=== PATIENT | male | born 1995 | race Two or more races ===

== ENCOUNTER 2017-08-26 00:30 | Emergency (ER) | payer OTHER ==
[~2017-08-26] VITALS: Ht 172.7 cm; Wt 63.5 kg
[~2017-08-26 00:30] MED LIST: ALBUTEROL SULF8.5 GM INH; HUMALOG100 UNIT/4 SUBQ; LANTUS SOL100 UNIT/1 SUBQ; NORCO 5-325 TA1 EACH ORAL; ROBITUSSIN DM5 ML GT
[2017-08-26 00:40] VITALS: BP 120/79
[2017-08-26 01:21] LABS: BASOPHILS % (AUTO) 0.5 % (0.0-2.0); LYMPHOCYTES % (AUTO) 11.7 % (20.0-45.0); MEAN CORPUSCULAR HEMOGLOBIN 28.5 PG (27.0-31.0); MEAN CORPUSCULAR VOLUME 89 FL (80-99); MEAN PLATELET VOLUME 10.4 FL (6.5-10.1); MONOCYTES % (AUTO) 7.7 % (1.0-10.0); PLATELET COUNT 228 K/UL (150-450); RED BLOOD COUNT 5.93 M/UL (4.70-6.10); WHITE BLOOD COUNT 11.3 K/UL (4.8-10.8)
[2017-08-26 01:33] LABS: ANION GAP 20 mmol/L (5-15); CALCIUM 9.6 MG/DL (8.5-10.1); CARBON DIOXIDE 18 MMOL/L (21-32); CHLORIDE 94 MMOL/L (98-107); CREATININE 1.4 MG/DL (0.55-1.30); GLOMERULAR FILTRATION RATE > 60 mL/min (>60); SODIUM 132 MMOL/L (136-145)
[2017-08-26 01:53] LABS: ALANINE AMINOTRANSFERASE 19 U/L (12-78); ASPARTATE AMINO TRANSFERASE 16 U/L (15-37); LIPASE 38 U/L (73-393); TOTAL PROTEIN 8.5 G/DL (6.4-8.2)
--- NOTE | 2017-08-26 02:29 | Emergency Room Report ---
History of Present Illness General Chief Complaint: Vomiting Source: Patient Present Illness HPI Patient present with complaints of nausea vomiting upper abdominal pain Patient reports that he sometimes misses a dose of his insulin and therefore starts building up acid in his system Patient has had several bouts of vomiting Denies any fevers or chills patient complains of diffuse body aching discomfort denies any neck pain or photophobia however Allergies: Coded Allergies: No Known Allergies (Unverified , 03/27/14) Patient History Past Medical History: see triage record Pertinent Family History: none Reviewed Nursing Documentation: PMH: Agreed, PSxH: Agreed Nursing Documentation-PMH Hx Cardiac Problems: No Hx Asthma: Yes - when he was younger Hx Diabetes: Yes Hx Cancer: No Hx Gastrointestinal Problems: No Hx Neurological Problems: No Review of Systems All Other Systems: negative except mentioned in HPI Physical Exam Vital Signs Date Time Temp Pulse Resp B/P (MAP) Pulse Ox O2 Delivery O2 Flow Rate FiO2 08/26/17 00:35 97.9 108 16 115/80 98 Sp02 EP Interpretation: reviewed, normal General Appearance: mild distress - Appears mildly uncomfortable actively nauseated Head: normocephalic, atraumatic Eyes: bilateral eye PERRL, bilateral eye EOMI ENT: hearing grossly normal, normal pharynx, TMs + canals normal, uvula midline Neck: full range of motion, supple, no meningismus, no bony tend Respiratory: lungs clear, normal breath sounds, no rhonchi, no respiratory distress, no retraction, no accessory muscle use Cardiovascular #1: normal peripheral pulses, no edema, no gallop, no JVD, no murmur, tachycardia Gastrointestinal: normal bowel sounds, non tender, soft, no mass, no organomegaly, non-distended, no guarding, no hernia, no pulsatile mass, no rebound Genitourinary: no CVA tenderness Musculoskeletal: normal inspection Neurologic: oriented x3, responsive, screen examiner III-XII nml as tested, motor strength/ tone normal, sensory intact Psychiatric: mood/affect normal Skin: normal color, no rash, warm/dry, palpation normal Lymphatic: normal inspection, no adenopathy Medical Decision Making Diagnostic Impression: Primary Impression: Hyperglycemia Additional Impression: Vomiting ER Course Multiple differentials considered including but not limited to DKA, gastroenteritis electrolyte pathology Patient has IV access and extensive blood work initiated Patient does show some signs of acidosis however on clinical exam appears significantly improved Further hydration and insulin provided Glucoses decreasing appropriately patient does not require a trip at this time And secondary to insurance purposes requires transfer , Labs Test 08/26/17 01:00 White Blood Count 11.3 K/UL (4.8-10.8) Red Blood Count 5.93 M/UL (4.70-6.10) Hemoglobin 16.9 G/DL (14.2-18.0) Hematocrit 52.7 % (42.0-52.0) Mean Corpuscular Volume 89 FL (80-99) Mean Corpuscular Hemoglobin 28.5 PG (27.0-31.0) Mean Corpuscular Hemoglobin Concent 32.0 G/DL (32.0-36.0) Red Cell Distribution Width 12.0 % (11.6-14.8) Platelet Count 228 K/UL (150-450) Mean Platelet Volume 10.4 FL (6.5-10.1) Neutrophils (%) (Auto) 80.0 % (45.0-75.0) Lymphocytes (%) (Auto) 11.7 % (20.0-45.0) Monocytes (%) (Auto) 7.7 % (1.0-10.0) Eosinophils (%) (Auto) 0.0 % (0.0-3.0) Basophils (%) (Auto) 0.5 % (0.0-2.0) Sodium Level 132 MMOL/L (136-145) Potassium Level 4.0 MMOL/L (3.5-5.1) Chloride Level 94 MMOL/L (98-107) Carbon Dioxide Level 18 MMOL/L (21-32) Anion Gap 20 mmol/L (5-15) Blood Urea Nitrogen 16 mg/dL (7-18) Creatinine 1.4 MG/DL (0.55-1.30) Estimat Glomerular Filtration Rate > 60 mL/min (>60) Glucose Level 338 MG/DL (74-106) Calcium Level 9.6 MG/DL (8.5-10.1) Total Bilirubin 1.0 MG/DL (0.2-1.0) Aspartate Amino Transf (AST/SGOT) 16 U/L (15-37) Alanine Aminotransferase (ALT/SGPT) 19 U/L (12-78) Alkaline Phosphatase 130 U/L (46-116) Total Protein 8.5 G/DL (6.4-8.2) Albumin 4.2 G/DL (3.4-5.0) Globulin 4.3 g/dL Albumin/Globulin Ratio 1.0 (1.0-2.7) Lipase 38 U/L (73-393) Last Vital Signs Date Time Temp Pulse Resp B/P (MAP) Pulse Ox O2 Delivery O2 Flow Rate FiO2 08/26/17 00:35 97.9 108 16 115/80 98 Status: improved Disposition: XFER SHT-TRM HOSP Condition: Improved Referrals: [facility] (PCP) PHILIP GRAY D.O. Aug 26, 2017 02:29
[2017-08-26] MEDS: Metoclopramide 10mg/2ml Inj IVP ONE (02:41)
[2017-08-26 02:50] VITALS: BP 118/78
[2017-08-26 03:40] VITALS: BP 120/79
[2017-08-26 03:59] VITALS: BP 120/79
== END 2017-08-26 03:59 | disposition short-term general hospital (02) ==
LOC: EMR 00:56 → EDBEDREQ 02:16 → EMR 03:59
DX: E11.65 Type 2 diabetes mellitus with hyperglycemia (principal); R11.2 Nausea with vomiting, unspecified
CPT/HCPCS: 36415; 80053; 82962; 83690; 85025; 96361; 96374; 96375; 99284; J1815; J2405; J2765

== ENCOUNTER 2017-10-26 21:01 | Inpatient (IN) | payer OTHER ==
[~2017-10-26] VITALS: Ht 172.7 cm; Wt 56.7 kg
[2017-10-26] MEDS ORDERED: LR 1000ml 1,000 ML IV SCH ×2 (21:30→23:00)
[2017-10-26 22:16] VITALS: BP 127/84
[2017-10-26 22:20] LABS: HEMATOCRIT 52.2 % (42.0-52.0); HEMOGLOBIN 16.9 G/DL (14.2-18.0); MEAN CORPUSCULAR VOLUME 88 FL (80-99); PLATELET COUNT 237 K/UL (150-450); RED BLOOD COUNT 5.95 M/UL (4.70-6.10); RED CELL DISTRIBUTION WIDTH 12.2 % (11.6-14.8); WHITE BLOOD COUNT 13.9 K/UL (4.8-10.8)
[2017-10-26 22:21] LABS: BASOPHILS % (AUTO) 0.6 % (0.0-2.0); LYMPHOCYTES % (AUTO) 6.7 % (20.0-45.0); MONOCYTES % (AUTO) 5.7 % (1.0-10.0)
[2017-10-26 22:33] LABS: ANION GAP 24 mmol/L (5-15); BLOOD UREA NITROGEN 8 mg/dL (7-18); CALCIUM 9.1 MG/DL (8.5-10.1); CARBON DIOXIDE 10 MMOL/L (21-32); CHLORIDE 96 MMOL/L (98-107); CREATININE 1.2 MG/DL (0.55-1.30); POTASSIUM 4.2 MMOL/L (3.5-5.1); SODIUM 130 MMOL/L (136-145)
[2017-10-26 22:37] LABS: ALANINE AMINOTRANSFERASE 23 U/L (12-78); ALBUMIN 4.4 G/DL (3.4-5.0); ALBUMIN/GLOBULIN RATIO 1.1 (1.0-2.7); ALKALINE PHOSPHATASE 134 U/L (46-116); ASPARTATE AMINO TRANSFERASE 16 U/L (15-37); BILIRUBIN,TOTAL 0.9 MG/DL (0.2-1.0)
[2017-10-26 22:50] LABS: APPEARANCE,URINE CLEAR; BILIRUBIN, URINE NEGATIVE (NEGATIVE); COLOR,URINE PALE YELLOW; GLUCOSE, URINE (UA) 4+ (NEGATIVE); KETONES,URINE 4+ (NEGATIVE); LEUKOCYTE ESTERASE ,URINE NEGATIVE (NEGATIVE); NITRITE,URINE NEGATIVE (NEGATIVE); PH,URINE 5 (4.5-8.0); PROTEIN,URINE 2+ (NEGATIVE); UROBILINOGEN,URINE NORMAL MG/DL (0.0-1.0)
[2017-10-26] MEDS ORDERED: D5 1/2NS 1,000 ML IV SCH (23:00)
[2017-10-27] VITALS (22 sets, daily range): BP systolic 99–127; BP diastolic 55–79
[2017-10-27 01:30] LABS: ANION GAP 18 mmol/L (5-15); BLOOD UREA NITROGEN 7 mg/dL (7-18); CALCIUM 8.5 MG/DL (8.5-10.1); CARBON DIOXIDE 13 MMOL/L (21-32); CHLORIDE 99 MMOL/L (98-107); CREATININE 1.1 MG/DL (0.55-1.30); POTASSIUM 4.1 MMOL/L (3.5-5.1); SODIUM 130 MMOL/L (136-145)
--- NOTE | 2017-10-27 03:02 | Emergency Room Report ---
History of Present Illness General Chief Complaint: Vomiting Source: Patient, Medical Record Present Illness HPI Is a 22-year-old male with a history of insulin-dependent diabetes with frequent DKA. He came in with chief complaint of vomiting and weakness. He said he was at [facility] the last few days for DKA. He sat out AMA because for the last 2 days he was not getting insulin because his sugar was in the 200. He said he's been vomiting has not been getting medicine for that. No IV fluid. This is per patient. I cannot confirm this. He has been feeling sick for the last 2 days. Vomiting is nonbloody nonbilious. No diarrhea. Similar symptom in the past. Allergies: Coded Allergies: No Known Allergies (Unverified , 03/27/14) Patient History Past Medical History: see triage record, old chart reviewed, DM Past Surgical History: other Pertinent Family History: none Social History: Denies: smoking Immunizations: other Reviewed Nursing Documentation: PMH: Agreed, PSxH: Agreed Nursing Documentation-PMH Past Medical History: No History, Except For Hx Cardiac Problems: No Hx Asthma: Yes - when he was younger Hx Diabetes: Yes Hx Cancer: No Hx Gastrointestinal Problems: No Hx Neurological Problems: No Review of Systems Eye: Denies: eye pain, blurred vision ENT: Denies: ear pain, nose congestion, throat swelling Respiratory: Denies: cough, shortness of breath Cardiovascular: Denies: chest pain, palpitations Gastrointestinal: Reports: nausea, vomiting, Denies: abdominal pain, diarrhea Musculoskeletal: Denies: back pain, joint pain Skin: Denies: rash Neurological: Denies: headache, numbness Endocrine: Denies: increased thirst, increased urine Hematologic/Lymphatic: Denies: easy bruising All Other Systems: negative except mentioned in HPI Physical Exam Vital Signs Date Time Temp Pulse Resp B/P (MAP) Pulse Ox O2 Delivery O2 Flow Rate FiO2 10/26/17 21:06 97.9 98 14 123/72 96 Room Air 97.9 vitals unremarkable Sp02 EP Interpretation: reviewed, normal General Appearance: alert, mild distress, thin Head: normocephalic, atraumatic Eyes: bilateral eye PERRL, bilateral eye EOMI ENT: hearing grossly normal, normal pharynx Neck: full range of motion, supple, no meningismus Respiratory: chest non-tender, lungs clear, normal breath sounds Cardiovascular #1: regular rate, rhythm, no murmur Gastrointestinal: normal bowel sounds, no mass, no organomegaly, no bruit, non- distended, tenderness - Mild, diffuse Musculoskeletal: back normal, gait/station normal, normal range of motion Neurologic: alert, oriented x3 Psychiatric: mood/affect normal Skin: warm/dry Procedures Critical Care Time Critical Care Time Critical care is mandated in this patient who presented with DKA. Patient require my urgent intervention to attenuate the risks of metabolic collapse which may lead to cardiovascular collapse and . Critical care time is 35 minutes excluding any reportable procedure. Critical care time included evaluation, multiple reevaluation, looking at old charts, interpreting laboratory and diagnostic data, discussing case with patient and family and consultants, and charting. Medical Decision Making Diagnostic Impression: Primary Impression: Diabetic ketoacidosis Qualified Codes: E10.10 - Type 1 diabetes mellitus with ketoacidosis without coma Additional Impression: Proteinuria Qualified Codes: R80.9 - Proteinuria, unspecified ER Course Patient presents with DKA. Bicarbonate is low and this is probably secondary to vomiting, dehydration, and DKA. Blood sugar back to elevated. Patient currently on insulin drip. Slowly improving. Will admit to the ICU. No evidence of infection. Lab Results Impression labs showed DKA EKG Diagnostic Results Rate: normal Rhythm: NSR ST Segments: no acute changes Rhythm Strip Diag. Results Rhythm Strip Time: 03:01 EP Interpretation: yes Rate: 85 Rhythm: NSR, no PVC's Last Vital Signs Date Time Temp Pulse Resp B/P (MAP) Pulse Ox O2 Delivery O2 Flow Rate FiO2 10/27/18 02:27 98.9 88 18 119/67 100 Room Air 98.9 Status: improved Disposition: ADMITTED INPATIENT Condition: Critical Referrals: [facility],REFERRING (PCP) STAN CABRAL M.D. Oct 27, 2017 03:02
[2017-10-27] MEDS ORDERED: Insulin Rate Change 1 Each MISC PRN ×2 (07:00→08:30)
[2017-10-27] MEDS ORDERED: Miralax 17gm pkt ORAL PRN (07:00)
[2017-10-27] MEDS ORDERED: Albuterol/Ipratropium 3ml neb HHN PRN (07:00)
[2017-10-27] MEDS ORDERED: Nitroglycerin Subl 0.4mg tab SL PRN (07:00)
[2017-10-27] MEDS ORDERED: LORazepam Inj 2mg/ml 1ml IV PRN (07:00)
[2017-10-27] MEDS: Morphine Sulfate 4mg/ml Inj IVP PRN ×2 (08:01→20:12)
[2017-10-27] MEDS: D5NS 1,000 ML IV SCH ×2 (08:43→18:14)
[2017-10-27] MEDS: Heparin 5000 units/ml inj SUBQ SCH ×2 (08:46→21:22)
--- NOTE | 2017-10-27 10:37 | Cardiology Report ---
APPROVED REPORT EKG Measurement Heart [id number] Normal sinus rhythm Early repolarization Nonspecific ST abnormality Abnormal ECG
--- NOTE | 2017-10-27 10:50 | History and Physical ---
History of Present Illness General Date patient seen: Oct 27, 2017 Reason for Hospitalization: Vomiting Present Illness HPI 22-year-old male with pmhx DMI and recurrent DKA presents to [facility] Emergency room with complaint of vomiting and weakness. According to the patient he was just hospitalized at another hospital a few days ago for the same complaint. However the patient states he did not like the hospital and decided to sign out against medical advice. Upon presentation in the emergency room, the patient was afebrile. Vital signs were stable. Leukocytosis -13.9. Sodium was- 130. Anion gap -24. CO2- 10. ABG shows a pH -7.25 and pCO2 -19.4 with bicarbonate -8.4. Blood sugar -306. The patient was admitted with diagnosis of diabetic ketoacidosis and will continue his care in the intensive care unit. The patient has been started on generous IV fluids hydration. Renal parameters and electrolytes will be closely monitored. Antiemetic provided as needed. Electrolytes corrected as needed. The patient noted to have low potassium, low magnesium, and low phosphorus. Allergies: Coded Allergies: No Known Allergies (Unverified , 03/27/14) Medication History Scheduled Guaifenesin/Dextromethorphan (Guaifenesin Dm Syrup), 5 ML GT QID Insulin Glargine (Lantus), 28 UNITS SUBQ BEDTIME Insulin Lispro (Humalog), 8 UNITS SUBQ TID Scheduled PRN Albuterol Sulfate* (Albuterol Sulfate Mdi*), 2 PUFF INH Q4H PRN for For Cough Patient History Healthcare decision maker Resuscitation status Full Code Advanced Directive on File Past Medical/Surgical History Past Medical/Surgical History: (1) Diabetes mellitus (2) Hand fracture, right (3) Encounter for medication refill (4) Bronchitis (5) Diabetic ketoacidosis (6) Vomiting (7) Nausea, vomiting, and diarrhea Social History Social History: (1) Hand fracture, right (2) Encounter for medication refill (3) Bronchitis (4) Diabetes mellitus (5) Diabetic ketoacidosis (6) Vomiting (7) Nausea, vomiting, and diarrhea Review of Systems Constitutional: Reports: malaise, weakness Gastrointestinal: Reports: nausea, vomiting All Other Systems: negative except mentioned in HPI Physical Exam General Appearance: WD/WN Lines, tubes and drains: peripheral HEENT: normocephalic, atraumatic Neck: non-tender, normal alignment Respiratory/Chest: chest wall non-tender, normal breath sounds Breasts: no masses Cardiovascular/Chest: normal peripheral pulses Abdomen: normal bowel sounds, non tender Genitourinary/Rectal: normal genital exam Extremities: normal range of motion, non-tender, normal inspection, no calf tenderness Skin Exam: normal pigmentation, warm/dry Neurologic: hub borer II-XII grossly normal, no motor/sensory deficits Last 24 Hour Vital Signs Date Time Temp Pulse Resp B/P (MAP) Pulse Ox O2 Delivery O2 Flow Rate FiO2 10/27/17 10:00 87 20 113/66 96 Room Air 10/27/17 09:00 93 20 116/72 96 Room Air 10/27/17 08:41 97.8 10/27/17 08:01 97.8 10/27/17 08:00 97.8 94 20 114/72 96 Room Air 10/27/17 07:00 91 20 115/73 97 Room Air 10/27/17 06:00 83 20 118/75 99 Room Air 10/27/17 05:30 81 10/27/17 05:30 98.4 79 18 119/76 100 Room Air 10/27/17 05:15 98.9 83 20 111/71 99 Room Air 98.9 10/27/17 04:47 98.9 83 20 111/71 99 Room Air 98.9 10/27/17 03:45 98.9 86 18 112/75 100 Room Air 98.9 10/27/17 02:27 98.9 88 18 119/67 100 Room Air 98.9 10/27/17 01:05 98.9 104 16 116/71 100 Room Air 98.9 10/26/17 22:16 97.9 82 18 127/84 96 Room Air 97.9 10/26/17 21:06 97.9 98 14 123/72 96 Room Air 97.9 Intake and Output 10/26/17 10/27/17 19:00 07:00 Intake Total 100 ml Output Total 250 ml Balance -150 ml Intake Oral 0 ml IV Total 100 ml Output Urine Total 250 ml # Voids 1 Laboratory Tests Test 10/26/17 21:58 10/26/17 22:45 10/26/17 22:55 10/27/17 01:10 White Blood Count 13.9 K/UL (4.8-10.8) H Red Blood Count 5.95 M/UL (4.70-6.10) Hemoglobin 16.9 G/DL (14.2-18.0) Hematocrit 52.2 % (42.0-52.0) H Mean Corpuscular Volume 88 FL (80-99) Mean Corpuscular Hemoglobin 28.4 PG (27.0-31.0) Mean Corpuscular Hemoglobin Concent 32.5 G/DL (32.0-36.0) Red Cell Distribution Width 12.2 % (11.6-14.8) Platelet Count 237 K/UL (150-450) Mean Platelet Volume 10.1 FL (6.5-10.1) Neutrophils (%) (Auto) 87.0 % (45.0-75.0) H Lymphocytes (%) (Auto) 6.7 % (20.0-45.0) L Monocytes (%) (Auto) 5.7 % (1.0-10.0) Eosinophils (%) (Auto) 0.0 % (0.0-3.0) Basophils (%) (Auto) 0.6 % (0.0-2.0) Sodium Level 130 MMOL/L (136-145) L 130 MMOL/L (136-145) L Potassium Level 4.2 MMOL/L (3.5-5.1) 4.1 MMOL/L (3.5-5.1) Chloride Level 96 MMOL/L (98-107) L 99 MMOL/L (98-107) Carbon Dioxide Level 10 MMOL/L (21-32) L 13 MMOL/L (21-32) L Anion Gap 24 mmol/L (5-15) H 18 mmol/L (5-15) H Blood Urea Nitrogen 8 mg/dL (7-18) 7 mg/dL (7-18) Creatinine 1.2 MG/DL (0.55-1.30) 1.1 MG/DL (0.55-1.30) Estimat Glomerular Filtration Rate > 60 mL/min (>60) > 60 mL/min (>60) Glucose Level 306 MG/DL (74-106) H 247 MG/DL (74-106) H Calcium Level 9.1 MG/DL (8.5-10.1) 8.5 MG/DL (8.5-10.1) Total Bilirubin 0.9 MG/DL (0.2-1.0) Aspartate Amino Transf (AST/SGOT) 16 U/L (15-37) Alanine Aminotransferase (ALT/SGPT) 23 U/L (12-78) Alkaline Phosphatase 134 U/L (46-116) H Total Protein 8.4 G/DL (6.4-8.2) H Albumin 4.4 G/DL (3.4-5.0) Globulin 4.0 g/dL Albumin/Globulin Ratio 1.1 (1.0-2.7) Lipase 36 U/L (73-393) L Urine Color Pale yellow Urine Appearance Clear Urine pH 5 (4.5-8.0) Urine Specific [place] 1.025 (1.005-1.035) Urine Protein 2+ (NEGATIVE) H Urine Glucose (UA) 4+ (NEGATIVE) H Urine Ketones 4+ (NEGATIVE) H Urine Occult Blood 1+ (NEGATIVE) H Urine Nitrite Negative (NEGATIVE) Urine Bilirubin Negative (NEGATIVE) Urine Urobilinogen Normal MG/DL (0.0-1.0) Urine Leukocyte Esterase Negative (NEGATIVE) Urine RBC 0-2 /HPF (0 - 0) H Urine WBC 0-2 /HPF (0 - 0) Urine Squamous Epithelial Cells None /LPF (NONE/OCC) Urine Bacteria Occasional /HPF (NONE) Arterial Blood pH 7.252 (7.350-7.450) Arterial Blood Partial Pressure CO2 19.4 mmHg (35.0-45.0) *L Arterial Blood Partial Pressure O2 112.9 mmHg (75.0-100.0) H Arterial Blood HCO3 8.4 mmol/L (22.0-26.0) L Arterial Blood Oxygen Saturation 98.1 % (92.0-98.0) H Arterial Blood Base Excess -16.3 Avel Test Positive Height (Feet): 5 Height (Inches): 8.00 Weight (Pounds): 126 Medications Current Medications Medications (Trade) Dose Ordered Sig/Arianne Route PRN Reason Start Time Stop Time Status Last Admin Dose Admin Acetaminophen (Tylenol) 650 mg Q4H PRN ORAL Fever (temp>100.5F) 10/27/17 07:00 11/26/17 06:59 Albuterol/ Ipratropium (Albuterol/ Ipratropium) 3 ml Q4H PRN HHN Shortness of Breath 10/27/17 07:00 11/01/17 06:59 Dextrose (Dextrose 50%) PRN PRN IV HYPOGLYCEMIA 10/27/17 07:00 11/26/17 06:59 Dextrose/Sodium Chloride 1,000 ml @ 100 mls/hr Q10H IV 10/27/17 08:45 11/26/17 08:44 10/27/17 08:43 Heparin Sodium (Porcine) (Heparin 5000 units/ml) 5,000 units EVERY 12 HOURS SUBQ 10/27/17 09:00 11/26/17 08:59 10/27/17 08:46 Insulin Human Regular (NovoLIN R) 5 units PRN PRN IV BS 200-299 10/27/17 07:00 11/26/17 06:59 Insulin Human Regular (NovoLIN R) 10 units PRN PRN IV BS=>300 10/27/17 07:00 11/26/17 06:59 Insulin Human Regular 100 units/ Sodium Chloride 101 ml @ 0 mls/hr Q24H IV 10/27/17 08:45 11/26/17 08:44 10/27/17 10:15 Lorazepam (Ativan 2mg/ml 1ml) 2 mg Q2H PRN IV agitation 10/27/17 07:00 11/03/17 06:59 Miscellaneous Medication (Insulin Rate Change) 1 ea PRN PRN MISC Hyperglycemia 10/27/17 08:30 11/26/17 08:29 Morphine Sulfate (Morphine Sulfate) 4 mg Q4H PRN IVP Severe Pain (Pain Scale 7-10) 10/27/17 07:00 11/03/17 06:59 10/27/17 08:01 Nitroglycerin (Ntg) 0.4 mg Q5M PRN SL Prn Chest Pain 10/27/17 07:00 11/26/17 06:59 Ondansetron HCl (Zofran) 4 mg Q6H PRN IVP Nausea & Vomiting 10/27/17 07:00 11/26/17 06:59 10/27/17 07:33 Polyethylene Glycol (Miralax) 17 gm DAILYPRN PRN ORAL Constipation 10/27/17 07:00 11/26/17 06:59 Assessment/Plan Problem List: (1) Diabetic ketoacidosis ICD Codes: E13.10 - Other specified diabetes mellitus with ketoacidosis without coma SNOMED: 358639501 Qualifiers: Qualified Codes: E10.10 - Type 1 diabetes mellitus with ketoacidosis without coma (2) Vomiting ICD Codes: R11.10 - Vomiting, unspecified SNOMED: 354683538 Qualifiers: (3) Nausea, vomiting, and diarrhea ICD Codes: R11.2 - Nausea with vomiting, unspecified; R19.7 - Diarrhea, unspecified SNOMED: 3768975 Status: stable, progressing Assessment/Plan IV fluids Insulin drip Check abg Start diet when less nauseous DVT prophylaxis. CINDY GARY Oct 27, 2017 10:50
[2017-10-28] VITALS (17 sets, daily range): BP systolic 100–140; BP diastolic 55–96
[2017-10-28] MEDS ORDERED: Insulin Rate Change 1 Each MISC PRN (02:30)
[2017-10-28] MEDS: D5NS 1,000 ML IV SCH (04:27)
[2017-10-28] MEDS: Morphine Sulfate 4mg/ml Inj IVP PRN (05:26)
[2017-10-28 06:36] LABS: BASOPHILS % (AUTO) 1.6 % (0.0-2.0); EOSINOPHILS % (AUTO) 0.2 % (0.0-3.0); HEMOGLOBIN 14.1 G/DL (14.2-18.0); LYMPHOCYTES % (AUTO) 17.8 % (20.0-45.0); MEAN CORPUSCULAR VOLUME 85 FL (80-99); NEUTROPHILS % (AUTO) 65.3 % (45.0-75.0); PLATELET COUNT 170 K/UL (150-450); RED BLOOD COUNT 4.94 M/UL (4.70-6.10); RED CELL DISTRIBUTION WIDTH 11.8 % (11.6-14.8); WHITE BLOOD COUNT 7.1 K/UL (4.8-10.8)
[2017-10-28 06:49] LABS: ALANINE AMINOTRANSFERASE 21 U/L (12-78); ALBUMIN 2.9 G/DL (3.4-5.0); ALBUMIN/GLOBULIN RATIO 0.9 (1.0-2.7); ALKALINE PHOSPHATASE 93 U/L (46-116); ANION GAP 8 mmol/L (5-15); ASPARTATE AMINO TRANSFERASE 15 U/L (15-37); BILIRUBIN,TOTAL 0.9 MG/DL (0.2-1.0); BLOOD UREA NITROGEN 3 mg/dL (7-18); CALCIUM 8.2 MG/DL (8.5-10.1); CARBON DIOXIDE 26 MMOL/L (21-32); CHLORIDE 104 MMOL/L (98-107); CREATININE 0.8 MG/DL (0.55-1.30); POTASSIUM 2.8 MMOL/L (3.5-5.1); SODIUM 138 MMOL/L (136-145)
--- NOTE | 2017-10-28 07:37 | Pulmonolgy Critical Care Note ---
Critical Care - Asmt/Plan Assessment/Plan: ASSESSMENT DKA DM type 1 OOC Leukocytosis HypoNa e/lyte imbalance : hypo K, hypo Mg, hypo P PLAN OF CARE ICU IVF Insulin gtt per protocol anion gap closed dc insulin gtt and change IVF to one w/out dextrose start on Levemir and premeal insulin Endo eval Monitor renal parameters lytes, a/emetic prn Leukocytosis likely reactive, no evidence of infection, resolved DVT prophylaxis replace lytes transfer to [facility] floor case discussed and evaluated by supervising physician Critical Care - Objective Last 24 Hour Vital Signs Date Time Temp Pulse Resp B/P (MAP) Pulse Ox O2 Delivery O2 Flow Rate FiO2 10/28/17 06:00 73 15 117/73 100 Room Air 10/28/17 05:00 85 15 117/73 100 Room Air 10/28/17 04:00 97.9 81 13 100/57 97 Room Air 10/28/17 03:00 80 15 100/57 98 Room Air 10/28/17 02:00 83 15 112/68 100 Room Air 10/28/17 01:00 86 14 116/71 97 Room Air 10/28/17 00:00 98.1 80 13 110/63 99 Room Air 10/28/17 00:00 82 10/27/17 23:00 87 14 99/55 99 Room Air 10/27/17 22:00 95 15 119/66 99 Room Air 10/27/17 21:00 94 15 118/78 97 Room Air 10/27/17 20:00 91 10/27/17 19:12 94 17 Room Air 10/27/17 19:00 87 20 114/71 99 Room Air 10/27/17 18:00 88 20 115/71 99 Room Air 10/27/17 17:00 87 20 111/67 99 Room Air 10/27/17 16:00 98.5 92 20 115/65 99 Room Air 10/27/17 16:00 92 10/27/17 15:00 84 20 122/64 98 Room Air 10/27/17 14:00 78 20 114/64 98 Room Air 10/27/17 13:00 85 20 113/64 96 Room Air 10/27/17 12:00 98.4 85 20 120/79 100 Room Air 10/27/17 12:00 76 10/27/17 11:00 86 20 127/62 96 Room Air 10/27/17 10:00 87 20 113/66 96 Room Air 10/27/17 09:00 93 20 116/72 96 Room Air 10/27/17 08:41 97.8 10/27/17 08:01 97.8 10/27/17 08:00 97.8 94 20 114/72 96 Room Air Status: awake Condition: improving HEENT: atraumatic, normocephalic Neck: full ROM Heart: HR/BP stable - SR on tele Abdomen: soft, non-tender, active bowel sounds Extremities: no C/C/E Accucheck: 150 Critical Care - Subjective ROS Limited/Unobtainable: No Interval Events: BS stabilized anion gap closed Na up to normal low K, Mg, and P No CP, no SOB, no abdominal pain Condition: improving EKG Rhythm: Sinus Rhythm Sputum Amount: None Fluids: D5 NS at 100 Drips: 1.2 u/hr I&O: Intake and Output 10/27/17 10/28/17 19:00 07:00 Intake Total 1582.5 ml 1112.4 ml Output Total 350 ml 1300 ml Balance 1232.5 ml -187.6 ml Intake Oral 470 ml 200 ml IV Total 1112.5 ml 912.4 ml Output Urine Total 350 ml 1300 ml # Voids 2 CXR: Negative for infiltrate [place] (Ayesha Walter NP Oct 28, 2017 07:37
[2017-10-28 08:00] LABS: INR 1.2 (0.9-1.1)
[2017-10-28] MEDS ORDERED: Potassium Chloride 40 MEQ in Sodium Chloride 500ML 550 ML IVPB ONE ×2 (09:00→13:00)
[2017-10-28 09:02] LABS: ALANINE AMINOTRANSFERASE 16 U/L (12-78); ALKALINE PHOSPHATASE 91 U/L (46-116); ASPARTATE AMINO TRANSFERASE 17 U/L (15-37); BILIRUBIN,DIRECT 0.1 MG/DL (0.0-0.3); BILIRUBIN,TOTAL 0.9 MG/DL (0.2-1.0); PHOSPHORUS 1.7 MG/DL (2.5-4.9)
--- NOTE | 2017-10-28 09:32 | Diagnostic Imaging Report ---
Indication: Reason For Exam: DYSPNEA Technique: One view of the chest Comparison: Findings: Lungs and pleural spaces are clear. There is mild central bronchial wall thickening. Heart size is normal Impression: Mild central bronchial wall thickening, could indicate asthma or bronchitis Negative for infiltrate
[2017-10-28] MEDS: Heparin 5000 units/ml inj SUBQ SCH (09:51)
[2017-10-28] MEDS ORDERED: NovoLOG Insulin Flexpen SUBQ SCH ×3 (11:50→21:00)
[2017-10-28] MEDS ORDERED: Levemir Flexpen SUBQ SCH ×2 (13:00)
[2017-10-28] MEDS ORDERED: Potassium Phosphate 20 MM in NS 275 ML IV ONE (13:00)
[2017-10-28] MEDS ORDERED: Tubing IV Secondary IV ONE (16:59)
[2017-10-28] MEDS ORDERED: D5NS 1000ml IV ONE ×2 (16:59)
[2017-10-28] MEDS ORDERED: D5 1/2NS 1000ml IV ONE (16:59)
--- NOTE | 2017-10-29 08:15 | Geriatric Medicine Prog Note ---
DATE: 10/29/2017 NOTE: POOR AUDIO SUBJECTIVE: hospital. stable. controlled. The patient was leaving AMA. discharge. Ayaan Pitts M.D. DR: DUKE JOB#: [id number] CC:
--- NOTE | 2017-10-29 08:15 | Consultation ---
DATE OF CONSULTATION: 10/29/2017 NOTE: POOR AUDIO ENDOCRINOLOGY CONSULTATION CONSULTING PHYSICIAN: Ayaan Pitts M.D. Tawana Casey M.D. REASON FOR CONSULTATION: Ayaan Pitts M.D. DR: LAINEY JOB#: [id number] CC:
--- NOTE | 2017-10-31 13:16 | Discharge Summary ---
Discharge Summary Hospital Course Date of Admission Oct 26, 2017 at 23:55 Date of Discharge Oct 28, 2017 at 17:00 Admitting Diagnosis Diabetic ketoacidosis DANIA Weinstein is a 22 year old male who was admitted on Oct 26, 2017 at 23:55 for Diabetic Ketoacidosis Hospital Course DC SUMMARY #[id number] Discharge Discharge Disposition Patient SIGNED AMA Discharge Diagnoses: [place] (Yaimamelissa)Ayesha NP Oct 31, 2017 13:16
--- NOTE | 2017-10-31 21:30 | Discharge Summary 2 SIG ---
DATE OF ADMISSION: 10/26/2017 DATE OF DISCHARGE: 10/28/2017 REASON FOR ADMISSION: 22-year-old male with history of diabetes and frequent DKA, presented to emergency department with complaint of vomiting and weakness. He was few days prior hospitalized at [facility] for DKA, but signed against medical advice. Upon presentation in the emergency room, the patient was afebrile. Vital signs were stable. Leukocytosis -13.9. Sodium was- 130. Anion gap -24. CO2- 10. ABG shows a pH -7.25 and pCO2 -19.4 with bicarbonate -8.4. Blood sugar -306. The patient was admitted with diagnosis of diabetic ketoacidosis to ICU. HOSPITAL COURSE: The patient admitted to ICU. The patient was started on insulin drip as per protocol. The patient was started on generous IV fluids hydration. Renal parameters and electrolytes were closely monitored. Antiemetic provided as needed. Electrolytes corrected as needed. The patient noted to have low potassium, low magnesium, and low phosphorus. Patient was on normal saline solution. Endocrinology consult was requested. Next day, leukocytosis resolved. The patient was slowly started on diet. Anion gap closed. Insulin drip was discontinued. The patient was started on Levemir and premeal insulin. Leukocytosis was likely reactive. There was no evidence of infection. Urinalysis and chest x-ray were negative. The patient was afebrile. DVT prophylaxis provided. Pst Supervisor seen and evaluated the patient. The patient stated that he had diabetic medication and supplies at home and knows how to check his blood sugar. Sodium next day- 138. Potassium, magnesium and phosphorus were replaced. The patient stated that he needed to go home urgently because he needed there. The risk and consequences of signing against medical advice were discussed with the patient. The patient verbalized understanding, signed the form, and left. FINAL DIAGNOSES: 1. Diabetic ketoacidosis, resolved. 2. Diabetes mellitus type 1, out of control. 3. Leukocytosis, resolved. 4. Hyponatremia, resolved. 5. Electrolyte imbalance; hypokalemia, hypomagnesemia, hypophosphatemia. Tawana Casey M.D. Ayesha Perry N.P. (Vanchtein) DR: Jason JOB#: [id number] CC: SCOTT
== END 2017-10-28 17:00 | disposition left against medical advice (07) | DRG 420 ==
LOC: EMR 21:22 → ICU 23:55 → EDBEDREQ 10-27 01:20
DX: E10.10 Type 1 diabetes mellitus with ketoacidosis without coma (principal); E83.42 Hypomagnesemia; E87.1 Hypo-osmolality and hyponatremia; R80.9 Proteinuria, unspecified; E87.6 Hypokalemia; E83.39 Other disorders of phosphorus metabolism; Z79.4 Long term (current) use of insulin; Z53.21 Procedure and treatment not carried out due to patient leaving prior to being seen by health care provider; Z91.19 Patient's noncompliance with other medical treatment and regimen
CPT/HCPCS: 36415; 36600; 71045; 80048; 80053; 80076; 81003; 82803; 82962; 83690; 83735; 84100; 85025; 85610; 85730; 87081; 93005; 94664; J1815; J2405; J8499; S5561

== ENCOUNTER 2017-11-23 06:11 | Emergency (ER) | payer OTHER ==
[~2017-11-23] VITALS: Ht 172.7 cm; Wt 61.2 kg
[2017-11-23] MEDS ORDERED: LR 1000ml 1,000 ML IV ONE (06:30)
[2017-11-23] MEDS ORDERED: Ketorolac 30mg Inj IV ONE (06:45)
[2017-11-23] MEDS: Lidocaine 2% Visc 15ml soln ORAL ONE ×2 (06:46→06:54)
--- NOTE | 2017-11-23 06:52 | Emergency Room Report ---
History of Present Illness General Chief Complaint: Vomiting Source: Patient Present Illness HPI This patient presents for recurrent nausea and vomiting. He also complains of epigastric pain. Patient has a history of insulin-dependent diabetes. He states that he was on a [place] tour and had not been watching his diet. He states he also had been drinking and using marijuana. He states that 3 days ago he developed nausea, vomiting epigastric pain. He states he has been unable to tolerate food. He denies diarrhea. He denies fever or chills. He denies cough or congestion. He denies shortness of breath. He has no other complaints. Allergies: Coded Allergies: No Known Allergies (Unverified , 03/27/14) Patient History Past Medical History: see triage record, DM, asthma Social History: Reports: alcohol use, drug use, Denies: smoking Reviewed Nursing Documentation: PMH: Agreed, PSxH: Agreed Nursing Documentation-PMH Hx Cardiac Problems: No Hx Asthma: Yes - when he was younger Hx Diabetes: Yes Hx Cancer: No Hx Gastrointestinal Problems: No Hx Neurological Problems: No Review of Systems All Other Systems: negative except mentioned in HPI Physical Exam Vital Signs Date Time Temp Pulse Resp B/P (MAP) Pulse Ox O2 Delivery O2 Flow Rate FiO2 11/23/17 06:13 96.0 125 16 128/82 98 Room Air 96.1 Sp02 EP Interpretation: reviewed, normal General Appearance: no apparent distress, alert, GCS 15, non-toxic Head: normocephalic, atraumatic Eyes: bilateral eye normal inspection, bilateral eye PERRL ENT: hearing grossly normal, normal pharynx, no angioedema, normal voice Neck: full range of motion, supple/symm/no masses Respiratory: chest non-tender, lungs clear, normal breath sounds, speaking full sentences Cardiovascular #1: regular rate, rhythm, no edema, tachycardia Gastrointestinal: normal bowel sounds, non-distended, no guarding, no rebound, tenderness - epigastrium Rectal: deferred Musculoskeletal: back normal, gait/station normal, normal range of motion, non- tender Neurologic: alert, oriented x3, responsive, motor strength/tone normal, sensory intact, speech normal Psychiatric: judgement/insight normal, memory normal, mood/affect normal, no suicidal/homicidal ideation Skin: normal color, no rash, warm/dry, well hydrated Medical Decision Making Diagnostic Impression: Primary Impression: DKA (diabetic ketoacidoses) Additional Impressions: Hypokalemia Persistent recurrent vomiting ER Course This patient went on a drinking and marijuana binge and is a type I diabetic. He presents with recurrent nausea, vomiting and epigastric pain and mild diabetic ketoacidosis. He was a given aggressive IV fluid resuscitation. He is also given a GI cocktail and IV Pepcid. He had significant improvement and has pain and symptoms. He did have an anion gap of 22. However, his blood sugar was 106 on arrival. After IV fluid resuscitation he dropped below a blood sugar of 25 and had to undergo D50 and was started on a D10 drip. I did not start an insulin drip for concern of hypoglycemia. The patient was admitted for further monitoring, evaluation and treatment. PT insurance company requested transfer. Pt accepted by Dr. Damon. This patient is critically ill. This patient required complex medical decision- making, aggressive intervention, extensive laboratory workup and monitoring. Critical care time: 40 minutes. Laboratory Tests Test 11/23/17 06:27 White Blood Count 11.8 K/UL (4.8-10.8) H Red Blood Count 6.17 M/UL (4.70-6.10) H Hemoglobin 17.8 G/DL (14.2-18.0) Hematocrit 52.5 % (42.0-52.0) H Mean Corpuscular Volume 85 FL (80-99) Mean Corpuscular Hemoglobin 28.9 PG (27.0-31.0) Mean Corpuscular Hemoglobin Concent 34.0 G/DL (32.0-36.0) Red Cell Distribution Width 12.8 % (11.6-14.8) Platelet Count 303 K/UL (150-450) Mean Platelet Volume 7.8 FL (6.5-10.1) Neutrophils (%) (Auto) 76.7 % (45.0-75.0) H Lymphocytes (%) (Auto) 18.1 % (20.0-45.0) L Monocytes (%) (Auto) 4.4 % (1.0-10.0) Eosinophils (%) (Auto) 0.0 % (0.0-3.0) Basophils (%) (Auto) 0.8 % (0.0-2.0) Sodium Level 134 MMOL/L (136-145) L Potassium Level 3.4 MMOL/L (3.5-5.1) L Chloride Level 96 MMOL/L (98-107) L Carbon Dioxide Level 17 MMOL/L (21-32) L Anion Gap 22 mmol/L (5-15) H Blood Urea Nitrogen 8 mg/dL (7-18) Creatinine 1.1 MG/DL (0.55-1.30) Estimate Glomerular Filtration Rate > 60 mL/min (>60) Glucose Level 103 MG/DL (74-106) Calcium Level 9.3 MG/DL (8.5-10.1) Magnesium Level 1.8 MG/DL (1.8-2.4) Total Bilirubin 1.3 MG/DL (0.2-1.0) H Direct Bilirubin 0.2 MG/DL (0.0-0.3) Aspartate Amino Transferase (AST) 25 U/L (15-37) Alanine Aminotransferase (ALT) 30 U/L (12-78) Alkaline Phosphatase 140 U/L (46-116) H Total Protein 8.9 G/DL (6.4-8.2) H Albumin 4.6 G/DL (3.4-5.0) Globulin 4.3 g/dL Albumin/Globulin Ratio 1.1 (1.0-2.7) Acetone Level Positive-small (NEGATIVE) EKG Diagnostic Results Rate: tachycardiac Rhythm: other - S.tachycardia ST Segments: no acute changes Rhythm Strip Diag. Results EP Interpretation: yes Rate: 100's Rhythm: no PVC's, no ectopy, other Other Impression S.tachycardia Last Vital Signs Date Time Temp Pulse Resp B/P (MAP) Pulse Ox O2 Delivery O2 Flow Rate FiO2 11/23/17 06:13 96.0 125 16 128/82 98 Room Air 96.1 Disposition: XFER SHT-TRM HOSP Condition: Serious Referrals: [facility]ERR[facility] (PCP) NONA CHAPA D.O. Nov 23, 2017 06:52
[2017-11-23 06:58] LABS: BASOPHILS % (AUTO) 0.8 % (0.0-2.0); HEMATOCRIT 52.5 % (42.0-52.0); HEMOGLOBIN 17.8 G/DL (14.2-18.0); LYMPHOCYTES % (AUTO) 18.1 % (20.0-45.0); MEAN CORPUSCULAR VOLUME 85 FL (80-99); MONOCYTES % (AUTO) 4.4 % (1.0-10.0); NEUTROPHILS % (AUTO) 76.7 % (45.0-75.0); PLATELET COUNT 303 K/UL (150-450); RED BLOOD COUNT 6.17 M/UL (4.70-6.10); RED CELL DISTRIBUTION WIDTH 12.8 % (11.6-14.8); WHITE BLOOD COUNT 11.8 K/UL (4.8-10.8)
[2017-11-23 07:03] LABS: ANION GAP 22 mmol/L (5-15); BLOOD UREA NITROGEN 8 mg/dL (7-18); CALCIUM 9.3 MG/DL (8.5-10.1); CARBON DIOXIDE 17 MMOL/L (21-32); CHLORIDE 96 MMOL/L (98-107); CREATININE 1.1 MG/DL (0.55-1.30); POTASSIUM 3.4 MMOL/L (3.5-5.1); SODIUM 134 MMOL/L (136-145)
[2017-11-23 07:13] LABS: ALANINE AMINOTRANSFERASE 30 U/L (12-78); ALBUMIN 4.6 G/DL (3.4-5.0); ALBUMIN/GLOBULIN RATIO 1.1 (1.0-2.7); ALKALINE PHOSPHATASE 140 U/L (46-116); ASPARTATE AMINO TRANSFERASE 25 U/L (15-37); BILIRUBIN,DIRECT 0.2 MG/DL (0.0-0.3); BILIRUBIN,TOTAL 1.3 MG/DL (0.2-1.0)
[2017-11-23] MEDS ORDERED: Potassium Chloride 10 MEQ in NS 110 ML IVPB SCH ×4 (08:45)
[2017-11-23] MEDS ORDERED: Dextrose 10%/.45 SOD CHL 1,000 ML IV SCH (09:00)
[2017-11-23 09:08] VITALS: BP 101/60
[2017-11-23] MEDS ORDERED: Potassium Chloride 20 MEQ in NS 275 ML IVPB ONE (09:30)
[2017-11-23 10:09] VITALS: BP 120/61
[2017-11-23 11:23] VITALS: BP 114/56
[2017-11-23] MEDS ORDERED: Potassium Chloride 10 MEQ in D5 1/2NS 1,000 ML IV SCH (11:30)
[2017-11-23 11:45] LABS: APPEARANCE,URINE CLEAR; BILIRUBIN, URINE NEGATIVE (NEGATIVE); GLUCOSE, URINE (UA) 4+ (NEGATIVE); KETONES,URINE 4+ (NEGATIVE); LEUKOCYTE ESTERASE ,URINE 1+ (NEGATIVE); NITRITE,URINE NEGATIVE (NEGATIVE); PH,URINE 6 (4.5-8.0); PROTEIN,URINE 3+ (NEGATIVE); UROBILINOGEN,URINE NORMAL MG/DL (0.0-1.0)
[2017-11-23 11:56] LABS: COLOR,URINE YELLOW
[2017-11-23 12:00] VITALS: BP 112/54
--- NOTE | 2017-11-23 15:06 | Cardiology Report ---
APPROVED REPORT EKG Measurement Heart [id number] Sinus tachycardia Right atrial enlargement Inferior infarct, age undetermined Abnormal ECG
== END 2017-11-23 12:03 | disposition short-term general hospital (02) ==
LOC: EMR 06:35
DX: E11.10 Type 2 diabetes mellitus with ketoacidosis without coma (principal); E87.6 Hypokalemia; R11.10 Vomiting, unspecified
CPT/HCPCS: 36415; 80053; 80307; 81003; 82009; 82248; 82962; 83735; 85025; 93005; 96374; 96375; 99291; J1885; J2405; J3480; J7050; J7120; S0028

== ENCOUNTER 2017-12-11 14:23 | Emergency (ER) | payer OTHER ==
[~2017-12-11] VITALS: Ht 172.7 cm; Wt 63.5 kg
[2017-12-11 14:50] VITALS: BP 104/66
[2017-12-11] MEDS ORDERED: Norco 5mg/325mg tab ORAL ONE (15:00)
[2017-12-11] MEDS ORDERED: Hydrogen Peroxide 473ml Bottle TOPIC ONE (15:00)
[2017-12-11 16:50] VITALS: BP 108/66
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
[2017-12-11] MEDS ORDERED: TYLENOL EXTRA500 MG ORAL (16:55)
[2017-12-11] MEDS ORDERED: CHLORHEXIDINE473 ML MM (16:55)
[2017-12-11 17:02] VITALS: BP 104/66
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
== END 2017-12-11 17:04 | disposition home or self-care (01) ==
LOC: EMR 15:00
DX: S00.83XA Contusion of other part of head, initial encounter (principal); S40.012A Contusion of left shoulder, initial encounter; S00.511A Abrasion of lip, initial encounter; Y04.2XXA Assault by strike against or bumped into by another person, initial encounter; Y92.9 Unspecified place or not applicable; E11.9 Type 2 diabetes mellitus without complications; J45.909 Unspecified asthma, uncomplicated
CPT/HCPCS: 70450; 70486; 99284

== ENCOUNTER 2018-01-16 16:31 | Inpatient (IN) | payer SELFPAY ==
[2018-01-16] VITALS (10 sets, daily range): BP systolic 102–122; BP diastolic 56–76
[~2018-01-16] VITALS: Ht 170.2 cm; Wt 54.2 kg
[~2018-01-16 16:31] MED LIST changes: +CHLORHEXIDINE473 ML MM; +TYLENOL EXTRA500 MG ORAL
[2018-01-16] MEDS ORDERED: Metoclopramide 10mg/2ml Inj IVP ONE (17:00)
[2018-01-16] MEDS ORDERED: Morphine Sulfate 4mg/ml Inj IVP ONE (17:15)
[2018-01-16] MEDS ORDERED: Isovue-300 100ml vial INJ PRN (17:15)
[2018-01-16 17:30] LABS: HEMATOCRIT 53.3 % (42.0-52.0); HEMOGLOBIN 17.1 G/DL (14.2-18.0); MEAN CORPUSCULAR VOLUME 88 FL (80-99); PLATELET COUNT 289 K/UL (150-450); RED BLOOD COUNT 6.04 M/UL (4.70-6.10); RED CELL DISTRIBUTION WIDTH 12.1 % (11.6-14.8)
[2018-01-16 18:08] LABS: ALANINE AMINOTRANSFERASE 33 U/L (12-78); ALBUMIN 5.2 G/DL (3.4-5.0); ALBUMIN/GLOBULIN RATIO 1.2 (1.0-2.7); ALKALINE PHOSPHATASE 140 U/L (46-116); ANION GAP 29 mmol/L (5-15); ASPARTATE AMINO TRANSFERASE 21 U/L (15-37); BLOOD UREA NITROGEN 16 mg/dL (7-18); CALCIUM 10.1 MG/DL (8.5-10.1); CARBON DIOXIDE 10 MMOL/L (21-32); CHLORIDE 92 MMOL/L (98-107); CREATININE 1.4 MG/DL (0.55-1.30); POTASSIUM 4.8 MMOL/L (3.5-5.1); SODIUM 131 MMOL/L (136-145)
[2018-01-16 18:13] LABS: BILIRUBIN,DIRECT 0.3 MG/DL (0.0-0.3)
[2018-01-16] MEDS ORDERED: Sodium Bicarbonate 50ml Carp IV ONE (19:15)
--- NOTE | 2018-01-16 19:33 | Emergency Room Report ---
History of Present Illness General Chief Complaint: Abdominal Pain Source: Patient (RONALD STEVE) Present Illness HPI This is a 22-year-old male who presents to the ER for nausea vomiting abdominal pain for 4 hours. Associated symptoms include nausea and vomiting and generalized abdominal pain. Patient states that he is a type I diabetic and takes insulin but does not check his blood sugar. Patient states that he also has chest pain and some shortness of breath as well associated symptoms. Patient states that he has no modifying factors and denies any food-related component to his illnesses. Patient denies any fever, diarrhea, constipation, UTI symptoms, sore throat, body aches or chills. (RONALD STEVE) Allergies: Coded Allergies: No Known Allergies (Unverified , 03/27/14) Patient History Past Medical History: see triage record Past Surgical History: none Pertinent Family History: none Reviewed Nursing Documentation: PMH: Agreed; PSxH: Agreed (RONALD STEVE) Nursing Documentation-PMH Past Medical History: No History, Except For Hx Cardiac Problems: No Hx Asthma: Yes Hx Diabetes: Yes Hx Cancer: No Hx Gastrointestinal Problems: No Hx Neurological Problems: No (RONALD STEVE) Review of Systems All Other Systems: negative except mentioned in HPI (RONALD STEVE) Physical Exam Vital Signs Date Time Temp Pulse Resp B/P (MAP) Pulse Ox O2 Delivery O2 Flow Rate FiO2 01/16/18 16:50 97.5 65 20 109/76 100 Room Air 97.5 Sp02 EP Interpretation: reviewed, normal General Appearance: alert, GCS 15, moderate distress, other - actively vomiting Eyes: bilateral eye normal inspection, bilateral eye PERRL ENT: hearing grossly normal, normal pharynx, no angioedema, normal voice Neck: full range of motion, supple/symm/no masses Respiratory: chest non-tender, lungs clear, normal breath sounds, speaking full sentences Cardiovascular #1: regular rate, rhythm, no edema Gastrointestinal: normal bowel sounds, soft, non-distended, no rebound, tenderness - LUQ / LLQ Musculoskeletal: back normal, gait/station normal, normal range of motion, non- tender, calf tenderness Neurologic: alert, oriented x3, responsive, motor strength/tone normal, sensory intact, speech normal Psychiatric: judgement/insight normal, memory normal, mood/affect normal, no suicidal/homicidal ideation Skin: normal color, no rash, warm/dry, well hydrated (RONALD STEVE) Procedures Critical Care Time Critical Care Time i. I feel this is a highly complex case requiring extensive working including EKG/Rhythm strip, Xray/CT/US, Blood/urine lab work, repeat exams while in ED, and administration of strong opiates/narcotics for pain control, admission to hospital or close patient follow up. Total time: 30 min bedside evaluation and treatment excludes procedures (EKG). Reason for critical care: Abdominal pain, DKA Possible complications: hypotension, hypertension, NM, shock, arrhythmias, metabolic acidosis, end organ damage, respiratory failure. Interventions: Labs, IV fluids, pain meds, CT. ABG. Insulin drip and bolus. Antibiotics Course: Patient presenting with abdominal pain. Accu-Chek critically high. History of diabetes. Glucose greater than 500, bicarbonate low, pH 7.1. Insulin bolus and drip started. IV fluids continued. CT shows enteritis/ colitis. Significant leukocytosis. Broad spectrum abx given Consultations: nursing staff, EMS, family Performed by: Dr Abdullahi Tolerated well condition = critical j. because of unstable vital signs this patient had a condition that could potentially threaten life or limb. I feel this is a critical patient who required my full attention while patient was considered critical. Total Critical Care Time excluding procedures was greater than 35 minutes (Og Abdullahi MD) Medical Decision Making PA Attestation Dr. Abdullahi my supervising physician with whom patient management has been discussed with. (RONALD STEVE P.A.) Diagnostic Impression: Primary Impression: DKA (diabetic ketoacidoses) ER Course Pt. presents to the ED c/o abdominal pain. Ddx considered but are not limited to viral syndrome, DKA, PE, anxiety, appendicitis, diverticulitis, constipation, gastroenteritis, abdominal hernia, pancreatitis, cholecystitis, nephrolithiasis Vital signs: are WNL, pt. is afebrile H&PE are most consistent with DKA. ORDERS / ED INTERVENTIONS: My Orders Procedure Category Date Status Time Vital Signs CARE 01/16/18 Transmitted 16:59 Iv Access / Saline CARE 01/16/18 Transmitted Lock 16:59 Cbc W/ Differential LAB 01/16/18 Complete 16:59 CMP LAB 01/16/18 Complete 16:59 Lipase LAB 01/16/18 Complete 16:59 Urinalysis Reflex LAB 01/16/18 In Process Microscopy 16:59 Metoclopramide PHA 01/16/18 Complete (Reglan) 17:00 Ns 1000ml (Sodium PHA 01/16/18 Complete Chloride 1000ml Bag) 16:59 Saline 10ml Flush PHA 01/16/18 In Process (Saline 10ml Flush) 17:00 Morphine Sulfate PHA 01/16/18 Complete (Morphine Sulfate) 17:[address] 01/16/18 Taken W/Contrast 17:05 Iopamidol (Isovue-300 PHA 01/16/18 In Process 100ml) 17:15 Insulin Human Regular PHA 01/16/18 Complete (Novolin R) 17:30 Arterial Blood Gas LAB 01/16/18 Complete 17:28 Acetone/Ketone LAB 01/16/18 Logged 18:11 Insulin Human Regular PHA 01/16/18 In Process (Novolin R) 18:15 Ns 1000ml (Sodium PHA 01/16/18 Complete Chloride 1000ml Bag) 18:11 Sodium Bicarbonate PHA 01/16/18 Complete (Sodium Bicarbonate) 19:15 Ondansetron (Zofran) PHA 01/16/18 Verified 19:30 Patient was also given zosyn after CT report was returned showing colitis. DISPOSITION: At this time pt. is stable for admission to ICU and admitted to Panel, Dr. Vazquez Laboratory Tests Test 01/16/18 17:05 01/16/18 17:28 01/16/18 18:50 White Blood Count 23.0 K/UL (4.8-10.8) *H Red Blood Count 6.04 M/UL (4.70-6.10) Hemoglobin 17.1 G/DL (14.2-18.0) Hematocrit 53.3 % (42.0-52.0) H Mean Corpuscular Volume 88 FL (80-99) Mean Corpuscular Hemoglobin 28.3 PG (27.0-31.0) Mean Corpuscular Hemoglobin Concent 32.1 G/DL (32.0-36.0) Red Cell Distribution Width 12.1 % (11.6-14.8) Platelet Count 289 K/UL (150-450) Mean Platelet Volume 8.7 FL (6.5-10.1) Neutrophils (%) (Auto) % (45.0-75.0) Lymphocytes (%) (Auto) % (20.0-45.0) Monocytes (%) (Auto) % (1.0-10.0) Eosinophils (%) (Auto) % (0.0-3.0) Basophils (%) (Auto) % (0.0-2.0) Differential Total Cells Counted 100 Neutrophils % (Manual) 90 % (45-75) H Lymphocytes % (Manual) 7 % (20-45) L Monocytes % (Manual) 3 % (1-10) Eosinophils % (Manual) 0 % (0-3) Basophils % (Manual) 0 % (0-2) Band Neutrophils 0 % (0-8) Platelet Estimate Adequate Platelet Morphology Normal Red Blood Cell Morphology Normal Sodium Level 131 MMOL/L (136-145) L Potassium Level 4.8 MMOL/L (3.5-5.1) Chloride Level 92 MMOL/L (98-107) L Carbon Dioxide Level 10 MMOL/L (21-32) L Anion Gap 29 mmol/L (5-15) H Blood Urea Nitrogen 16 mg/dL (7-18) Creatinine 1.4 MG/DL (0.55-1.30) H Estimate Glomerular Filtration Rate > 60 mL/min (>60) Glucose Level 512 MG/DL (74-106) *H Calcium Level 10.1 MG/DL (8.5-10.1) Total Bilirubin 2.0 MG/DL (0.2-1.0) H Direct Bilirubin 0.3 MG/DL (0.0-0.3) Aspartate Amino Transferase (AST) 21 U/L (15-37) Alanine Aminotransferase (ALT) 33 U/L (12-78) Alkaline Phosphatase 140 U/L (46-116) H Total Protein 9.7 G/DL (6.4-8.2) H Albumin 5.2 G/DL (3.4-5.0) H Globulin 4.5 g/dL Albumin/Globulin Ratio 1.2 (1.0-2.7) Lipase 38 U/L (73-393) L Arterial Blood pH 7.170 (7.350-7.450) Arterial Blood Partial Pressure CO2 23.9 mmHg (35.0-45.0) *L Arterial Blood Partial Pressure O2 109.3 mmHg (75.0-100.0) H Arterial Blood HCO3 8.7 mmol/L (22.0-26.0) L Arterial Blood Oxygen Saturation 97.4 % (92.0-98.0) Arterial Blood Base Excess -17.7 Avel Test Positive Urine Color Pending Urine Appearance Pending Urine pH Pending Urine Specific Lynn Pending Urine Protein Pending Urine Glucose (UA) Pending Urine Ketones Pending Urine Occult Blood Pending Urine Nitrite Pending Urine Bilirubin Pending Urine Urobilinogen Pending Urine Leukocyte Esterase Pending (RONALD STEVE P.A.) CT/MRI/US Diagnostic Results CT/MRI/US Diagnostic Results : Imaging Test Ordered: CT Abd w/ IV Contrast Impression Mild diffuse bowel thickening which may be underdistention versus enteritis/ colitis. No appendicitis, SBO, or diverticulitis. No hydronephrosis or ureteral calculus. Unremarkable gallbladder and pancreas. (RONALD STEVE P.A.) Last Vital Signs Date Time Temp Pulse Resp B/P (MAP) Pulse Ox O2 Delivery O2 Flow Rate FiO2 01/16/18 17:23 97.5 01/16/18 17:00 20 109/76 100 Room Air 01/16/18 16:50 65 Status: improved (RONALD STEVE P.A.) Disposition: HOME, SELF-CARE Condition: Serious Signed Out To: Dr. Nolan (RONALD STEVE P.A.) Referrals: NOT CHOSEN [facility]/,REFERRING (PCP) RONALD STEVE January 16, 2018 19:33 Og Abdullahi MD January 16, 2018 21:47
[2018-01-16 19:40] LABS: APPEARANCE,URINE CLEAR; BILIRUBIN, URINE NEGATIVE (NEGATIVE); COLOR,URINE PALE YELLOW; GLUCOSE, URINE (UA) 4+ (NEGATIVE); KETONES,URINE 4+ (NEGATIVE); LEUKOCYTE ESTERASE ,URINE NEGATIVE (NEGATIVE); NITRITE,URINE NEGATIVE (NEGATIVE); PH,URINE 5 (4.5-8.0); PROTEIN,URINE 2+ (NEGATIVE); UROBILINOGEN,URINE NORMAL MG/DL (0.0-1.0)
[2018-01-16] MEDS ORDERED: Piperacillin/Tazobactam 3.375 GM in NS 55 ML IV ONE (20:00)
[2018-01-16] MEDS ORDERED: D5 1/2NS w/KCl 20mEq 1,000 ML IV SCH (21:30)
[2018-01-16 22:07] LABS: ANION GAP 18 mmol/L (5-15); BLOOD UREA NITROGEN 13 mg/dL (7-18); CALCIUM 8.6 MG/DL (8.5-10.1); CARBON DIOXIDE 19 MMOL/L (21-32); CHLORIDE 102 MMOL/L (98-107); CREATININE 1.3 MG/DL (0.55-1.30); POTASSIUM 3.8 MMOL/L (3.5-5.1); SODIUM 139 MMOL/L (136-145)
[2018-01-16 22:18] LABS: ALANINE AMINOTRANSFERASE 29 U/L (12-78); ALBUMIN 4.1 G/DL (3.4-5.0); ALBUMIN/GLOBULIN RATIO 1.1 (1.0-2.7); ALKALINE PHOSPHATASE 109 U/L (46-116); ASPARTATE AMINO TRANSFERASE 16 U/L (15-37); BILIRUBIN,TOTAL 1.5 MG/DL (0.2-1.0)
[2018-01-16 22:22] LABS: BILIRUBIN,DIRECT 0.2 MG/DL (0.0-0.3)
[2018-01-16] MEDS: Morphine Sulfate 4mg/ml Inj IVP PRN (23:17)
[2018-01-16] MEDS ORDERED: INSULIN HUMAN REGULAR IV SCH (23:45)
[2018-01-16] MEDS ORDERED: NS IV SCH (23:45)
[2018-01-17] VITALS (24 sets, daily range): BP systolic 90–143; BP diastolic 44–83
[2018-01-17] MEDS: Insulin Rate Change 1 Each MISC PRN ×8 (01:12→13:05)
[2018-01-17] MEDS: Morphine Sulfate 4mg/ml Inj IVP PRN (03:23)
--- NOTE | 2018-01-17 03:30 | Consultation ---
DATE OF CONSULTATION: 01/17/2018 CARDIOLOGY CONSULTATION CONSULTING PHYSICIAN: Sulaiman Rodriguez M.D. REQUESTING PHYSICIAN: Duong Vazquez M.D. REASON FOR CONSULTATION: Shock in the setting of DKA. HISTORY OF PRESENT ILLNESS: This 22-year-old male with insulin-requiring diabetes mellitus, presented to the emergency room with nausea, vomiting, and abdominal pain. His symptoms progressed throughout over the course of today. He has not been checking his blood sugar. He has had some shortness of breath and chest pain as well. He denies any diarrhea, fevers, or chills. In the emergency room, he was noted to have a white count of over 20,000. A CT scan of the abdomen revealed acute colitis. He was noted to have evidence of DKA. Hospitalization was initiated with ICU care. PAST MEDICAL HISTORY: Insulin-dependent diabetes mellitus and asthma. MEDICATIONS: Prior to admission, reviewed and reconciled. ALLERGIES: None. FAMILY HISTORY: Not remarkable. SOCIAL HISTORY: Denies smoking, alcohol, or substance abuse. REVIEW OF SYSTEMS: Otherwise unremarkable. PHYSICAL EXAMINATION: VITAL SIGNS: Blood pressure 99/53, pulse 97, respiratory rate 18, and afebrile. HEENT: Conjunctivae pink. Sclerae are anicteric. Oropharynx clear. Mucous membranes dry. NECK: Supple. No accessory muscle use. LUNGS: Clear. CARDIAC: Regular rhythm and rate. Normal S1 and S2 with no murmur, rub, or gallop. ABDOMEN: Soft, mildly tender and diffusely. No guarding or rebound. EXTREMITIES: Good pulses. No edema. Good capillary refill. NEUROLOGIC: Nonfocal. LABORATORY AND DIAGNOSTIC DATA: EKG sinus rhythm, left atrial enlargement, nonspecific ST-T wave changes. Sodium 131, potassium 4.8, bicarbonate 10, chloride 92, BUN 16, creatinine 1.4, and glucose 512. Ketone positive. Albumin 5.2. White count 23 and hemoglobin 17. ABG, 7.17, 24, and 109. IMPRESSION: 1. DKA. 2. Metabolic acidosis. 3. Early shock. 4. Acute colitis. 5. Probable sepsis. 6. Chest pain, not likely ischemic. Consider GI etiology versus pleural pericarditic. 7. Hypovolemia. 8. Dehydration. PLAN: 1. ICU care. 2. Volume resuscitation. 3. Replace electrolytes. 4. Check thyroid function. 5. Empiric antibiotics. 6. Monitor acid-based status. 7. Serial troponin. 8. Echocardiogram. 9. The patient is critical and guarded. Sulaiman Rodriguez M.D. DR: CHARLINE JOB#: [id number] CC:
[2018-01-17 04:30] LABS: BASOPHILS % (AUTO) 0.9 % (0.0-2.0); HEMATOCRIT 42.3 % (42.0-52.0); HEMOGLOBIN 15.1 G/DL (14.2-18.0); LYMPHOCYTES % (AUTO) 15.1 % (20.0-45.0); MEAN CORPUSCULAR VOLUME 86 FL (80-99); MONOCYTES % (AUTO) 6.8 % (1.0-10.0); NEUTROPHILS % (AUTO) 77.2 % (45.0-75.0); PLATELET COUNT 232 K/UL (150-450); RED BLOOD COUNT 4.92 M/UL (4.70-6.10); RED CELL DISTRIBUTION WIDTH 11.8 % (11.6-14.8); WHITE BLOOD COUNT 16.8 K/UL (4.8-10.8)
[2018-01-17 05:07] LABS: ANION GAP 15 mmol/L (5-15); BLOOD UREA NITROGEN 12 mg/dL (7-18); CALCIUM 8.7 MG/DL (8.5-10.1); CARBON DIOXIDE 21 MMOL/L (21-32); CHLORIDE 104 MMOL/L (98-107); POTASSIUM 3.8 MMOL/L (3.5-5.1); SODIUM 140 MMOL/L (136-145)
[2018-01-17 05:56] LABS: ALANINE AMINOTRANSFERASE 27 U/L (12-78); ALBUMIN 3.8 G/DL (3.4-5.0); ALKALINE PHOSPHATASE 95 U/L (46-116); ASPARTATE AMINO TRANSFERASE 13 U/L (15-37); BILIRUBIN,DIRECT 0.2 MG/DL (0.0-0.3); BILIRUBIN,TOTAL 1.2 MG/DL (0.2-1.0)
[2018-01-17] MEDS: Piperacillin/Tazobactam 3.375 GM in NS 110 ML IVPB SCH ×2 (06:01→15:33)
--- NOTE | 2018-01-17 08:47 | Diagnostic Imaging Report ---
Indication: Abdominal pain Technique: Continuous helical transaxial imaging of the abdomen and pelvis was obtained from the lung bases to the pubic symphysis during intravenous contrast administration. Coronal 2-D reformats were also obtained. Study obtained in a Siemens sensation [address] Automatic Exposure Control was utilized. Total Dose length Product (DLP): 453.[address] Dose Index Volume (CTDIvol): 9.77 mGy Comparison: None Findings: The lung bases are clear. The liver, gallbladder and spleen, both kidneys and adrenal glands appear unremarkable. No evidence of bowel obstruction. The appendix is normal. Bladder is unremarkable. IMPRESSION: No acute findings The CT scanner at [facility] is accredited by the [employer] and the scans are performed using dose optimization techniques as appropriate to a performed exam including Automatic Exposure control.
[2018-01-17] MEDS ORDERED: D5NS 1,000 ML IV SCH (09:00)
[2018-01-17 13:43] LABS: ANION GAP 11 mmol/L (5-15); BLOOD UREA NITROGEN 10 mg/dL (7-18); CALCIUM 8.2 MG/DL (8.5-10.1); CARBON DIOXIDE 21 MMOL/L (21-32); CHLORIDE 105 MMOL/L (98-107); CREATININE 0.9 MG/DL (0.55-1.30); PHOSPHORUS 1.8 MG/DL (2.5-4.9); POTASSIUM 3.3 MMOL/L (3.5-5.1); SODIUM 137 MMOL/L (136-145)
[2018-01-17] MEDS ORDERED: Potassium Phosphate 30 MM in NS 275 ML IV SCH (16:00)
[2018-01-17] MEDS ORDERED: NS w/KCl 20mEq 1,000 ML IV SCH (16:00)
[2018-01-17] MEDS: NovoLOG Insulin Flexpen SUBQ SCH ×2 (16:30→21:03)
--- NOTE | 2018-01-17 16:40 | Cardiology Report ---
APPROVED REPORT EXAM: Two-dimensional and M-mode echocardiogram with Doppler and color Doppler. INDICATION Hypertension/HCVD M-Mode DIMENSIONS IVSd1.0 (0.7-1.1cm)Left Atrium (MM)3.6 (1.6-4.0cm) LVDd4.0 (3.5-5.6cm)Aortic Root2.6 (2.0-3.7cm) PWd1.4 (0.7-1.1cm)Aortic Cusp Exc.1.8 (1.5-2.0cm) LVDs1.8 (2.5-4.0cm) PWs1.9 cm Normal left ventricular chamber size, systolic function and wall motion. Left ventricular ejection fraction estimated to be 60-65 %. Mild left ventricular hypertrophy by 2-D. No evidence of pericardial effusion. Left atrial size at upper limits of normal. Right cardiac chamber sizes are within normal limits. Focal aortic valve sclerosis with adequate cusp excursion. Moderately thickened mitral valve leaflets with normal excursion. Moderate mitral annulus and aortic root calcification. Pulmonic valve not well visualized. Normal tricuspid valve structure. IVC dilated at 2.4 cm with slight physiologic collapse suggestive of increased RA pressure. A color flow and spectral Doppler study was performed and revealed: Trace mitral regurgitation. Mitral inflow indicates normal left ventricular diastolic function. Mild tricuspid regurgitation. Tricuspid systolic velocities suggests peak right ventricular systolic pressure of 40 mmHg, consistent with mild pulmonary hypertension. Moderate pulmonic regurgitation present.
--- NOTE | 2018-01-17 16:44 | Cardiology Report ---
APPROVED REPORT EKG Measurement Heart [id number] Normal sinus rhythm Possible Left atrial enlargement st elevation in multiple lead likey early repol Abnormal ECG
[2018-01-17] MEDS ORDERED: NovoLOG Insulin Flexpen SUBQ SCH (16:50)
--- NOTE | 2018-01-17 17:00 | Consultation ---
DATE OF CONSULTATION: 01/17/2018 ENDOCRINOLOGY CONSULTATION CONSULTING PHYSICIAN: Ronnie Yuen M.D. REFERRING PHYSICIAN: Duong Vazquez M.D. REASON FOR CONSULTATION: Diabetic ketoacidosis. HISTORY OF PRESENT ILLNESS: The patient is a 22-year-old male with history of type 1 diabetes since the age of 18, on insulin Lantus 28 units daily and Humalog 8 units before each meal who is not taking his insulin for the past couple of days, came to the hospital with a white count of over 20,000. A CT of the abdomen revealed acute colitis and also the patient was in DKA and admitted to the ICU. I was called to manage insulin drip. MEDICATIONS: As above. ALLERGIES TO MEDICATIONS: None. FAMILY HISTORY: Noncontributory. SOCIAL HISTORY: No smoking, alcohol, or drug use. REVIEW OF SYSTEMS: Otherwise unremarkable. LABORATORY VALUES: WBC 23, hemoglobin 17, hematocrit 52, of platelet of 29,000. Sodium 140, potassium 3.8, chloride 104, bicarbonate 31, BUN 12, creatinine 1.0, glucose of 85. A1c of 9.6. PHYSICAL EXAMINATION: VITAL SIGNS: Blood pressure 102/62, heart rate 83, respiratory rate 17, and temperature of 98.5. HEENT: Pupils are equal and reactive to light. Sclerae are anicteric. NECK: No JVD. No thyromegaly. LUNGS: Clear. HEART: Regular rate and rhythm. ABDOMEN: Positive bowel sounds. Soft. EXTREMITIES: No clubbing, cyanosis, or edema. DIAGNOSES: 1. Diabetic ketoacidosis. 2. Colitis. PLAN: 1. Continue IV fluids. 2. We will change to D5 NS. 3. Monitor electrolytes and replete aggressively. 4. Continue IV insulin until the anion gap is closed. 5. I will follow the patient during hospital stay. Thank you, Dr. Vazquez, for the courtesy of this consultation. Ronnie Yuen M.D. DR: VIKAS/EDGAR JOB#: [id number] CC: SCOTT
[2018-01-17] MEDS ORDERED: Levemir Flexpen SUBQ SCH (18:00)
--- NOTE | 2018-01-17 18:45 | History and Physical Report ---
DATE OF ADMISSION: 01/16/2018 HISTORY OF PRESENT ILLNESS: This is a 22-year-old male with history of insulin-requiring diabetes mellitus. He came to the hospital with nausea, vomiting, abdominal pain. He received morphine in the ER. He had significant abdominal pain. Imaging studies showed evidence of colitis. He also was found to have diabetic ketoacidosis, has been admitted to the hospital. PAST MEDICAL HISTORY: Diabetes mellitus, asthma. HOME MEDICATIONS: The patient is unable to provide information at this point in time. ALLERGIES: None reported. FAMILY HISTORY: Noncontributory. REVIEW OF SYSTEMS: Denies any headaches, hematemesis, melena, or hematochezia. PHYSICAL EXAMINATION: GENERAL: Reveals a young male. HEENT: Unremarkable. LUNGS: Clear breath sounds bilaterally. ABDOMEN: Soft. EXTREMITIES: There is no edema. NEUROLOGIC: Nonfocal. LABORATORY DATA: White count 23,000 and now 16,000, otherwise normal. Chemistries are notable for initial glucose 512, last night was 165. His anion gap is now 15. Total bilirubin 1.5. Urinalysis is negative. Toxicology is positive for acetones. ABG shows pH 7.17, pCO2 23, pO2 109. In the mid imaging studies last night which showed CT of the abdomen was negative, been read by Radiology. IMPRESSION: 1. Diabetic ketoacidosis. 2. Leukocytosis. 3. Asthma. DISCUSSION: I would see no evidence of colitis. At this point, I will continue insulin drip. He has been seen by Cardiology. He is been given bicarbonate. He has also been seen by Endocrinology. Empiric antibiotics have been given, this I will continue. Intravenous fluids. We will check laboratories in a.m. We will follow carefully. Duong Vazquez M.D. DR: JULISSA JOB#: [id number] CC:
[2018-01-17] MEDS ORDERED: Tubing IV Secondary IV ONE (22:26)
--- NOTE | 2018-01-19 12:38 | Discharge Summary ---
Discharge Summary Hospital Course Date of Admission January 16, 2018 at 18:45 Date of Discharge January 17, 2018 at 22:27 Admitting Diagnosis DKA HPI Niels Weinstein is a 22 year old male who was admitted on January 16, 2018 at 18:45 for Ketoacidosis Hospital Course [id number] Discharge Discharge Disposition Patient left Erika Seth NP January 19, 2018 12:38
--- NOTE | 2018-01-20 01:15 | Discharge Summary 2 SIG ---
DATE OF ADMISSION: 01/16/2018 DATE OF DISCHARGE: 01/17/2018 CONSULTANTS: 1. Ronnie Yuen M.D. 2. Sulaiman Rodriguez M.D. BRIEF HOSPITAL COURSE: The patient is a 22-year-old male with history of insulin-requiring diabetes mellitus, who came to the hospital with nausea, vomiting, and abdominal pain. He has history of diabetes mellitus since age 18 and has been on Humalog and Lantus. He had not been taking his insulin for the past couple of days. On evaluation at ED, blood work showed leukocytosis, WBC was elevated to 23. Glucose level was 512, anion gap of 29, pH was 7.1, CO2 23, and bicarb 8.7. Acetone positive. He had an abdominal and pelvic CT that initially appeared with colitis. He was given antibiotic at ED. He was then admitted to intensive care unit where he was started on IV hydration and strict glucose monitoring. He was continued on insulin drip. Full treatment was not carried out as the patient left against medical advice. DISPOSITION: The patient left AMA. Duong Vazquez M.D. I have been assigned to dictate discharge summary on this account and I was not involved in the patient's management. Erika Rai N.P. DR: WHITNEY JOB#: [id number] CC:
== END 2018-01-17 22:27 | disposition left against medical advice (07) | DRG 639 ==
LOC: EMR 17:19 → EDBEDREQSVC 18:15 → EDBEDREQ 18:15 → ICU 18:45 → EDBEDREQ 19:59
DX: E11.10 Type 2 diabetes mellitus with ketoacidosis without coma (principal); J45.909 Unspecified asthma, uncomplicated; E86.0 Dehydration; Z79.4 Long term (current) use of insulin; Z91.14 Patient's other noncompliance with medication regimen; R07.9 Chest pain, unspecified; K52.9 Noninfective gastroenteritis and colitis, unspecified
CPT/HCPCS: 36415; 36600; 74177; 80048; 80053; 80076; 81003; 82009; 82248; 82803; 82962; 83036; 83605; 83690; 83735; 83880; 84100; 84443; 84484; 85007; 85025; 87081; 93005; 93306; 99291; J1815; J2405; J2765; S5561

== ENCOUNTER 2018-04-15 14:05 | Inpatient (IN) | payer OTHER ==
[~2018-04-15] VITALS: Ht 172.7 cm; Wt 58.5 kg
[2018-04-15] VITALS (7 sets, daily range): BP systolic 112–134; BP diastolic 57–75
--- NOTE | 2018-04-15 14:50 | Emergency Room Report ---
History of Present Illness General Chief Complaint: Abdominal Pain Source: Patient Present Illness HPI 22-year-old male presents ED for evaluation of abdominal pain and nausea. States he is a diabetic and was released from [facility] today and has not had access to his medication. Accu-Chek in the 300s today in triage. Pain is epigastric, dull, 7 out of 10, nonradiating. Denies chest pain or shortness of breath. Denies fevers or chills. No other aggravating relieving factors. Denies any other associated symptoms Allergies: Coded Allergies: No Known Allergies (Unverified , 03/27/14) Patient History Past Medical History: DM, asthma Social History: Denies: smoking, alcohol use, drug use Immunizations: UTD Reviewed Nursing Documentation: PMH: Agreed; PSxH: Agreed Nursing Documentation-PMH Past Medical History: No History, Except For Hx Cardiac Problems: No Hx Asthma: Yes Hx Diabetes: Yes - TYPE 1 Hx Cancer: No Hx Gastrointestinal Problems: Yes - NAUSEA, ABDOMINAL PAIN Hx Neurological Problems: No Review of Systems All Other Systems: negative except mentioned in HPI Physical Exam Vital Signs Date Time Temp Pulse Resp B/P (MAP) Pulse Ox O2 Delivery O2 Flow Rate FiO2 18 14:10 97.4 85 18 115/75 100 Room Air 97.3 Sp02 EP Interpretation: reviewed, normal General Appearance: no apparent distress, alert, GCS 15, non-toxic Head: normocephalic, atraumatic Eyes: bilateral eye normal inspection, bilateral eye PERRL ENT: hearing grossly normal, normal pharynx, no angioedema, normal voice Neck: full range of motion, supple/symm/no masses Respiratory: chest non-tender, lungs clear, normal breath sounds, speaking full sentences Cardiovascular #1: regular rate, rhythm, no edema Cardiovascular #2: 2+ carotid (R), 2+ carotid (L), 2+ radial (R), 2+ radial (L) , 2+ dorsalis pedis (R), 2+ dorsalis pedis (L) Gastrointestinal: normal bowel sounds, non tender, soft, non-distended, no guarding, no rebound Rectal: deferred Genitourinary: normal inspection, no CVA tenderness Musculoskeletal: back normal, gait/station normal, normal range of motion, non- tender Neurologic: alert, oriented x3, responsive, motor strength/tone normal, sensory intact, speech normal Psychiatric: judgement/insight normal, memory normal, mood/affect normal, no suicidal/homicidal ideation Reflexes: 3+ bicep (R), 3+ bicep (L), 3+ tricep (R), 3+ tricep (L), 3+ knee (R) , 3+ knee (L) Skin: normal color, no rash, warm/dry, well hydrated Lymphatic: no adenopathy Procedures Critical Care Time Critical Care Time i. I feel this is a highly complex case requiring extensive working including EKG/Rhythm strip, Xray/CT/US, Blood/urine lab work, repeat exams while in ED, and administration of strong opiates/narcotics for pain control, admission to hospital or close patient follow up. Total time: 30 min bedside evaluation and treatment excludes procedures (EKG). Reason for critical care: DKA Possible complications: hypotension, hypertension, SC, shock, arrhythmias, metabolic acidosis, end organ damage, respiratory failure. Interventions: labs, ivfs, ABG. insulin bolus, insulin drip Course: Patient presenting with nausea, high Accu-Chek. History of diabetes uncontrolled. Glucose in the 300s, high anion gap, low bicarbonate. ABG shows acidosis. Continued IV fluids. Given insulin bolus and insulin drip started Consultations: nursing staff, EMS, family Performed by: Dr Abdullahi Tolerated well condition = critical j. because of unstable vital signs this patient had a condition that could potentially threaten life or limb. I feel this is a critical patient who required my full attention while patient was considered critical. Total Critical Care Time excluding procedures was greater than 35 minutes Medical Decision Making Diagnostic Impression: Primary Impression: Diabetic ketoacidosis Qualified Codes: E10.10 - Type 1 diabetes mellitus with ketoacidosis without coma ER Course Hospital Course 22 yo M presents with nausea, accucheck high Differential diagnoses include: ETOH/drug ingestion, sepsis, DKA Clinical course Patient placed on stretcher. On traffic monitor specialist. After initial history and physical I ordered labs, 2 L of IV fluids, EKG Labs-glucose greater than 300, anion gap elevated, bicarbonate low, K 5.4, Utox +THC EKG - early repolarization ABG shows acidosis Given 2 L of IV fluids, additional IV hydration given given insulin bolus, started on insulin drip Case discussed with Dr. Ferraro and he agreed to accept the patient to his service for further care and support i. I feel this is a highly complex case requiring extensive working including EKG/Rhythm strip, Xray/CT/US, Blood/urine lab work, repeat exams while in ED, and administration of strong opiates/narcotics for pain control, admission to hospital or close patient follow up. j. because of unstable vital signs this patient had a condition that could potentially threaten life or limb. I feel this is a critical patient who required my full attention while patient was considered critical. Total Critical Care Time excluding procedures was greater than 35 minutes diagnosis - DKA admitted to ICU in critical condition Labs Test 04/15/18 14:40 04/15/18 14:51 04/15/18 16:25 White Blood Count 15.0 K/UL (4.8-10.8) Red Blood Count 5.85 M/UL (4.70-6.10) Hemoglobin 16.3 G/DL (14.2-18.0) Hematocrit 50.4 % (42.0-52.0) Mean Corpuscular Volume 86 FL (80-99) Mean Corpuscular Hemoglobin 27.8 PG (27.0-31.0) Mean Corpuscular Hemoglobin Concent 32.3 G/DL (32.0-36.0) Red Cell Distribution Width 11.8 % (11.6-14.8) Platelet Count 294 K/UL (150-450) Mean Platelet Volume 10.2 FL (6.5-10.1) Neutrophils (%) (Auto) % (45.0-75.0) Lymphocytes (%) (Auto) % (20.0-45.0) Monocytes (%) (Auto) % (1.0-10.0) Eosinophils (%) (Auto) % (0.0-3.0) Basophils (%) (Auto) % (0.0-2.0) Differential Total Cells Counted 100 Neutrophils % (Manual) 89 % (45-75) Lymphocytes % (Manual) 8 % (20-45) Monocytes % (Manual) 3 % (1-10) Eosinophils % (Manual) 0 % (0-3) Basophils % (Manual) 0 % (0-2) Band Neutrophils 0 % (0-8) Platelet Estimate Adequate Platelet Morphology Normal Red Blood Cell Morphology Normal Sodium Level 132 MMOL/L (136-145) Potassium Level 5.4 MMOL/L (3.5-5.1) Chloride Level 95 MMOL/L (98-107) Carbon Dioxide Level 14 MMOL/L (21-32) Anion Gap 23 mmol/L (5-15) Blood Urea Nitrogen 13 mg/dL (7-18) Creatinine 1.2 MG/DL (0.55-1.30) Estimat Glomerular Filtration Rate > 60 mL/min (>60) Glucose Level 363 MG/DL (74-106) Calcium Level 9.5 MG/DL (8.5-10.1) Magnesium Level 1.8 MG/DL (1.8-2.4) Total Bilirubin 1.6 MG/DL (0.2-1.0) Direct Bilirubin 0.5 MG/DL (0.0-0.3) Aspartate Amino Transf (AST/SGOT) 25 U/L (15-37) Alanine Aminotransferase (ALT/SGPT) 17 U/L (12-78) Alkaline Phosphatase 140 U/L (46-116) Total Protein 8.8 G/DL (6.4-8.2) Albumin 4.7 G/DL (3.4-5.0) Globulin 4.1 g/dL Albumin/Globulin Ratio 1.1 (1.0-2.7) Acetone Level Positive-moderate (NEGATIVE) Urine Color Pale yellow Urine Appearance Clear Urine pH 5 (4.5-8.0) Urine Specific [place] 1.025 (1.005-1.035) Urine Protein 2+ (NEGATIVE) Urine Glucose (UA) 4+ (NEGATIVE) Urine Ketones 4+ (NEGATIVE) Urine Occult Blood Negative (NEGATIVE) Urine Nitrite Negative (NEGATIVE) Urine Bilirubin Negative (NEGATIVE) Urine Urobilinogen Normal MG/DL (0.0-1.0) Urine Leukocyte Esterase Negative (NEGATIVE) Urine RBC 0-2 /HPF (0 - 0) Urine WBC 2-4 /HPF (0 - 0) Urine Squamous Epithelial Cells Few /LPF (NONE/OCC) Urine Amorphous Sediment Few /LPF (NONE) Urine Bacteria Few /HPF (NONE) Urine Mucus Moderate /LPF (NONE/OCC) Urine Opiates Screen Negative (NEGATIVE) Urine Barbiturates Screen Negative (NEGATIVE) Phencyclidine (PCP) Screen Negative (NEGATIVE) Urine Amphetamines Screen Negative (NEGATIVE) Urine Benzodiazepines Screen Negative (NEGATIVE) Urine Cocaine Screen Negative (NEGATIVE) Urine Marijuana (THC) Screen Positive (NEGATIVE) Arterial Blood pH 7.235 (7.350-7.450) Arterial Blood Partial Pressure CO2 25.4 mmHg (35.0-45.0) Arterial Blood Partial Pressure O2 74.6 mmHg (75.0-100.0) Arterial Blood HCO3 10.5 mmol/L (22.0-26.0) Arterial Blood Oxygen Saturation -93.7 % (92.0-98.0) Arterial Blood Base Excess -15.0 Avel Test Positive EKG Diagnostic Results Rate: normal Rhythm: NSR ST Segments: other - early repolarization ASA given to the pt in ED: No Rhythm Strip Diag. Results EP Interpretation: yes Rhythm: NSR, no PVC's, no ectopy Last Vital Signs Date Time Temp Pulse Resp B/P (MAP) Pulse Ox O2 Delivery O2 Flow Rate FiO2 04/15/18 14:10 97.4 85 18 115/75 100 Room Air 97.3 Status: improved Disposition: LEFT W/OUT BEING SEEN Condition: Critical Og Abdullahi MD Apr 15, 2018 14:50
[2018-04-15 15:10] LABS: ANION GAP 23 mmol/L (5-15); BLOOD UREA NITROGEN 13 mg/dL (7-18); CALCIUM 9.5 MG/DL (8.5-10.1); CARBON DIOXIDE 14 MMOL/L (21-32); CHLORIDE 95 MMOL/L (98-107); CREATININE 1.2 MG/DL (0.55-1.30); POTASSIUM 5.4 MMOL/L (3.5-5.1); SODIUM 132 MMOL/L (136-145)
[2018-04-15 15:20] LABS: APPEARANCE,URINE CLEAR; BILIRUBIN, URINE NEGATIVE (NEGATIVE); COLOR,URINE PALE YELLOW; GLUCOSE, URINE (UA) 4+ (NEGATIVE); KETONES,URINE 4+ (NEGATIVE); LEUKOCYTE ESTERASE ,URINE NEGATIVE (NEGATIVE); NITRITE,URINE NEGATIVE (NEGATIVE); PH,URINE 5 (4.5-8.0); PROTEIN,URINE 2+ (NEGATIVE); UROBILINOGEN,URINE NORMAL MG/DL (0.0-1.0)
[2018-04-15 15:21] LABS: ALANINE AMINOTRANSFERASE 17 U/L (12-78); ALBUMIN 4.7 G/DL (3.4-5.0); ALBUMIN/GLOBULIN RATIO 1.1 (1.0-2.7); ALKALINE PHOSPHATASE 140 U/L (46-116); ASPARTATE AMINO TRANSFERASE 25 U/L (15-37); BILIRUBIN,TOTAL 1.6 MG/DL (0.2-1.0)
[2018-04-15 15:22] LABS: HEMATOCRIT 50.4 % (42.0-52.0); HEMOGLOBIN 16.3 G/DL (14.2-18.0); MEAN CORPUSCULAR VOLUME 86 FL (80-99); PLATELET COUNT 294 K/UL (150-450); RED BLOOD COUNT 5.85 M/UL (4.70-6.10); RED CELL DISTRIBUTION WIDTH 11.8 % (11.6-14.8)
[2018-04-15 15:31] LABS: BILIRUBIN,DIRECT 0.5 MG/DL (0.0-0.3)
[2018-04-15] MEDS ORDERED: Insulin Human Regular 100units/ml 3ml IV ONE (16:30)
[2018-04-15] MEDS ORDERED: Potassium Chloride 10 MEQ in D5 1/2NS 1,000 ML IV SCH (18:15)
[2018-04-15] MEDS ORDERED: D5 1/2NS 1,000 ML IV SCH (18:15)
[2018-04-15 18:49] LABS: ANION GAP 21 mmol/L (5-15); BLOOD UREA NITROGEN 10 mg/dL (7-18); CALCIUM 8.2 MG/DL (8.5-10.1); CARBON DIOXIDE 12 MMOL/L (21-32); CHLORIDE 100 MMOL/L (98-107); POTASSIUM 4.1 MMOL/L (3.5-5.1); SODIUM 133 MMOL/L (136-145)
[2018-04-15 19:00] LABS: ALANINE AMINOTRANSFERASE 21 U/L (12-78); ALBUMIN 3.7 G/DL (3.4-5.0); ALBUMIN/GLOBULIN RATIO 1.1 (1.0-2.7); ALKALINE PHOSPHATASE 115 U/L (46-116); ASPARTATE AMINO TRANSFERASE 20 U/L (15-37); BILIRUBIN,TOTAL 1.2 MG/DL (0.2-1.0)
[2018-04-15 19:12] LABS: BILIRUBIN,DIRECT 0.2 MG/DL (0.0-0.3)
[2018-04-15] MEDS ORDERED: Insulin Human Regular 100units/ml 3ml IV PRN ×2 (20:30)
[2018-04-15] MEDS ORDERED: Zolpidem 5mg tab ORAL PRN (20:45)
[2018-04-15] MEDS ORDERED: Milk of Magnesia 30ml Ud ORAL PRN (20:45)
[2018-04-15] MEDS ORDERED: Morphine Sulfate 2mg/ml Inj(IV/IM USE ONLY) IVP PRN (20:45)
[2018-04-15] MEDS: Morphine Sulfate 4mg/ml Inj (IV USE ONLY) IVP PRN (21:06)
[2018-04-15] MEDS: D5 1/2NS 1,000 ML IV SCH (21:10)
[2018-04-15] MEDS: Insulin Rate Change 1 Each MISC PRN ×2 (22:17→23:04)
[2018-04-16] VITALS (23 sets, daily range): BP systolic 102–141; BP diastolic 51–92
[2018-04-16] MEDS: Insulin Rate Change 1 Each MISC PRN ×3 (00:01→06:57)
[2018-04-16] MEDS: D5 1/2NS 1,000 ML IV SCH ×3 (03:20→14:18)
[2018-04-16] MEDS: Morphine Sulfate 4mg/ml Inj (IV USE ONLY) IVP PRN ×4 (03:20→17:45)
[2018-04-16 05:49] LABS: BASOPHILS % (AUTO) 0.6 % (0.0-2.0); EOSINOPHILS % (AUTO) 0.5 % (0.0-3.0); HEMATOCRIT 40.6 % (42.0-52.0); HEMOGLOBIN 13.5 G/DL (14.2-18.0); LYMPHOCYTES % (AUTO) 25.3 % (20.0-45.0); MEAN CORPUSCULAR VOLUME 85 FL (80-99); MONOCYTES % (AUTO) 8.2 % (1.0-10.0); NEUTROPHILS % (AUTO) 65.4 % (45.0-75.0); PLATELET COUNT 229 K/UL (150-450); RED CELL DISTRIBUTION WIDTH 11.5 % (11.6-14.8); WHITE BLOOD COUNT 10.2 K/UL (4.8-10.8)
[2018-04-16 05:52] LABS: ANION GAP 10 mmol/L (5-15); BLOOD UREA NITROGEN 6 mg/dL (7-18); CALCIUM 8.4 MG/DL (8.5-10.1); CARBON DIOXIDE 22 MMOL/L (21-32); CHLORIDE 104 MMOL/L (98-107); CREATININE 0.9 MG/DL (0.55-1.30); POTASSIUM 3.5 MMOL/L (3.5-5.1); SODIUM 136 MMOL/L (136-145)
[2018-04-16] MEDS ORDERED: Levemir Flexpen SUBQ SCH ×2 (11:00→18:00)
--- NOTE | 2018-04-16 14:19 | Cardiology Report ---
APPROVED REPORT EKG Measurement Heart [id number] Normal sinus rhythm Minimal voltage criteria for LVH, may be normal variant Early repolarization Borderline ECG
--- NOTE | 2018-04-16 14:45 | History & Physical ---
History and Physical History & Physicial 22-year-old male presents ED with DKA. States he is a diabetic and was released from correction today and has not had access to his medication and was only given 6 units of insulin daily. patient is on basaglar and humulog currently improved with hydration and insulin drip Allergies: No Known Allergies (Unverified , 03/27/14) Past Medical History: DM, asthma Social History: Denies: smoking, alcohol use, drug use Reviewed of systems: abdominal pain and nausea resolved physical WDWN NAD clear breath sounds bilaterally without rhonchi or wheeze [id number] without MRG NABS nontender no HSM no CCE nonfocal Labs Test 04/15/18 14:40 04/15/18 14:51 04/15/18 16:25 04/15/18 18:15 White Blood Count 15.0 K/UL (4.8-10.8) Red Blood Count 5.85 M/UL (4.70-6.10) Hemoglobin 16.3 G/DL (14.2-18.0) Hematocrit 50.4 % (42.0-52.0) Mean Corpuscular Volume 86 FL (80-99) Mean Corpuscular Hemoglobin 27.8 PG (27.0-31.0) Mean Corpuscular Hemoglobin Concent 32.3 G/DL (32.0-36.0) Red Cell Distribution Width 11.8 % (11.6-14.8) Platelet Count 294 K/UL (150-450) Mean Platelet Volume 10.2 FL (6.5-10.1) Neutrophils (%) (Auto) % (45.0-75.0) Lymphocytes (%) (Auto) % (20.0-45.0) Monocytes (%) (Auto) % (1.0-10.0) Eosinophils (%) (Auto) % (0.0-3.0) Basophils (%) (Auto) % (0.0-2.0) Differential Total Cells Counted 100 Neutrophils % (Manual) 89 % (45-75) Lymphocytes % (Manual) 8 % (20-45) Monocytes % (Manual) 3 % (1-10) Eosinophils % (Manual) 0 % (0-3) Basophils % (Manual) 0 % (0-2) Band Neutrophils 0 % (0-8) Platelet Estimate Adequate Platelet Morphology Normal Red Blood Cell Morphology Normal Sodium Level 132 MMOL/L (136-145) 133 MMOL/L (136-145) Potassium Level 5.4 MMOL/L (3.5-5.1) 4.1 MMOL/L (3.5-5.1) Chloride Level 95 MMOL/L (98-107) 100 MMOL/L (98-107) Carbon Dioxide Level 14 MMOL/L (21-32) 12 MMOL/L (21-32) Anion Gap 23 mmol/L (5-15) 21 mmol/L (5-15) Blood Urea Nitrogen 13 mg/dL (7-18) 10 mg/dL (7-18) Creatinine 1.2 MG/DL (0.55-1.30) 1.0 MG/DL (0.55-1.30) Estimat Glomerular Filtration Rate > 60 mL/min (>60) > 60 mL/min (>60) Glucose Level 363 MG/DL (74-106) 187 MG/DL (74-106) Calcium Level 9.5 MG/DL (8.5-10.1) 8.2 MG/DL (8.5-10.1) Magnesium Level 1.8 MG/DL (1.8-2.4) Total Bilirubin 1.6 MG/DL (0.2-1.0) 1.2 MG/DL (0.2-1.0) Direct Bilirubin 0.5 MG/DL (0.0-0.3) 0.2 MG/DL (0.0-0.3) Aspartate Amino Transf (AST/SGOT) 25 U/L (15-37) 20 U/L (15-37) Alanine Aminotransferase (ALT/SGPT) 17 U/L (12-78) 21 U/L (12-78) Alkaline Phosphatase 140 U/L (46-116) 115 U/L (46-116) Total Protein 8.8 G/DL (6.4-8.2) 7.1 G/DL (6.4-8.2) Albumin 4.7 G/DL (3.4-5.0) 3.7 G/DL (3.4-5.0) Globulin 4.1 g/dL 3.4 g/dL Albumin/Globulin Ratio 1.1 (1.0-2.7) 1.1 (1.0-2.7) Acetone Level Positive-moderate (NEGATIVE) Urine Color Pale yellow Urine Appearance Clear Urine pH 5 (4.5-8.0) Urine Specific [place] 1.025 (1.005-1.035) Urine Protein 2+ (NEGATIVE) Urine Glucose (UA) 4+ (NEGATIVE) Urine Ketones 4+ (NEGATIVE) Urine Occult Blood Negative (NEGATIVE) Urine Nitrite Negative (NEGATIVE) Urine Bilirubin Negative (NEGATIVE) Urine Urobilinogen Normal MG/DL (0.0-1.0) Urine Leukocyte Esterase Negative (NEGATIVE) Urine RBC 0-2 /HPF (0 - 0) Urine WBC 2-4 /HPF (0 - 0) Urine Squamous Epithelial Cells Few /LPF (NONE/OCC) Urine Amorphous Sediment Few /LPF (NONE) Urine Bacteria Few /HPF (NONE) Urine Mucus Moderate /LPF (NONE/OCC) Urine Opiates Screen Negative (NEGATIVE) Urine Barbiturates Screen Negative (NEGATIVE) Phencyclidine (PCP) Screen Negative (NEGATIVE) Urine Amphetamines Screen Negative (NEGATIVE) Urine Benzodiazepines Screen Negative (NEGATIVE) Urine Cocaine Screen Negative (NEGATIVE) Urine Marijuana (THC) Screen Positive (NEGATIVE) Arterial Blood pH 7.235 (7.350-7.450) Arterial Blood Partial Pressure CO2 25.4 mmHg (35.0-45.0) Arterial Blood Partial Pressure O2 74.6 mmHg (75.0-100.0) Arterial Blood HCO3 10.5 mmol/L (22.0-26.0) Arterial Blood Oxygen Saturation -93.7 % (92.0-98.0) Arterial Blood Base Excess -15.0 Avel Test Positive Test 04/16/18 05:10 White Blood Count 10.2 K/UL (4.8-10.8) Red Blood Count 4.80 M/UL (4.70-6.10) Hemoglobin 13.5 G/DL (14.2-18.0) Hematocrit 40.6 % (42.0-52.0) Mean Corpuscular Volume 85 FL (80-99) Mean Corpuscular Hemoglobin 28.1 PG (27.0-31.0) Mean Corpuscular Hemoglobin Concent 33.2 G/DL (32.0-36.0) Red Cell Distribution Width 11.5 % (11.6-14.8) Platelet Count 229 K/UL (150-450) Mean Platelet Volume 8.1 FL (6.5-10.1) Neutrophils (%) (Auto) 65.4 % (45.0-75.0) Lymphocytes (%) (Auto) 25.3 % (20.0-45.0) Monocytes (%) (Auto) 8.2 % (1.0-10.0) Eosinophils (%) (Auto) 0.5 % (0.0-3.0) Basophils (%) (Auto) 0.6 % (0.0-2.0) Sodium Level 136 MMOL/L (136-145) Potassium Level 3.5 MMOL/L (3.5-5.1) Chloride Level 104 MMOL/L (98-107) Carbon Dioxide Level 22 MMOL/L (21-32) Anion Gap 10 mmol/L (5-15) Blood Urea Nitrogen 6 mg/dL (7-18) Creatinine 0.9 MG/DL (0.55-1.30) Estimat Glomerular Filtration Rate > 60 mL/min (>60) Glucose Level 131 MG/DL (74-106) Hemoglobin A1c 11.1 % (4.3-6.0) Calcium Level 8.4 MG/DL (8.5-10.1) Phosphorus Level 3.4 MG/DL (2.5-4.9) IMPRESSION DKA due to lack of meds acidemia- resolved abdominal pain due to the above PLAN dc insulin drip resume long acting insulin and sliding scale resume diet follow up labs and dc in am impression, plan, and exam edited and reviewed in detail care discussed with Benito Gamino MD Apr 16, 2018 14:45
[2018-04-16] MEDS: NovoLOG Insulin Flexpen SUBQ SCH ×2 (16:42→21:00)
[2018-04-16] MEDS ORDERED: Zolpidem 5mg tab ORAL PRN (21:00)
[2018-04-16] MEDS ORDERED: Morphine Sulfate 4mg/ml Inj (IV USE ONLY) IVP PRN (23:45)
[2018-04-16] MEDS ORDERED: Morphine Sulfate 2mg/ml Inj(IV/IM USE ONLY) IVP PRN (23:45)
[2018-04-17] VITALS: BP 117/67
[2018-04-17 04:00] VITALS: BP 122/64
[2018-04-17] MEDS ORDERED: NovoLOG Insulin Flexpen SUBQ SCH (06:30)
[2018-04-17 07:28] LABS: BASOPHILS % (AUTO) 0.7 % (0.0-2.0); EOSINOPHILS % (AUTO) 1.3 % (0.0-3.0); HEMATOCRIT 39.4 % (42.0-52.0); HEMOGLOBIN 13.4 G/DL (14.2-18.0); LYMPHOCYTES % (AUTO) 22.9 % (20.0-45.0); MEAN CORPUSCULAR VOLUME 84 FL (80-99); MONOCYTES % (AUTO) 7.2 % (1.0-10.0); PLATELET COUNT 217 K/UL (150-450); RED BLOOD COUNT 4.67 M/UL (4.70-6.10); RED CELL DISTRIBUTION WIDTH 11.2 % (11.6-14.8)
[2018-04-17 07:52] LABS: ALANINE AMINOTRANSFERASE 21 U/L (12-78); ALKALINE PHOSPHATASE 90 U/L (46-116); ANION GAP 8 mmol/L (5-15); ASPARTATE AMINO TRANSFERASE 20 U/L (15-37); BLOOD UREA NITROGEN 5 mg/dL (7-18); CALCIUM 8.7 MG/DL (8.5-10.1); CARBON DIOXIDE 26 MMOL/L (21-32); CHLORIDE 106 MMOL/L (98-107); CREATININE 0.7 MG/DL (0.55-1.30); POTASSIUM 3.3 MMOL/L (3.5-5.1); SODIUM 140 MMOL/L (136-145)
[2018-04-17 08:00] VITALS: BP 119/68
[2018-04-17] MEDS ORDERED: Levemir Flexpen SUBQ SCH (09:00)
--- NOTE | 2018-04-17 09:33 | General Progress Note ---
Assessment/Plan Assessment/Plan IMPRESSION DKA due to lack of meds acidemia- resolved abdominal pain due to the above PLAN tolerating diet resume insulin RX and maintain compliance follow up after discharge impression, plan, and exam edited and reviewed in detail care discussed with RN Subjective Allergies: Coded Allergies: No Known Allergies (Unverified , 03/27/14) Subjective stable and wants to dc home tolerating po Objective Last 24 Hour Vital Signs Date Time Temp Pulse Resp B/P (MAP) Pulse Ox O2 Delivery O2 Flow Rate FiO2 04/17/18 09:00 Room Air 04/17/18 08:00 66 04/17/18 08:00 97.9 74 20 119/68 (85) 100 97.9 04/17/18 04:00 55 04/17/18 04:00 98.2 70 18 122/64 (83) 98 98.2 04/17/18 00:00 97.7 75 16 117/67 (84) 99 97.7 04/17/18 00:00 82 04/16/18 22:00 97.9 72 18 114/66 (82) 99 97.9 04/16/18 21:00 70 15 117/56 (76) 99 04/16/18 20:00 Room Air 04/16/18 20:00 98.7 91 15 123/63 (83) 98 98.7 04/16/18 19:27 83 04/16/18 19:00 91 15 141/92 (108) 98 04/16/18 18:00 84 18 117/71 (86) 96 04/16/18 17:00 77 15 137/72 (93) 100 04/16/18 16:00 Room Air 04/16/18 16:00 65 04/16/18 16:00 74 14 121/63 (82) 97 04/16/18 15:00 67 13 130/63 (85) 100 04/16/18 14:00 74 13 114/51 (72) 100 04/16/18 13:00 68 13 107/56 (73) 99 04/16/18 12:00 80 04/16/18 12:00 97.6 71 13 136/71 (92) 100 97.6 04/16/18 12:00 Room Air 04/16/18 11:00 59 14 104/55 (71) 99 04/16/18 10:00 65 13 130/67 (88) 99 Intake and Output 04/16/18 04/17/18 19:00 07:00 Intake Total 2752.4 ml 0 ml Output Total 1950 ml 700 ml Balance 802.4 ml -700 ml Intake Oral 800 ml 0 ml IV Total 1952.4 ml Output Urine Total 1950 ml 700 ml # Voids 1 Laboratory Tests 04/17/18 05:45: White Blood Count 8.0, Red Blood Count 4.67L, Hemoglobin 13.4L, Hematocrit 39.4L , Mean Corpuscular Volume 84, Mean Corpuscular Hemoglobin 28.8, Mean Corpuscular Hemoglobin Concent 34.1, Red Cell Distribution Width 11.2L, Platelet Count 217, Mean Platelet Volume 8.3, Neutrophils (%) (Auto) 68.0, Lymphocytes (%) (Auto) 22.9, Monocytes (%) (Auto) 7.2, Eosinophils (%) (Auto) 1.3, Basophils (%) (Auto) 0.7, Sodium Level 140, Potassium Level 3.3L, Chloride Level 106, Carbon Dioxide Level 26, Anion Gap 8, Blood Urea Nitrogen 5L, Creatinine 0.7, Estimat Glomerular Filtration Rate > 60, Glucose Level 165H, Calcium Level 8.7, Magnesium Level 1.7L, Total Bilirubin 1.0, Aspartate Amino Transf (AST/SGOT) 20, Alanine Aminotransferase (ALT/SGPT) 21, Alkaline Phosphatase 90, Total Protein 5.9L, Albumin 3.0L, Globulin 2.9, Albumin/ Globulin Ratio 1.0 Height (Feet): 5 Height (Inches): 8.00 Weight (Pounds): 129 Objective WDWN NAD clear breath sounds bilaterally without rhonchi or wheeze [id number] without MRG NABS nontender no HSM no CCE nonfocal Benito Ferraro MD Apr 17, 2018 09:33
[2018-04-17] MEDS ORDERED: D5 1/2NS 1000ml IV ONE (10:14)
[2018-04-17] MEDS ORDERED: Milk of Magnesia 30ml Ud ORAL PRN (20:45)
[2018-04-17] MEDS ORDERED: Zolpidem 5mg tab ORAL PRN (21:00)
--- NOTE | 2018-04-19 09:18 | Discharge Summary ---
Discharge Summary Discharge Summary _ DATE OF ADMISSION: 04/15/2018 DATE OF DISCHARGE: 04/17/2018 REASON FOR ADMISSION: 22 years old male with past medical history of diabetes mellitus, substance- abuse, asthma, presented to emergency department with abdominal pain and nausea. Patient was just discharged from intermediate earlier the same day and had no access to his medications. Accu-Chek in triage was above 300. Pain described as epigastric, dull, 7 out of 10, nonradiating. No chest pain or shortness of breath. No fevers, no chills. Vital signs were stable. No fever . Laboratory workup revealed elevated blood sugar 363, anion gap elevated -23 , bicarbonate low -14 . Sodium 132, potassium 5.4. Urine toxicology screen was positive for marijuana. WBC-15, stable hemoglobin and hematocrit. EKG revealed sinus rhythm with early repolarization. ABG revealed acidemia. BUN 13, creatinine 1.2 . Urinalysis with s no evidence of UTI. In emergency department patient was given 2 L of IV fluids and started on additional hydration. Insulin bolus was given and patient started on insulin drip . Patient subsequently was transferred to ICU with diagnosis of diabetic ketoacidosis HOSPITAL COURSE: Patient admitted to ICU. Patient was on IV hydration and insulin drip as per protocol. Blood sugar ,renal parameters and electrolytes were closely monitored. e Electrolytes wer5e corrected as needed. When anion gap closed, insulin drip was discontinued , and patient started on long acting insulin and pre-meal insulin. Hemoglobin A1c - 11.1 , clearly not at goal. Patient was counseled on compliance with medication regimen. Abdominal pain was likely secondary to diabetic ketoacidosis . Pain management was addressed , and pain was controlled. Abdominal pain resolved prior to discharge Initial leukocytosis was likely reactive , resolved next day. No fevers, no evidence of infection. Blood sugar stabilized. Stable renal parameters, stable electrolytes ,except potassium 3.3. Potassium was replaced Patient was stable for discharge home FINAL DIAGNOSES: Diabetes ketoacidosis (due to lack of medications) Diabetes mellitus out of control (hemoglobin A1c 11.1) Abdominal pain ,secondary to DKA,- resolved Acidemia,- resolved DISCHARGE MEDICATIONS: See Medication Reconciliation list. DISCHARGE INSTRUCTIONS: Patient was discharged home. Patient was encouraged on compliance with medication regimen. Patient was encouraged follow-up regularly with his primary care provider to optimize anti-glycemic regimen. I have been assigned to dictate discharge summary for this account. I was not involved in the patient's management. Ayesha Perry NP Apr 19, 2018 09:18
== END 2018-04-17 10:15 | disposition home or self-care (01) | DRG 420 ==
LOC: EMR 14:30 → ICU 17:23 → EDBEDREQ 17:35 → 2E 04-16 23:05
DX: E10.10 Type 1 diabetes mellitus with ketoacidosis without coma (principal); D64.9 Anemia, unspecified; R10.9 Unspecified abdominal pain; Z79.4 Long term (current) use of insulin
CPT/HCPCS: 36415; 36600; 80048; 80053; 80307; 81003; 82009; 82248; 82803; 82962; 83036; 83735; 84100; 85007; 85025; 87081; 93005; J1815; J2405; J8499; S5561

== ENCOUNTER 2018-05-25 00:14 | Inpatient (IN) | payer OTHER ==
[2018-05-25] VITALS (9 sets, daily range): BP systolic 104–128; BP diastolic 36–69
[~2018-05-25] VITALS: Ht 170.2 cm; Wt 59.4 kg
[2018-05-25 01:13] LABS: BASOPHILS % (AUTO) 0.6 % (0.0-2.0); EOSINOPHILS % (AUTO) 0.1 % (0.0-3.0); HEMATOCRIT 54.3 % (42.0-52.0); LYMPHOCYTES % (AUTO) 13.5 % (20.0-45.0); MEAN CORPUSCULAR VOLUME 85 FL (80-99); MONOCYTES % (AUTO) 5.8 % (1.0-10.0); NEUTROPHILS % (AUTO) 80.1 % (45.0-75.0); PLATELET COUNT 260 K/UL (150-450); RED CELL DISTRIBUTION WIDTH 11.4 % (11.6-14.8); WHITE BLOOD COUNT 13.8 K/UL (4.8-10.8)
[2018-05-25] MEDS ORDERED: Pantoprazole Inj IVP ONE (01:15)
[2018-05-25] MEDS ORDERED: Haloperidol 5mg/ml Inj IM ONE (01:30)
[2018-05-25 01:34] LABS: ALANINE AMINOTRANSFERASE 28 U/L (12-78); ALBUMIN 4.6 G/DL (3.4-5.0); ALBUMIN/GLOBULIN RATIO 1.1 (1.0-2.7); ALKALINE PHOSPHATASE 145 U/L (46-116); ANION GAP 23 mmol/L (5-15); ASPARTATE AMINO TRANSFERASE 23 U/L (15-37); BILIRUBIN,TOTAL 1.4 MG/DL (0.2-1.0); BLOOD UREA NITROGEN 9 mg/dL (7-18); CALCIUM 9.8 MG/DL (8.5-10.1); CARBON DIOXIDE 16 MMOL/L (21-32); CHLORIDE 98 MMOL/L (98-107); CREATININE 1.3 MG/DL (0.55-1.30); POTASSIUM 3.5 MMOL/L (3.5-5.1); SODIUM 137 MMOL/L (136-145)
[2018-05-25 01:38] LABS: BILIRUBIN,DIRECT 0.2 MG/DL (0.0-0.3)
[2018-05-25] MEDS ORDERED: D5 1/2NS w/KCl 20mEq 1,000 ML IV SCH (02:00)
--- NOTE | 2018-05-25 04:32 | Emergency Room Report ---
History of Present Illness General Chief Complaint: Vomiting Present Illness HPI Patient is a 22-year-old male who presented after increased abdominal pain. Patient gradual onset of symptoms. He reports having severe epigastric pain associated with nausea and vomiting. He reports having prior history of type 1 diabetes. He denies any fever. Patient not been having any diarrhea. He denies any hematemesis or bloody stools. The patient reportedly had been seen at a hospital in [place] and subsequently was discharge. The patient denies any other locations of pain. Allergies: Coded Allergies: No Known Allergies (Unverified , 03/27/14) Patient History Past Medical History: see triage record Reviewed Nursing Documentation: PMH: Agreed; PSxH: Agreed Nursing Documentation-PMH Hx Cardiac Problems: No Hx Asthma: Yes Hx Diabetes: Yes - TYPE 1 Hx Cancer: No Hx Gastrointestinal Problems: Yes - ABDOMINAL PAIN Hx Neurological Problems: No Review of Systems All Other Systems: negative except mentioned in HPI Physical Exam Vital Signs Date Time Temp Pulse Resp B/P (MAP) Pulse Ox O2 Delivery O2 Flow Rate FiO2 05/25/18 00:30 98.3 115 16 124/36 99 Room Air 98.2 Sp02 EP Interpretation: reviewed, normal General Appearance: normal inspection, well appearing, no apparent distress, alert, Chronically Ill Head: atraumatic ENT: normal ENT inspection, hearing grossly normal, normal voice Neck: normal inspection, full range of motion, supple, no bony tend Respiratory: normal inspection, lungs clear, normal breath sounds, no respiratory distress, no retraction, no wheezing Cardiovascular #1: regular rate, rhythm, no edema Gastrointestinal: soft, no guarding, no hernia, tenderness - epigastric Genitourinary: no CVA tenderness Musculoskeletal: normal inspection, back normal, normal range of motion Neurologic: normal inspection, alert, oriented x3, responsive, speech normal Psychiatric: normal inspection, judgement/insight normal, mood/affect normal Skin: normal inspection, normal color, no rash Procedures Critical Care Time Critical Care Time Patient had a critical medical condition which untreated could potentially result in life or limb threatening injury. Total critical care time excluding procedures approximately 45 minutes. Medical Decision Making Diagnostic Impression: Primary Impression: Diabetic ketoacidosis ER Course Patient presented for abdominal pain. Differential diagnoses included ischemic bowel, appendicitis, perforated viscus, abdominal aortic aneurysm, inferior myocardial infarction, viral gastroenteritis Because of complexity of patient's case laboratory testing and imaging studies were ordered. The patient was noted to have initially low blood sugar. The patient was started on IV dextrose. The patient was noted to have evidence of anion gap acidosis which is likely diabetic ketoacidosis despite the patient's normal blood sugar. The patient was noted to have the elevated serum ketones. The patient was started on IV fluids. A repeat basic metabolic panel sodium worsening acidosis with improving blood sugar. Patient was sent was started on insulin drip. Dr. Fredy Dunaway was contacted for inpatient management due to panel physician Labs Test 05/25/18 00:40 White Blood Count 13.8 K/UL (4.8-10.8) Red Blood Count 6.40 M/UL (4.70-6.10) Hemoglobin 18.0 G/DL (14.2-18.0) Hematocrit 54.3 % (42.0-52.0) Mean Corpuscular Volume 85 FL (80-99) Mean Corpuscular Hemoglobin 28.2 PG (27.0-31.0) Mean Corpuscular Hemoglobin Concent 33.2 G/DL (32.0-36.0) Red Cell Distribution Width 11.4 % (11.6-14.8) Platelet Count 260 K/UL (150-450) Mean Platelet Volume 9.2 FL (6.5-10.1) Neutrophils (%) (Auto) 80.1 % (45.0-75.0) Lymphocytes (%) (Auto) 13.5 % (20.0-45.0) Monocytes (%) (Auto) 5.8 % (1.0-10.0) Eosinophils (%) (Auto) 0.1 % (0.0-3.0) Basophils (%) (Auto) 0.6 % (0.0-2.0) Sodium Level 137 MMOL/L (136-145) Potassium Level 3.5 MMOL/L (3.5-5.1) Chloride Level 98 MMOL/L (98-107) Carbon Dioxide Level 16 MMOL/L (21-32) Anion Gap 23 mmol/L (5-15) Blood Urea Nitrogen 9 mg/dL (7-18) Creatinine 1.3 MG/DL (0.55-1.30) Estimat Glomerular Filtration Rate > 60 mL/min (>60) Glucose Level 84 MG/DL (74-106) Calcium Level 9.8 MG/DL (8.5-10.1) Total Bilirubin 1.4 MG/DL (0.2-1.0) Direct Bilirubin 0.2 MG/DL (0.0-0.3) Aspartate Amino Transf (AST/SGOT) 23 U/L (15-37) Alanine Aminotransferase (ALT/SGPT) 28 U/L (12-78) Alkaline Phosphatase 145 U/L (46-116) Troponin I 0.000 ng/mL (0.000-0.056) Total Protein 8.9 G/DL (6.4-8.2) Albumin 4.6 G/DL (3.4-5.0) Globulin 4.3 g/dL Albumin/Globulin Ratio 1.1 (1.0-2.7) Lipase 45 U/L (73-393) Acetone Level Positive-moderate (NEGATIVE) Last Vital Signs Date Time Temp Pulse Resp B/P (MAP) Pulse Ox O2 Delivery O2 Flow Rate FiO2 05/25/18 00:30 98.3 115 16 124/36 99 Room Air 98.2 Status: improved Disposition: ADMITTED INPATIENT Condition: Serious Referrals: [facility],REFERRING (PCP) William Nelson MD May 25, 2018 04:32
[2018-05-25] MEDS ORDERED: Morphine Sulfate 4mg/ml Inj (IV USE ONLY) IVP PRN (05:15)
[2018-05-25] MEDS ORDERED: Albuterol/Ipratropium 3ml neb HHN PRN (05:15)
[2018-05-25] MEDS ORDERED: Miralax 17gm pkt ORAL PRN (05:15)
[2018-05-25] MEDS ORDERED: LORazepam Inj 2mg/ml 1ml IV PRN (05:15)
[2018-05-25] MEDS ORDERED: [UNRECOGNIZED DRUG - REMARK] MISC PRN (05:15)
[2018-05-25] MEDS ORDERED: Nitroglycerin Subl 0.4mg tab SL PRN (05:15)
[2018-05-25] MEDS ORDERED: Insulin Human Regular 100units/ml 3ml IV PRN ×3 (05:15→20:00)
[2018-05-25 05:43] LABS: ANION GAP 23 mmol/L (5-15); BLOOD UREA NITROGEN 7 mg/dL (7-18); CALCIUM 8.2 MG/DL (8.5-10.1); CARBON DIOXIDE 12 MMOL/L (21-32); CHLORIDE 101 MMOL/L (98-107); SODIUM 136 MMOL/L (136-145)
[2018-05-25 05:52] LABS: ALANINE AMINOTRANSFERASE 27 U/L (12-78); ALBUMIN 3.4 G/DL (3.4-5.0); ALKALINE PHOSPHATASE 110 U/L (46-116); ASPARTATE AMINO TRANSFERASE 20 U/L (15-37); BILIRUBIN,TOTAL 1.2 MG/DL (0.2-1.0)
[2018-05-25 05:58] LABS: BILIRUBIN,DIRECT 0.2 MG/DL (0.0-0.3)
[2018-05-25] MEDS: Insulin Human Regular 100units/ml 3ml IV PRN ×2 (08:22→11:18)
[2018-05-25] MEDS: Heparin 5000 units/ml inj SUBQ SCH ×2 (09:00→20:36)
[2018-05-25] MEDS: Insulin Rate Change 1 Each MISC PRN ×11 (09:14→19:00)
--- NOTE | 2018-05-25 09:56 | Pulmonolgy Critical Care Note ---
Critical Care - Asmt/Plan Problems: (1) Diabetic ketoacidosis Respiratory: monitor respiratory rate, adjust FIO2, CXR Cardiac: continue to monitor HR/BP Renal: F/U I&O, increase IV fluid Gastrointestinal: start feedings Endocrine: monitor blood sugar Hematologic: monitor H/H Neurologic: PRN Ativan Prophylaxis: Protonix, Heparin Notes Reviewed: technology lead, renal Discussed with: consultants, behavioral health case managersupply chain logistics manager - Objective Last 24 Hour Vital Signs Date Time Temp Pulse Resp B/P (MAP) Pulse Ox O2 Delivery O2 Flow Rate FiO2 05/25/18 08:00 110 05/25/18 08:00 Room Air 05/25/18 05:45 95 05/25/18 05:45 Room Air 05/25/18 05:40 98.5 99 16 112/60 97 Room Air 98.5 05/25/18 05:00 98.5 99 16 112/60 97 Room Air 98.5 05/25/18 04:00 107 18 112/57 95 Room Air 05/25/18 03:00 95 18 117/62 97 Room Air 05/25/18 01:30 98.2 115 16 124/36 99 Room Air 98.2 05/25/18 00:30 98.3 115 16 124/36 99 Room Air 98.2 Status: awake Condition: critical HEENT: atraumatic Lungs: clear Heart: HR/BP stable, HR/BP unstable Abdomen: non-tender, feeding tube Extremities: no C/C/E Decubiti: location Micro: Microbiology Date/Time Source Procedure Growth Status 05/25/18 05:30 Rectum Received Accucheck: 153 Critical Care - Subjective ROS Limited/Unobtainable: No ICU Day: 1 Interval Events: 22 years old male with hx of DM presented to Er with abdominal pain and nausea, pt was diagnosed to have DKA and admitted to ICU with insulin drip. Fluids: NS Drips: Insuline drip I&O: Intake and Output 05/24/18 05/25/18 19:00 07:00 Intake Total 3000 ml Output Total 500 ml Balance 2500 ml Intake Oral 0 ml IV Total 3000 ml Output Urine Total 500 ml # Voids 1 Labs: Laboratory Tests Test 05/25/18 00:40 05/25/18 05:00 White Blood Count 13.8 K/UL (4.8-10.8) H Red Blood Count 6.40 M/UL (4.70-6.10) H Hemoglobin 18.0 G/DL (14.2-18.0) Hematocrit 54.3 % (42.0-52.0) H Mean Corpuscular Volume 85 FL (80-99) Mean Corpuscular Hemoglobin 28.2 PG (27.0-31.0) Mean Corpuscular Hemoglobin Concent 33.2 G/DL (32.0-36.0) Red Cell Distribution Width 11.4 % (11.6-14.8) L Platelet Count 260 K/UL (150-450) Mean Platelet Volume 9.2 FL (6.5-10.1) Neutrophils (%) (Auto) 80.1 % (45.0-75.0) H Lymphocytes (%) (Auto) 13.5 % (20.0-45.0) L Monocytes (%) (Auto) 5.8 % (1.0-10.0) Eosinophils (%) (Auto) 0.1 % (0.0-3.0) Basophils (%) (Auto) 0.6 % (0.0-2.0) Sodium Level 137 MMOL/L (136-145) 136 MMOL/L (136-145) Potassium Level 3.5 MMOL/L (3.5-5.1) 4.0 MMOL/L (3.5-5.1) Chloride Level 98 MMOL/L (98-107) 101 MMOL/L (98-107) Carbon Dioxide Level 16 MMOL/L (21-32) L 12 MMOL/L (21-32) L Anion Gap 23 mmol/L (5-15) H 23 mmol/L (5-15) H Blood Urea Nitrogen 9 mg/dL (7-18) 7 mg/dL (7-18) Creatinine 1.3 MG/DL (0.55-1.30) 1.0 MG/DL (0.55-1.30) Estimat Glomerular Filtration Rate > 60 mL/min (>60) > 60 mL/min (>60) Glucose Level 84 MG/DL (74-106) 203 MG/DL (74-106) #H Calcium Level 9.8 MG/DL (8.5-10.1) 8.2 MG/DL (8.5-10.1) L Total Bilirubin 1.4 MG/DL (0.2-1.0) H 1.2 MG/DL (0.2-1.0) H Direct Bilirubin 0.2 MG/DL (0.0-0.3) 0.2 MG/DL (0.0-0.3) Aspartate Amino Transf (AST/SGOT) 23 U/L (15-37) 20 U/L (15-37) Alanine Aminotransferase (ALT/SGPT) 28 U/L (12-78) 27 U/L (12-78) Alkaline Phosphatase 145 U/L (46-116) H 110 U/L (46-116) Troponin I 0.000 ng/mL (0.000-0.056) Total Protein 8.9 G/DL (6.4-8.2) H 6.8 G/DL (6.4-8.2) Albumin 4.6 G/DL (3.4-5.0) 3.4 G/DL (3.4-5.0) Globulin 4.3 g/dL 3.4 g/dL Albumin/Globulin Ratio 1.1 (1.0-2.7) 1.0 (1.0-2.7) Lipase 45 U/L (73-393) L Acetone Level Positive-moderate (NEGATIVE) Tawana Casey MD May 25, 2018 09:56
[2018-05-25] MEDS: D5NS 1,000 ML IV SCH ×2 (10:04→17:09)
--- NOTE | 2018-05-25 10:56 | Diagnostic Imaging Report ---
Indication: Shortness of breath Technique: One view of the chest Comparison: 10/28/2017 Findings: Lungs and pleural spaces are clear. Heart size is normal . No significant change Impression: No acute process
--- NOTE | 2018-05-25 14:50 | GI Initial Consult Note ---
History of Present Illness General Date patient seen: May 25, 2018 Time patient seen: 11:00 Reason for Hospitalization: Vomiting Referring physician: SARATH PRADO Reason for Consultation: VOMITING Present Illness HPI 22 year old male patient whom was recently discharged from a hospital in [place], [place] [facility] [place] symptoms of [place]. Patient states he was diagnosed 3 years ago with type one diabetes. Pt seen, awake A& Ox4 NAD with no active s/sx of N/V/D or constipation at this time. Labs reviewed show elevated anion gap and mild leukocytosis. No history of colonoscopy / endoscopy. Home Meds Active Scripts Albuterol Sulfate* (ALBUTEROL SULFATE MDI*) 8.5 Gm Hfa.aer.ad, 2 PUFF INH Q4H PRN for For Cough, #1 EA Prov:GREGORY ROMAN M.D. 08/15/15 Insulin Glargine (LANTUS) 100 Unit/1 Ml Insuln.pen, 28 UNITS SUBQ BEDTIME, #1 VIAL 0 Refills Prov:ZAY CASSIDY P.A. 08/04/15 Insulin Lispro (HUMALOG) 100 Unit/1 Ml Cartridge, 8 UNITS SUBQ TID, #1 VIAL 0 Refills Prov:ZAY CASSIDY P.A. 08/04/15 Med list reviewed/reconciled: Yes Allergies: Coded Allergies: No Known Allergies (Unverified , 03/27/14) Patient History History Provided By: Patient, Medical Record PMH Narrative see HPI Pertinent Family History: none Social History: Denies: smoking, alcohol use, drug use, other Review of Systems All Other Systems: negative except mentioned in HPI Physical Exam Vital Signs Date Time Temp Pulse Resp B/P (MAP) Pulse Ox O2 Delivery O2 Flow Rate FiO2 05/25/18 00:30 98.3 115 16 124/36 99 Room Air 98.2 Sp02 EP Interpretation: reviewed, normal Labs Laboratory Tests Test 05/25/18 00:40 05/25/18 05:00 White Blood Count 13.8 K/UL (4.8-10.8) H Red Blood Count 6.40 M/UL (4.70-6.10) H Hemoglobin 18.0 G/DL (14.2-18.0) Hematocrit 54.3 % (42.0-52.0) H Mean Corpuscular Volume 85 FL (80-99) Mean Corpuscular Hemoglobin 28.2 PG (27.0-31.0) Mean Corpuscular Hemoglobin Concent 33.2 G/DL (32.0-36.0) Red Cell Distribution Width 11.4 % (11.6-14.8) L Platelet Count 260 K/UL (150-450) Mean Platelet Volume 9.2 FL (6.5-10.1) Neutrophils (%) (Auto) 80.1 % (45.0-75.0) H Lymphocytes (%) (Auto) 13.5 % (20.0-45.0) L Monocytes (%) (Auto) 5.8 % (1.0-10.0) Eosinophils (%) (Auto) 0.1 % (0.0-3.0) Basophils (%) (Auto) 0.6 % (0.0-2.0) Sodium Level 137 MMOL/L (136-145) 136 MMOL/L (136-145) Potassium Level 3.5 MMOL/L (3.5-5.1) 4.0 MMOL/L (3.5-5.1) Chloride Level 98 MMOL/L (98-107) 101 MMOL/L (98-107) Carbon Dioxide Level 16 MMOL/L (21-32) L 12 MMOL/L (21-32) L Anion Gap 23 mmol/L (5-15) H 23 mmol/L (5-15) H Blood Urea Nitrogen 9 mg/dL (7-18) 7 mg/dL (7-18) Creatinine 1.3 MG/DL (0.55-1.30) 1.0 MG/DL (0.55-1.30) Estimat Glomerular Filtration Rate > 60 mL/min (>60) > 60 mL/min (>60) Glucose Level 84 MG/DL (74-106) 203 MG/DL (74-106) #H Calcium Level 9.8 MG/DL (8.5-10.1) 8.2 MG/DL (8.5-10.1) L Total Bilirubin 1.4 MG/DL (0.2-1.0) H 1.2 MG/DL (0.2-1.0) H Direct Bilirubin 0.2 MG/DL (0.0-0.3) 0.2 MG/DL (0.0-0.3) Aspartate Amino Transf (AST/SGOT) 23 U/L (15-37) 20 U/L (15-37) Alanine Aminotransferase (ALT/SGPT) 28 U/L (12-78) 27 U/L (12-78) Alkaline Phosphatase 145 U/L (46-116) H 110 U/L (46-116) Troponin I 0.000 ng/mL (0.000-0.056) Total Protein 8.9 G/DL (6.4-8.2) H 6.8 G/DL (6.4-8.2) Albumin 4.6 G/DL (3.4-5.0) 3.4 G/DL (3.4-5.0) Globulin 4.3 g/dL 3.4 g/dL Albumin/Globulin Ratio 1.1 (1.0-2.7) 1.0 (1.0-2.7) Lipase 45 U/L (73-393) L Acetone Level Positive-moderate (NEGATIVE) Phosphorus Level 2.5 MG/DL (2.5-4.9) General Appearance: well appearing, no apparent distress, alert Head: normocephalic EENT: PERRL/EOMI, normal ENT inspection Neck: supple Respiratory: normal breath sounds, no respiratory distress Cardiovascular: normal rate Gastrointestinal: normal inspection, non tender, soft, normal bowel sounds, non -distended Rectal: deferred Genitourinary: deferred Musculoskeletal: normal inspection, back normal Neurologic: normal inspection, alert, oriented x3, responsive Psychiatric: normal inspection, judgement/insight normal, memory normal Skin: normal inspection, normal color, no rash, warm/dry, palpation normal, well hydrated Lymphatic: normal inspection, no adenopathy Current Medications Current Medications Medications (Trade) Dose Ordered Sig/Arianne Route PRN Reason Start Time Stop Time Status Last Admin Dose Admin Acetaminophen (Tylenol) 650 mg Q4H PRN ORAL Fever 05/25/18 05:15 06/24/18 05:14 Albuterol/ Ipratropium (Albuterol/ Ipratropium) 3 ml Q4H PRN HHN Shortness of Breath 05/25/18 05:15 05/30/18 05:14 Dextrose (Dextrose 50%) PRN PRN IV HYPOGLYCEMIA 05/25/18 05:15 06/24/18 05:14 Dextrose/Sodium Chloride 1,000 ml @ 150 mls/hr Q6H40M IV 05/25/18 10:00 06/24/18 09:59 05/25/18 10:04 Heparin Sodium (Porcine) (Heparin 5000 units/ml) 5,000 units EVERY 12 HOURS SUBQ 05/25/18 09:00 06/24/18 08:59 05/25/18 09:00 Insulin Human Regular (NovoLIN R) 5 units PRN PRN IV BS 200-299 05/25/18 05:15 06/24/18 05:14 05/25/18 11:18 Insulin Human Regular (NovoLIN R) 10 units PRN PRN IV BS=>300 05/25/18 05:15 06/24/18 05:14 Insulin Human Regular 100 units/ Sodium Chloride 101 ml @ 0 mls/hr Q24H IV 05/25/18 06:30 06/24/18 06:29 05/25/18 08:00 Miscellaneous Medication (Insulin Rate Change) 1 ea PRN PRN MISC To Patient Comfort 05/25/18 05:15 06/24/18 05:14 05/25/18 14:14 Nitroglycerin (Ntg) 0.4 mg Q5M PRN SL Prn Chest Pain 05/25/18 05:15 06/24/18 05:14 Ondansetron HCl (Zofran) 4 mg Q6H PRN IVP Nausea & Vomiting 05/25/18 05:15 06/24/18 05:14 GI: Plan Problems: (1) Diarrhea (2) Dehydration (3) Diabetic ketoacidosis (4) DKA (diabetic ketoacidoses) (5) Vomiting (6) Nausea, vomiting, and diarrhea Plan symptomatic treatment at this time N/V seem to have resolved >> zofran prn, reglan for persistent vomiting had previous diarrhea, now resolved. DM management PO/IV hydration + electrolyte correction fu labs Discussed with Dr. Nicole. Thank you for this patient referral, we will follow. The patient was seen and examined at bedside and all new and available data was reviewed in the patients chart. I agree with the above findings, impression and plan. (Patient seen earlier today. Signature stamp does not reflect patient encounter time.). - MD Ivelisse Aguilera Anh-Phil SALES TRAINING COORDINATOR May 25, 2018 14:50
--- NOTE | 2018-05-25 19:07 | General Progress Note ---
Assessment/Plan Problem List: (1) Diabetic ketoacidosis ICD Codes: E13.10 - Other specified diabetes mellitus with ketoacidosis without coma SNOMED: 497363112 (2) Diabetes mellitus ICD Codes: E11.9 - Type 2 diabetes mellitus without complications SNOMED: 12317336 (3) Nausea, vomiting, and diarrhea ICD Codes: R11.2 - Nausea with vomiting, unspecified; R19.7 - Diarrhea, unspecified SNOMED: 8231118 Assessment/Plan stat BMP, Mg, Phos now RN will call me with results will convert insulin gtt to sub Q if AG is closed Subjective Allergies: Coded Allergies: No Known Allergies (Unverified , 03/27/14) All Systems: reviewed and negative except above Subjective DKA due to non compliance with Lantus 28 units feeling better and he is anxious to go home by tomorrow Objective Last 24 Hour Vital Signs Date Time Temp Pulse Resp B/P (MAP) Pulse Ox O2 Delivery O2 Flow Rate FiO2 05/25/18 16:00 Room Air 05/25/18 16:00 85 05/25/18 12:00 104 05/25/18 12:00 Room Air 05/25/18 08:00 110 05/25/18 08:00 Room Air 05/25/18 05:45 95 05/25/18 05:45 Room Air 05/25/18 05:40 98.5 99 16 112/60 97 Room Air 98.5 05/25/18 05:00 98.5 99 16 112/60 97 Room Air 98.5 05/25/18 04:00 107 18 112/57 95 Room Air 05/25/18 03:00 95 18 117/62 97 Room Air 05/25/18 01:30 98.2 115 16 124/36 99 Room Air 98.2 05/25/18 00:30 98.3 115 16 124/36 99 Room Air 98.2 Intake and Output 05/24/18 05/25/18 19:00 07:00 Intake Total 3000 ml Output Total 500 ml Balance 2500 ml Intake Oral 0 ml IV Total 3000 ml Output Urine Total 500 ml # Voids 1 Laboratory Tests 05/25/18 00:40: White Blood Count 13.8H, Red Blood Count 6.40H, Hemoglobin 18.0, Hematocrit 54.3H, Mean Corpuscular Volume 85, Mean Corpuscular Hemoglobin 28.2, Mean Corpuscular Hemoglobin Concent 33.2, Red Cell Distribution Width 11.4L, Platelet Count 260, Mean Platelet Volume 9.2, Neutrophils (%) (Auto) 80.1H, Lymphocytes (%) (Auto) 13.5L, Monocytes (%) (Auto) 5.8, Eosinophils (%) (Auto) 0.1, Basophils (%) (Auto) 0.6, Sodium Level 137, Potassium Level 3.5, Chloride Level 98, Carbon Dioxide Level 16L, Anion Gap 23H, Blood Urea Nitrogen 9, Creatinine 1.3, Estimat Glomerular Filtration Rate > 60, Glucose Level 84, Calcium Level 9.8, Total Bilirubin 1.4H, Direct Bilirubin 0.2, Aspartate Amino Transf (AST/SGOT) 23, Alanine Aminotransferase (ALT/SGPT) 28, Alkaline Phosphatase 145H, Troponin I 0.000, Total Protein 8.9H, Albumin 4.6, Globulin 4.3, Albumin/Globulin Ratio 1.1, Lipase 45L, Acetone Level Positive-moderate 05/25/18 05:00: Sodium Level 136, Potassium Level 4.0, Chloride Level 101, Carbon Dioxide Level 12L, Anion Gap 23H, Blood Urea Nitrogen 7, Creatinine 1.0, Estimat Glomerular Filtration Rate > 60, Glucose Level 203#H, Calcium Level 8.2L, Total Bilirubin 1.2H, Direct Bilirubin 0.2, Aspartate Amino Transf (AST/SGOT) 20, Alanine Aminotransferase (ALT/SGPT) 27, Alkaline Phosphatase 110, Total Protein 6.8, Albumin 3.4, Globulin 3.4, Albumin/Globulin Ratio 1.0, Phosphorus Level 2.5 Height (Feet): 5 Height (Inches): 7.00 Weight (Pounds): 131 General Appearance: no apparent distress Neck: normal alignment Cardiovascular: normal rate Respiratory/Chest: lungs clear Abdomen: normal bowel sounds Edema: no edema noted Arm (L), no edema noted Arm (R), no edema noted Leg (L), no edema noted Leg (R), no edema noted Pedal (L), no edema noted Pedal (R), no edema noted Generalized Objective Current Medications Medications (Trade) Dose Ordered Sig/Arianne Route PRN Reason Start Time Stop Time Status Last Admin Dose Admin Acetaminophen (Tylenol) 650 mg Q4H PRN ORAL Fever 05/25/18 05:15 06/24/18 05:14 Albuterol/ Ipratropium (Albuterol/ Ipratropium) 3 ml Q4H PRN HHN Shortness of Breath 05/25/18 05:15 05/30/18 05:14 Dextrose (Dextrose 50%) PRN PRN IV HYPOGLYCEMIA 05/25/18 05:15 06/24/18 05:14 Dextrose/Sodium Chloride 1,000 ml @ 150 mls/hr Q6H40M IV 05/25/18 10:00 06/24/18 09:59 05/25/18 17:09 Heparin Sodium (Porcine) (Heparin 5000 units/ml) 5,000 units EVERY 12 HOURS SUBQ 05/25/18 09:00 06/24/18 08:59 05/25/18 09:00 Insulin Human Regular (NovoLIN R) 5 units PRN PRN IV BS 200-299 05/25/18 05:15 06/24/18 05:14 05/25/18 11:18 Insulin Human Regular (NovoLIN R) 10 units PRN PRN IV BS=>300 05/25/18 05:15 06/24/18 05:14 Insulin Human Regular 100 units/ Sodium Chloride 101 ml @ 0 mls/hr Q24H IV 05/25/18 06:30 06/24/18 06:29 05/25/18 08:00 Miscellaneous Medication (Insulin Rate Change) 1 ea PRN PRN MISC To Patient Comfort 05/25/18 05:15 06/24/18 05:14 05/25/18 19:00 Nitroglycerin (Ntg) 0.4 mg Q5M PRN SL Prn Chest Pain 05/25/18 05:15 06/24/18 05:14 Ondansetron HCl (Zofran) 4 mg Q6H PRN IVP Nausea & Vomiting 05/25/18 05:15 06/24/18 05:14 Item Value Date Time Bedside Blood Glucose 85 mg/dl 05/25/18 1813 Bedside Blood Glucose 129 mg/dl H 05/25/18 1414 Bedside Blood Glucose 104 mg/dl 05/25/18 1005 Bedside Blood Glucose 207 mg/dl H 05/25/18 0600 Bedside Blood Glucose 77 mg/dl 05/25/18 0051 Ronnie Yuen MD May 25, 2018 19:07
[2018-05-25] MEDS ORDERED: Insulin Rate Change 1 Each MISC PRN (20:00)
[2018-05-25] MEDS ORDERED: Pantoprazole Inj IVP SCH (21:00)
[2018-05-25 21:03] LABS: ANION GAP 13 mmol/L (5-15); BLOOD UREA NITROGEN 4 mg/dL (7-18); CALCIUM 8.2 MG/DL (8.5-10.1); CARBON DIOXIDE 21 MMOL/L (21-32); CHLORIDE 107 MMOL/L (98-107); CREATININE 0.9 MG/DL (0.55-1.30); POTASSIUM 3.2 MMOL/L (3.5-5.1); SODIUM 141 MMOL/L (136-145)
[2018-05-25 21:13] LABS: ALANINE AMINOTRANSFERASE 21 U/L (12-78); ALBUMIN 3.2 G/DL (3.4-5.0); ALBUMIN/GLOBULIN RATIO 1.2 (1.0-2.7); ALKALINE PHOSPHATASE 102 U/L (46-116); ASPARTATE AMINO TRANSFERASE 14 U/L (15-37); BILIRUBIN,TOTAL 1.5 MG/DL (0.2-1.0); PHOSPHORUS 1.6 MG/DL (2.5-4.9)
[2018-05-25 21:15] LABS: BILIRUBIN,DIRECT 0.3 MG/DL (0.0-0.3)
[2018-05-25] MEDS ORDERED: Levemir Flexpen SUBQ SCH (21:17)
--- NOTE | 2018-05-25 21:30 | History and Physical Report ---
DATE OF ADMISSION: 05/25/2018 TIME: 1 p.m. CONSULTANTS: 1. Tawana Casey M.D. 2. Alexander Nicole M.D. 3. Ronnie Yuen M.D. CHIEF COMPLAINT: Abdominal pain, vomiting and DKA. BRIEF HISTORY: The patient is a 22-year-old male, who lives at home, presents with history of diabetes type 1, presents to [facility] last night with history of abdominal pain and vomiting. The patient was found to have DKA and now admitted to ICU for further care. Currently, calm, sleeping in bed. No complaint. Slight nausea. The patient has no chest pain. No shortness of breath. Slight nausea and vomiting. No diarrhea. PAST MEDICAL HISTORY: Diabetes type 1. PAST SURGICAL HISTORY: None. MEDICATIONS: IV fluids, dextrose, insulin, Zofran, Tylenol and albuterol. ALLERGIES: Denies. SOCIAL HISTORY: No smoking. No alcohol. No intravenous drug abuse. FAMILY HISTORY: Noncontributory. PHYSICAL EXAMINATION: GENERAL: Slightly tired in bed, oriented x3, in no acute distress. VITAL SIGNS: Temperature is 98 degrees, pulse 99, respirations 16 and blood pressure 112/60. CARDIOVASCULAR: No murmur. LUNGS: Distant and clear. ABDOMEN: Bowel sounds positive. Nontender. Nondistended. EXTREMITIES: No cyanosis, clubbing or edema. NEUROLOGIC: The patient moves all extremities, but slightly weak. LABORATORY AND DIAGNOSTIC DATA: White count 13.8, otherwise CBC is normal. BMP shows CO2 12, glucose initially 84, now 203 and total bilirubin is 1.2, otherwise BMP is normal. Urine toxicology positive for acetone, slight moderate. ASSESSMENT: 1. Abdominal pain. 2. DKA. 3. Diabetes. PLAN: 1. Blood sugar control. 2. Dietary followup. 3. Pain control. 4. Zofran p.r.n. 5. Check CBC and BMP in the morning. Fredy Dunaway D.O. DR: AREN JOB#: [id number] CC:
[2018-05-25] MEDS ORDERED: Sucralfate 1gm tab ORAL SCH (22:00)
[2018-05-25] MEDS ORDERED: NS w/KCl 20mEq 1,000 ML IV SCH (22:00)
[2018-05-25] MEDS ORDERED: Phospha 250 Neutral tab ORAL SCH (22:00)
[2018-05-26] VITALS: BP 121/55
[2018-05-26] MEDS ORDERED: Nitroglycerin Subl 0.4mg tab SL PRN (01:00)
[2018-05-26] MEDS ORDERED: Albuterol/Ipratropium 3ml neb HHN PRN (01:15)
[2018-05-26] MEDS ORDERED: NS 275ml ONE (05:59)
[2018-05-26] MEDS ORDERED: Tubing IV Secondary IV ONE (05:59)
[2018-05-26] MEDS ORDERED: Sucralfate 1gm tab ORAL SCH (06:00)
[2018-05-26] MEDS ORDERED: NovoLOG Insulin Flexpen SUBQ SCH ×3 (06:30)
--- NOTE | 2018-05-26 08:44 | Discharge Summary ---
Discharge Summary Discharge Summary _ DATE OF ADMISSION: 05/25/2018 DATE OF DISCHARGE: 05/26/2018. Patient signed AGAINST MEDICAL ADVICE. REASON FOR ADMISSION: 22 years old male with past medical history of asthma, diabetes mellitus type 1 ( diagnosed three years ago), was recently discharged from the hospital. He presented to ED complaining of intractable nausea and vomiting. No fevers, no chills. He stated that when he was discharged, his " gap" was still elevated. Upon evaluation patient was tachycardic, no fever. Laboratory workup revealed WBC 13.8. Potassium 3.5, sodium 137. Anion gap 23. CO2 16. Troponin negative. Patient admitted with diagnoses of diabetic ketoacidosis, dehydration ,nausea and vomiting CONSULTANTS: critical care Dr. Casey GI specialist Dr. Nicole color sprayer Dr. Yuen [facility] COURSE: Patient admitted to ICU. Insulin drip started as per protocol. Patient was on aggressive IV hydration. Critical care physician clsoely followed. Renal parameters and electrolytes were closely monitored. Electrolytes corrected as needed. Market Maker and GI specialist closely followed. When anion gap closed, insulin drip discontinued and patient was transferred to telemetry. Blood sugar was subsequently managed with long-acting insulin and short acting pre-meal insulin along with sliding scale of insulin as needed. Hemoglobin A1c on previous admission - 11.1, obviously not at goal. Patient apparently noncompliant with his medication regimen. Patient was educated on compliance with medication regimen at home and close follow up with primary care provider to achieve good glycemic control. Patient was educated on diabetic diet. DVT and GI prophylaxis provided. GI specialist closely followed. Symptomatic treatment provided. Antiemetics provided as needed. Nausea and vomiting resolved , and patient was able to tolerate diet. Pulse oximetry was stable on room air. Pulmonary toilet was on board as needed. No signs of bronchospasm or respiratory distress. Patient decided to sign AGAINST MEDICAL ADVICE since he was not able to sleep at night. He reported that he had an Accu-Chek machine and insulin at home and knows how to take care of his diabetes. The risks and consequences of signing AGAINST MEDICAL ADVICE were discussed with patient in detail. Patient verbalized understanding, nevertheless signed AMA form and left. FINAL DIAGNOSES: Diabetic ketoacidosis Diabetes mellitus type 1 Nausea vomiting Dehydration I have been assigned to dictate discharge summary for this account. I was not involved in the patient's management. Ayesha Perry NP May 26, 2018 08:44
[2018-05-26] MEDS ORDERED: Pantoprazole Inj IVP SCH (09:00)
[2018-05-26] MEDS ORDERED: Heparin 5000 units/ml inj SUBQ SCH (09:00)
[2018-05-26] MEDS ORDERED: Levemir Flexpen SUBQ SCH (21:00)
--- NOTE | 2018-05-30 01:34 | Diagnostic Imaging Report ---
APPROVED REPORT CPT Code: 76605 Present Symptoms Comments: BILATERAL LEGS PAIN. BILATERAL: Imaging reveals a patent deep venous system bilaterally. There is no evidence of thrombus within the femoral, popliteal or tibial segments. The greater saphenous veins are also within normal limits. Doppler indicates normal spontaneous flow within these segments.
== END 2018-05-26 06:00 | disposition left against medical advice (07) | DRG 420 ==
LOC: EMR 00:49 → EDBEDREQ 03:16 → ICU 03:37 → EDBEDREQ 05:15 → 3E 05-26 00:53
DX: E10.10 Type 1 diabetes mellitus with ketoacidosis without coma (principal); E86.0 Dehydration; Z79.4 Long term (current) use of insulin
CPT/HCPCS: 36415; 71045; 80053; 82009; 82248; 82962; 83690; 83735; 84100; 84484; 85025; 87081; 93970; 94664; 96361; 96372; 96374; 96375; 99291; C9399; J1815; J2405; J8499; S5561

== ENCOUNTER 2018-08-30 16:09 | Emergency (ER) | payer OTHER ==
[~2018-08-30] VITALS: Ht 172.7 cm; Wt 61.2 kg
--- NOTE | 2018-08-30 16:33 | Emergency Room Report ---
History of Present Illness General Chief Complaint: Abdominal Pain Source: Patient Present Illness HPI Patient is a 22-year-old male presents after increased epigastric pain. Patient reports being more nauseated than usual after eating some chicken which he thinks may have been bad. Patient states that he has been vomiting and having diarrhea. Patient reports not being compliant with his insulin for the past 2 days because he felt this may make his sugar too low. Patient has any fever. He had not been having any hematemesis or bloody stools. Patient had prior history of type 1 diabetes. Allergies: Coded Allergies: No Known Allergies (Unverified , 03/27/14) Patient History Past Medical History: see triage record Reviewed Nursing Documentation: PMH: Agreed; PSxH: Agreed Nursing Documentation-PMH Past Medical History: No History, Except For Hx Cardiac Problems: No Hx Asthma: Yes Hx Diabetes: Yes - DM Type 1 Hx Cancer: No Hx Neurological Problems: No Review of Systems All Other Systems: negative except mentioned in HPI Physical Exam Vital Signs Date Time Temp Pulse Resp B/P (MAP) Pulse Ox O2 Delivery O2 Flow Rate FiO2 08/30/18 16:11 98.8 90 20 113/80 97 Room Air Sp02 EP Interpretation: reviewed, normal General Appearance: normal inspection, well appearing, no apparent distress, alert, GCS 15, thin, Chronically Ill Head: atraumatic ENT: normal ENT inspection, hearing grossly normal, normal voice Neck: normal inspection, full range of motion, supple, no bony tend Respiratory: normal inspection, lungs clear, normal breath sounds, no respiratory distress, no retraction, no wheezing Cardiovascular #1: regular rate, rhythm, no edema Gastrointestinal: normal inspection, normal bowel sounds, non tender, soft, no guarding, no hernia Genitourinary: no CVA tenderness Musculoskeletal: normal inspection, back normal, normal range of motion Neurologic: normal inspection, alert, responsive, speech normal Psychiatric: normal inspection, judgement/insight normal, mood/affect normal Skin: normal inspection, normal color, no rash Medical Decision Making Diagnostic Impression: Primary Impression: Dehydration Additional Impressions: Gastroenteritis Diabetes mellitus ER Course . Patient presented for abdominal pain. Differential diagnoses included ischemic bowel, appendicitis, perforated viscus, abdominal aortic aneurysm, inferior myocardial infarction, viral gastroenteritis .Because of complexity of patient's case laboratory testing and imaging studies were ordered.The patient was given IV fluids as well as oral potassium. Patient was noted to have improvement in symptoms.Patient was subsequently able to tolerate oral fluids Patient's EKG does not dynamically changing. Patient's EKG changes are likely related to patient's dehydration. Patient given IV fluids with improvement in his anion gap. Patient stated he felt better. Patient is given prescription for Zofran The patient is advised to follow up with primary care doctor in 1-2 days. Patient is advised to return if any worsening condition or if any changes in status that are concerning. This report is dictated with [employer] cabbage salter software which may occasionally lead to discrepancies related to use of this software. Labs Test 08/30/18 16:45 08/30/18 18:10 White Blood Count 10.9 K/UL (4.8-10.8) Red Blood Count 6.61 M/UL (4.70-6.10) Hemoglobin 18.4 G/DL (14.2-18.0) Hematocrit 56.2 % (42.0-52.0) Mean Corpuscular Volume 85 FL (80-99) Mean Corpuscular Hemoglobin 27.8 PG (27.0-31.0) Mean Corpuscular Hemoglobin Concent 32.7 G/DL (32.0-36.0) Red Cell Distribution Width 11.3 % (11.6-14.8) Platelet Count 277 K/UL (150-450) Mean Platelet Volume 9.4 FL (6.5-10.1) Neutrophils (%) (Auto) 82.6 % (45.0-75.0) Lymphocytes (%) (Auto) 12.8 % (20.0-45.0) Monocytes (%) (Auto) 4.0 % (1.0-10.0) Eosinophils (%) (Auto) 0.0 % (0.0-3.0) Basophils (%) (Auto) 0.6 % (0.0-2.0) Urine Color Pale yellow Urine Appearance Clear Urine pH 5 (4.5-8.0) Urine Specific [place] 1.025 (1.005-1.035) Urine Protein 3+ (NEGATIVE) Urine Glucose (UA) 4+ (NEGATIVE) Urine Ketones 4+ (NEGATIVE) Urine Blood 1+ (NEGATIVE) Urine Nitrite Negative (NEGATIVE) Urine Bilirubin Negative (NEGATIVE) Urine Urobilinogen Normal MG/DL (0.0-1.0) Urine Leukocyte Esterase Negative (NEGATIVE) Urine RBC 0-2 /HPF (0 - 0) Urine WBC 0-2 /HPF (0 - 0) Urine Squamous Epithelial Cells Occasional /LPF Urine Bacteria Few /HPF (NONE) Magnesium Level 1.8 MG/DL (1.8-2.4) Lipase 44 U/L (73-393) Acetone Level Positive-small (NEGATIVE) Sodium Level 136 MMOL/L (136-145) Potassium Level 3.3 MMOL/L (3.5-5.1) Chloride Level 99 MMOL/L (98-107) Carbon Dioxide Level 20 MMOL/L (21-32) Anion Gap 17 mmol/L (5-15) Blood Urea Nitrogen 10 mg/dL (7-18) Creatinine 1.0 MG/DL (0.55-1.30) Estimat Glomerular Filtration Rate > 60 mL/min (>60) Glucose Level 188 MG/DL (74-106) Calcium Level 8.8 MG/DL (8.5-10.1) Total Bilirubin 1.3 MG/DL (0.2-1.0) Direct Bilirubin 0.2 MG/DL (0.0-0.3) Aspartate Amino Transf (AST/SGOT) 11 U/L (15-37) Alanine Aminotransferase (ALT/SGPT) 28 U/L (12-78) Alkaline Phosphatase 142 U/L (46-116) Total Protein 8.1 G/DL (6.4-8.2) Albumin 3.7 G/DL (3.4-5.0) Globulin 4.4 g/dL Albumin/Globulin Ratio 0.8 (1.0-2.7) EKG Diagnostic Results Rate: normal Rhythm: NSR ST Segments: other - ekg unchanged from previous Rhythm Strip Diag. Results EP Interpretation: yes Rhythm: NSR, no PVC's, no ectopy Last Vital Signs Date Time Temp Pulse Resp B/P (MAP) Pulse Ox O2 Delivery O2 Flow Rate FiO2 08/30/18 16:11 98.8 90 20 113/80 97 Room Air Status: improved Disposition: HOME, SELF-CARE Scripts Ondansetron (Zofran) 4 Mg Tablet 4 MG ORAL Q6H PRN for Nausea & Vomiting, #30 TAB 0 Refills Prov: William Nelson MD 08/30/18 William Nelson MD Aug 30, 2018 16:33
[2018-08-30 17:02] LABS: BASOPHILS % (AUTO) 0.6 % (0.0-2.0); HEMATOCRIT 56.2 % (42.0-52.0); LYMPHOCYTES % (AUTO) 12.8 % (20.0-45.0); MEAN CORPUSCULAR VOLUME 85 FL (80-99); NEUTROPHILS % (AUTO) 82.6 % (45.0-75.0); PLATELET COUNT 277 K/UL (150-450); RED BLOOD COUNT 6.61 M/UL (4.70-6.10); RED CELL DISTRIBUTION WIDTH 11.3 % (11.6-14.8); WHITE BLOOD COUNT 10.9 K/UL (4.8-10.8)
[2018-08-30 17:05] LABS: APPEARANCE,URINE CLEAR; BILIRUBIN, URINE NEGATIVE (NEGATIVE); COLOR,URINE PALE YELLOW; GLUCOSE, URINE (UA) 4+ (NEGATIVE); KETONES,URINE 4+ (NEGATIVE); LEUKOCYTE ESTERASE ,URINE NEGATIVE (NEGATIVE); NITRITE,URINE NEGATIVE (NEGATIVE); PH,URINE 5 (4.5-8.0); PROTEIN,URINE 3+ (NEGATIVE); UROBILINOGEN,URINE NORMAL MG/DL (0.0-1.0)
[2018-08-30 17:09] LABS: HEMOGLOBIN 18.4 G/DL (14.2-18.0)
[2018-08-30 17:13] VITALS: BP 112/72
[2018-08-30 17:21] LABS: ANION GAP 22 mmol/L (5-15); BLOOD UREA NITROGEN 11 mg/dL (7-18); CARBON DIOXIDE 19 MMOL/L (21-32); CHLORIDE 93 MMOL/L (98-107); CREATININE 1.3 MG/DL (0.55-1.30); POTASSIUM 3.2 MMOL/L (3.5-5.1); SODIUM 134 MMOL/L (136-145)
[2018-08-30 17:31] LABS: ALANINE AMINOTRANSFERASE 28 U/L (12-78); ALBUMIN 4.6 G/DL (3.4-5.0); ALBUMIN/GLOBULIN RATIO 0.8 (1.0-2.7); ALKALINE PHOSPHATASE 177 U/L (46-116); ASPARTATE AMINO TRANSFERASE 14 U/L (15-37); BILIRUBIN,TOTAL 1.7 MG/DL (0.2-1.0)
[2018-08-30 17:45] LABS: BILIRUBIN,DIRECT 0.2 MG/DL (0.0-0.3)
[2018-08-30 18:56] LABS: ANION GAP 17 mmol/L (5-15); BLOOD UREA NITROGEN 10 mg/dL (7-18); CALCIUM 8.8 MG/DL (8.5-10.1); CARBON DIOXIDE 20 MMOL/L (21-32); CHLORIDE 99 MMOL/L (98-107); POTASSIUM 3.3 MMOL/L (3.5-5.1); SODIUM 136 MMOL/L (136-145)
[2018-08-30 19:08] LABS: ALANINE AMINOTRANSFERASE 28 U/L (12-78); ALBUMIN 3.7 G/DL (3.4-5.0); ALBUMIN/GLOBULIN RATIO 0.8 (1.0-2.7); ALKALINE PHOSPHATASE 142 U/L (46-116); ASPARTATE AMINO TRANSFERASE 11 U/L (15-37); BILIRUBIN,TOTAL 1.3 MG/DL (0.2-1.0)
[2018-08-30 19:12] LABS: BILIRUBIN,DIRECT 0.2 MG/DL (0.0-0.3)
[2018-08-30] MEDS ORDERED: Sodium Chloride 500ML 500 ML IV ONE (19:15)
[2018-08-30 19:28] VITALS: BP 121/71
[2018-08-30] MEDS ORDERED: ZOFRAN4 MG ORAL (19:44)
[2018-08-30 19:54] VITALS: BP 131/79
--- NOTE | 2018-08-31 10:33 | Diagnostic Imaging Report ---
Indication: Shortness of breath Technique: XRAY Chest 1v Comparison: 05/25/2018 Findings: Heart size and mediastinal contours are within normal limits for AP technique and stable compared to the prior exam. There is no focal consolidation, pneumothorax or pleural effusion. Osseous structures demonstrate no acute abnormality. Impression: No radiographic evidence of acute cardiopulmonary disease.
== END 2018-08-30 19:56 | disposition home or self-care (01) ==
LOC: EMR 17:45
DX: E86.0 Dehydration (principal); K52.9 Noninfective gastroenteritis and colitis, unspecified; J45.909 Unspecified asthma, uncomplicated; E10.9 Type 1 diabetes mellitus without complications
CPT/HCPCS: 36415; 71045; 80053; 81003; 82009; 82248; 82962; 83690; 83735; 85025; 93005; 96361; 96374; 99284; J1817; J2405; J7040; J8499

== ENCOUNTER 2018-10-18 14:18 | Inpatient (IN) | payer OTHER ==
[2018-10-18] VITALS (9 sets, daily range): BP systolic 119–148; BP diastolic 60–100
[~2018-10-18] VITALS: Ht 177.8 cm; Wt 59.5 kg
[~2018-10-18 14:18] MED LIST changes: +ZOFRAN4 MG ORAL
[2018-10-18] MEDS ORDERED: [UNRECOGNIZED DRUG - OTHER] SUBQ (14:24)
[2018-10-18] MEDS ORDERED: Morphine Sulfate 4mg/ml Inj (IV/IM USE ONLY) IVP ONE ×2 (14:45→16:45)
[2018-10-18 14:59] LABS: HEMATOCRIT 53.3 % (42.0-52.0); MEAN CORPUSCULAR VOLUME 88 FL (80-99); PLATELET COUNT 266 K/UL (150-450); RED BLOOD COUNT 6.03 M/UL (4.70-6.10); RED CELL DISTRIBUTION WIDTH 12.7 % (11.6-14.8)
[2018-10-18 15:15] LABS: WHITE BLOOD COUNT 25.6 K/UL (4.8-10.8)
[2018-10-18 15:32] LABS: ALANINE AMINOTRANSFERASE 24 U/L (12-78); ALBUMIN/GLOBULIN RATIO 1.2 (1.0-2.7); ALKALINE PHOSPHATASE 158 U/L (46-116); ANION GAP 29 mmol/L (5-15); ASPARTATE AMINO TRANSFERASE 18 U/L (15-37); BILIRUBIN,TOTAL 1.4 MG/DL (0.2-1.0); BLOOD UREA NITROGEN 12 mg/dL (7-18); CALCIUM 9.8 MG/DL (8.5-10.1); CARBON DIOXIDE 11 MMOL/L (21-32); CHLORIDE 93 MMOL/L (98-107); CREATININE 1.5 MG/DL (0.55-1.30); POTASSIUM 5.4 MMOL/L (3.5-5.1); SODIUM 133 MMOL/L (136-145)
[2018-10-18 15:36] LABS: BILIRUBIN,DIRECT 0.2 MG/DL (0.0-0.3)
[2018-10-18] MEDS ORDERED: Isovue-300 100ml vial INJ PRN (15:45)
--- NOTE | 2018-10-18 16:01 | Diagnostic Imaging Report ---
Indication: Abdominal pain Comparison: 10/07/2015 Single view of the abdomen obtained Findings: Bowel gas pattern is nonspecific. No mass, ectopic calcifications, or abnormal gas collections are identified. The bones are unremarkable. Impression: No acute findings
[2018-10-18 16:16] LABS: APPEARANCE,URINE CLEAR; BILIRUBIN, URINE NEGATIVE (NEGATIVE); COLOR,URINE PALE YELLOW; GLUCOSE, URINE (UA) 4+ (NEGATIVE); KETONES,URINE 4+ (NEGATIVE); LEUKOCYTE ESTERASE ,URINE NEGATIVE (NEGATIVE); NITRITE,URINE NEGATIVE (NEGATIVE); PH,URINE 5 (4.5-8.0); PROTEIN,URINE 2+ (NEGATIVE); UROBILINOGEN,URINE NORMAL MG/DL (0.0-1.0)
--- NOTE | 2018-10-18 16:44 | Diagnostic Imaging Report ---
Indication: Abdominal pain Technique: Continuous helical transaxial imaging of the abdomen and pelvis was obtained from the lung bases to the pubic symphysis. No intravenous contrast was administered. Coronal 2-D reformats were also obtained. Automatic Exposure Control was utilized. Total Dose length Product (DLP): 505.[address] Dose Index Volume (CTDIvol): 9.77 mGy Comparison: 01/16/2018 Findings: The lung bases are clear. The gallbladder is identified and contracted. No obvious gallstones identified. Evaluation of solid organs is limited on this study done without intravenous contrast administration. The appendix is normal. The kidneys appear symmetric. There is no hydronephrosis or urinary tract stones identified. The wall of the urinary bladder is mildly thickened. Correlate for cystitis. There is no obvious free fluid. There is a probable small hiatal hernia. IMPRESSION: Query mild cystitis. Some thickening of the wall of the urinary bladder may be present. Correlate clinically. Negative limited exam otherwise. The CT scanner at [facility] is accredited by the [employer] and the scans are performed using dose optimization techniques as appropriate to a performed exam including Automatic Exposure control.
--- NOTE | 2018-10-18 18:30 | History and Physical ---
History of Present Illness General Date patient seen: Oct 18, 2018 Time patient seen: 18:00 Reason for Hospitalization: Nausea, Vomiting, and Diarrhea Present Illness HPI 22 year old man with diabetes x 3 years who presents with 1 day of intractable nausea, vomiting and diarrhea. He repoets missing dose of Lantus last night. Patient has been admitted to [facility] [place] for DKA on previous occasions. He denies fever, chills, urinary symptoms. In ED he was started in insulin infusion and referred for admission to the ICU. PMHx DM Family history: no premature CAD Social History: No alcohol consumption Allergies: Coded Allergies: No Known Allergies (Unverified , 03/27/14) Medication History Scheduled Insulin Glargine (Lantus), 28 UNITS SUBQ BEDTIME Insulin Lispro (Humalog), 8 UNITS SUBQ TID Scheduled PRN Albuterol Sulfate* (Albuterol Sulfate Mdi*), 2 PUFF INH Q4H PRN for For Cough Ondansetron (Zofran), 4 MG ORAL Q6H PRN for Nausea & Vomiting Miscellaneous Medications [insluin], SUBQ, (Reported) Patient History Healthcare decision maker Resuscitation status Advanced Directive on File Review of Systems Constitutional: Reports: chills; Denies: sweats Eye: Denies: eye pain ENT: Denies: ear pain Respiratory: Denies: cough Cardiovascular: Denies: chest pain Gastrointestinal: Reports: diarrhea, nausea, vomiting; Denies: abdominal pain Genitourinary: Denies: discharge, dysuria, frequency Musculoskeletal: Denies: back pain, gout Skin: Denies: rash Neurological: Denies: headache, numbness Endocrine: Denies: excessive sweating Physical Exam General Appearance: alert HEENT: normocephalic, atraumatic Neck: non-tender, normal alignment Respiratory/Chest: chest wall non-tender, lungs clear Cardiovascular/Chest: normal peripheral pulses, normal rate Abdomen: normal bowel sounds, non tender, soft Extremities: normal range of motion, non-tender Neurologic: road maker II-XII grossly normal, no motor/sensory deficits Last 24 Hour Vital Signs Date Time Temp Pulse Resp B/P (MAP) Pulse Ox O2 Delivery O2 Flow Rate FiO2 10/18/18 16:10 97.5 115 20 127/100 98 Room Air 10/18/18 15:30 112 20 129/77 99 Room Air 10/18/18 15:21 97.9 10/18/18 15:12 97.9 111 18 135/82 97 Room Air 10/18/18 14:19 97.9 111 16 156/93 97 Room Air Laboratory Tests Test 10/18/18 14:45 10/18/18 15:50 White Blood Count 25.6 K/UL (4.8-10.8) *H Red Blood Count 6.03 M/UL (4.70-6.10) Hemoglobin 17.0 G/DL (14.2-18.0) Hematocrit 53.3 % (42.0-52.0) H Mean Corpuscular Volume 88 FL (80-99) Mean Corpuscular Hemoglobin 28.2 PG (27.0-31.0) Mean Corpuscular Hemoglobin Concent 31.9 G/DL (32.0-36.0) L Red Cell Distribution Width 12.7 % (11.6-14.8) Platelet Count 266 K/UL (150-450) Mean Platelet Volume 9.8 FL (6.5-10.1) Neutrophils (%) (Auto) % (45.0-75.0) Lymphocytes (%) (Auto) % (20.0-45.0) Monocytes (%) (Auto) % (1.0-10.0) Eosinophils (%) (Auto) % (0.0-3.0) Basophils (%) (Auto) % (0.0-2.0) Differential Total Cells Counted 100 Neutrophils % (Manual) 87 % (45-75) H Lymphocytes % (Manual) 7 % (20-45) L Monocytes % (Manual) 3 % (1-10) Eosinophils % (Manual) 0 % (0-3) Basophils % (Manual) 0 % (0-2) Band Neutrophils 3 % (0-8) Platelet Estimate Adequate Platelet Morphology Normal Red Blood Cell Morphology Normal Sodium Level 133 MMOL/L (136-145) L Potassium Level 5.4 MMOL/L (3.5-5.1) H Chloride Level 93 MMOL/L (98-107) L Carbon Dioxide Level 11 MMOL/L (21-32) L Anion Gap 29 mmol/L (5-15) H Blood Urea Nitrogen 12 mg/dL (7-18) Creatinine 1.5 MG/DL (0.55-1.30) H Estimat Glomerular Filtration Rate > 60 mL/min (>60) Glucose Level 518 MG/DL (74-106) *H Calcium Level 9.8 MG/DL (8.5-10.1) Total Bilirubin 1.4 MG/DL (0.2-1.0) H Direct Bilirubin 0.2 MG/DL (0.0-0.3) Aspartate Amino Transf (AST/SGOT) 18 U/L (15-37) Alanine Aminotransferase (ALT/SGPT) 24 U/L (12-78) Alkaline Phosphatase 158 U/L (46-116) H Total Protein 9.2 G/DL (6.4-8.2) H Albumin 5.0 G/DL (3.4-5.0) Globulin 4.2 g/dL Albumin/Globulin Ratio 1.2 (1.0-2.7) Lipase 42 U/L (73-393) L Urine Color Pale yellow Urine Appearance Clear Urine pH 5 (4.5-8.0) Urine Specific [place] 1.020 (1.005-1.035) Urine Protein 2+ (NEGATIVE) H Urine Glucose (UA) 4+ (NEGATIVE) H Urine Ketones 4+ (NEGATIVE) H Urine Blood 1+ (NEGATIVE) H Urine Nitrite Negative (NEGATIVE) Urine Bilirubin Negative (NEGATIVE) Urine Urobilinogen Normal MG/DL (0.0-1.0) Urine Leukocyte Esterase Negative (NEGATIVE) Urine RBC 2-4 /HPF (0 - 0) H Urine WBC 0-2 /HPF (0 - 0) Urine Squamous Epithelial Cells None /LPF (NONE/OCC) Urine Bacteria Few /HPF (NONE) Height (Feet): 5 Height (Inches): 10.00 Weight (Pounds): 140 Medications Current Medications Medications (Trade) Dose Ordered Sig/Arianne Route PRN Reason Start Time Stop Time Status Last Admin Dose Admin Insulin Human Regular 100 units/ Sodium Chloride 100 ml @ 6 mls/hr Q24H IV 10/18/18 15:45 11/17/18 15:44 10/18/18 16:18 Iopamidol (Isovue-300 100ml) 100 ml NOW PRN INJ Radiology Procedure 10/18/18 15:45 Assessment/Plan Assessment/Plan DKA, possible underlying viral gastroenteritis -admit to ICU -continue insulin drip with q1h finger sticks -Repeat BMP -Resume Lantus at outpatient dosing -check stool studies -Chemist Inorganic consult Full Code Ambulation for VTE Prophylaxis Patient is high risk for given the nature of his DKA, will require close ICU monitoring and insulin infusion in the ICU Judson Dick MD Oct 18, 2018 18:30
--- NOTE | 2018-10-18 19:03 | Emergency Room Report ---
History of Present Illness General Chief Complaint: Nausea, Vomiting, and Diarrhea Source: Patient Present Illness HPI Patient presents emergency department today complaining nausea vomiting abdominal pain. Patient states that he has not been feeling well for last 3 days. He's develop acute onset abdominal discomfort. He does have a history of diabetes and insulin dependent diabetes. He also has history of gastroparesis per symptoms noted to be highly severe. Patient has been unable to eat.No other modifying factors. No other associated signs and symptoms. No other complaints were noted.Patient states that he is compliant with his diabetic medications. Allergies: Coded Allergies: No Known Allergies (Unverified , 03/27/14) Patient History Past Medical History: DM, asthma Past Surgical History: none Pertinent Family History: none Social History: Denies: smoking, alcohol use, drug use Reviewed Nursing Documentation: PMH: Agreed; PSxH: Agreed Nursing Documentation-PMH Hx Cardiac Problems: No Hx Asthma: Yes Hx Diabetes: Yes - DM Type 1 Hx Cancer: No Hx Neurological Problems: No Review of Systems All Other Systems: negative except mentioned in HPI Physical Exam Vital Signs Date Time Temp Pulse Resp B/P (MAP) Pulse Ox O2 Delivery O2 Flow Rate FiO2 10/18/18 14:19 97.9 111 16 156/93 97 Room Air Sp02 EP Interpretation: reviewed, normal General Appearance: alert, severe distress, thin Head: normocephalic, atraumatic Eyes: bilateral eye normal inspection ENT: normal ENT inspection, hearing grossly normal, normal voice Neck: normal inspection, full range of motion, supple, no bony tend Respiratory: normal inspection, lungs clear, normal breath sounds, no respiratory distress, no retraction, no wheezing Cardiovascular #1: no edema, tachycardia Gastrointestinal: normal inspection, normal bowel sounds, non tender, soft, no guarding, no hernia Genitourinary: no CVA tenderness Musculoskeletal: normal inspection, back normal, normal range of motion Neurologic: normal inspection, alert, responsive, speech normal Psychiatric: depressed affect, anxious Skin: normal inspection, normal color, no rash Procedures Critical Care Time Critical Care Time Patient had a critical medical condition which untreated could potentially result in life or limb threatening injury. Total critical care time excluding procedures was approximately 45 minutes. Medical Decision Making Diagnostic Impression: Primary Impression: DKA (diabetic ketoacidoses) Additional Impressions: Nausea, vomiting, and diarrhea Dehydration ER Course Patient presents emergency department today with severe weakness. Patient has nausea vomiting diarrhea and has elevated glucose. Differential considerations include DKA, gastroparesis, dehydration, pancreatitis, cholecystitis, appendicitis just name a few.Given the severity of the patient's presentation I felt this is a highly complex patient. This patient required extensive workup. Patient laboratory workup shows evidence of DKA. Patient was started on fluids and insulin drip. Patient will be admitted to intensive care unit. Case was discussed with fire fighter and admitting physician. Patient also had abdominal pain therefore CT scan was performed which not show any acute intra- abdominal emergency. Labs Test 10/18/18 14:45 10/18/18 15:50 White Blood Count 25.6 K/UL (4.8-10.8) Red Blood Count 6.03 M/UL (4.70-6.10) Hemoglobin 17.0 G/DL (14.2-18.0) Hematocrit 53.3 % (42.0-52.0) Mean Corpuscular Volume 88 FL (80-99) Mean Corpuscular Hemoglobin 28.2 PG (27.0-31.0) Mean Corpuscular Hemoglobin Concent 31.9 G/DL (32.0-36.0) Red Cell Distribution Width 12.7 % (11.6-14.8) Platelet Count 266 K/UL (150-450) Mean Platelet Volume 9.8 FL (6.5-10.1) Neutrophils (%) (Auto) % (45.0-75.0) Lymphocytes (%) (Auto) % (20.0-45.0) Monocytes (%) (Auto) % (1.0-10.0) Eosinophils (%) (Auto) % (0.0-3.0) Basophils (%) (Auto) % (0.0-2.0) Differential Total Cells Counted 100 Neutrophils % (Manual) 87 % (45-75) Lymphocytes % (Manual) 7 % (20-45) Monocytes % (Manual) 3 % (1-10) Eosinophils % (Manual) 0 % (0-3) Basophils % (Manual) 0 % (0-2) Band Neutrophils 3 % (0-8) Platelet Estimate Adequate Platelet Morphology Normal Red Blood Cell Morphology Normal Sodium Level 133 MMOL/L (136-145) Potassium Level 5.4 MMOL/L (3.5-5.1) Chloride Level 93 MMOL/L (98-107) Carbon Dioxide Level 11 MMOL/L (21-32) Anion Gap 29 mmol/L (5-15) Blood Urea Nitrogen 12 mg/dL (7-18) Creatinine 1.5 MG/DL (0.55-1.30) Estimat Glomerular Filtration Rate > 60 mL/min (>60) Glucose Level 518 MG/DL (74-106) Calcium Level 9.8 MG/DL (8.5-10.1) Total Bilirubin 1.4 MG/DL (0.2-1.0) Direct Bilirubin 0.2 MG/DL (0.0-0.3) Aspartate Amino Transf (AST/SGOT) 18 U/L (15-37) Alanine Aminotransferase (ALT/SGPT) 24 U/L (12-78) Alkaline Phosphatase 158 U/L (46-116) Total Protein 9.2 G/DL (6.4-8.2) Albumin 5.0 G/DL (3.4-5.0) Globulin 4.2 g/dL Albumin/Globulin Ratio 1.2 (1.0-2.7) Lipase 42 U/L (73-393) Urine Color Pale yellow Urine Appearance Clear Urine pH 5 (4.5-8.0) Urine Specific [place] 1.020 (1.005-1.035) Urine Protein 2+ (NEGATIVE) Urine Glucose (UA) 4+ (NEGATIVE) Urine Ketones 4+ (NEGATIVE) Urine Blood 1+ (NEGATIVE) Urine Nitrite Negative (NEGATIVE) Urine Bilirubin Negative (NEGATIVE) Urine Urobilinogen Normal MG/DL (0.0-1.0) Urine Leukocyte Esterase Negative (NEGATIVE) Urine RBC 2-4 /HPF (0 - 0) Urine WBC 0-2 /HPF (0 - 0) Urine Squamous Epithelial Cells None /LPF (NONE/OCC) Urine Bacteria Few /HPF (NONE) CT/MRI/US Diagnostic Results CT/MRI/US Diagnostic Results : Imaging Test Ordered: CT pelvis: Negative per radiology Last Vital Signs Date Time Temp Pulse Resp B/P (MAP) Pulse Ox O2 Delivery O2 Flow Rate FiO2 10/18/18 18:45 97.8 103 18 133/85 100 Room Air Status: improved Disposition: ADMITTED INPATIENT Condition: Critical Referrals: [facility],REFERRING (PCP) Obdulio Schwartz MD Oct 18, 2018 19:03
[2018-10-18] MEDS ORDERED: D5 1/2NS w/KCl 20mEq 1,000 ML IV SCH (19:30)
[2018-10-18] MEDS ORDERED: MAGNESIUM SULFATE IV ONE (20:00)
[2018-10-18] MEDS ORDERED: D5W IV ONE (20:00)
[2018-10-18] MEDS ORDERED: Levemir Flexpen SUBQ SCH (21:00)
[2018-10-18] MEDS ORDERED: Morphine Sulfate 2mg/ml Inj IVP PRN (21:30)
[2018-10-18] MEDS ORDERED: traMADol 50mg tab ORAL PRN (21:30)
[2018-10-18] MEDS ORDERED: Insulin Human Regular 100units/ml 3ml IV PRN (21:30)
[2018-10-18] MEDS: Morphine Sulfate 4mg/ml Inj (IV/IM USE ONLY) IVP PRN (22:02)
[2018-10-18] MEDS: D5 1/2NS w/KCl 20mEq 1,000 ML IV SCH (22:03)
[2018-10-18] MEDS ORDERED: Zoysn 3.37gm in NS 100ML IVPB SCH (22:30)
[2018-10-18 22:34] LABS: ANION GAP 16 mmol/L (5-15); BLOOD UREA NITROGEN 10 mg/dL (7-18); CALCIUM 8.7 MG/DL (8.5-10.1); CARBON DIOXIDE 17 MMOL/L (21-32); CHLORIDE 103 MMOL/L (98-107); CREATININE 1.2 MG/DL (0.55-1.30); POTASSIUM 4.5 MMOL/L (3.5-5.1); SODIUM 136 MMOL/L (136-145)
[2018-10-18] MEDS: Zoysn 3.37gm in NS 100ML IVPB SCH (23:22)
[2018-10-18] MEDS: Insulin Rate Change 1 Each MISC PRN (23:22)
[2018-10-18] MEDS: Insulin Human Regular 100units/ml 3ml IV PRN (23:23)
[2018-10-19] VITALS (19 sets, daily range): BP systolic 107–138; BP diastolic 49–78
[2018-10-19] MEDS: Insulin Human Regular 100units/ml 3ml IV PRN (00:21)
[2018-10-19] MEDS: Insulin Rate Change 1 Each MISC PRN ×5 (01:20→09:16)
[2018-10-19 02:27] LABS: ANION GAP 19 mmol/L (5-15); BLOOD UREA NITROGEN 10 mg/dL (7-18); CALCIUM 8.8 MG/DL (8.5-10.1); CARBON DIOXIDE 15 MMOL/L (21-32); CHLORIDE 102 MMOL/L (98-107); CREATININE 1.2 MG/DL (0.55-1.30); POTASSIUM 4.6 MMOL/L (3.5-5.1); SODIUM 136 MMOL/L (136-145)
[2018-10-19] MEDS: Morphine Sulfate 4mg/ml Inj (IV/IM USE ONLY) IVP PRN (04:08)
[2018-10-19] MEDS: Zoysn 3.37gm in NS 100ML IVPB SCH ×2 (05:53→13:20)
[2018-10-19] MEDS: D5 1/2NS w/KCl 20mEq 1,000 ML IV SCH ×2 (05:54→11:42)
[2018-10-19 06:45] LABS: ANION GAP 13 mmol/L (5-15); BLOOD UREA NITROGEN 7 mg/dL (7-18); CALCIUM 7.8 MG/DL (8.5-10.1); CARBON DIOXIDE 20 MMOL/L (21-32); CHLORIDE 102 MMOL/L (98-107); CREATININE 1.2 MG/DL (0.55-1.30); POTASSIUM 4.2 MMOL/L (3.5-5.1); SODIUM 135 MMOL/L (136-145)
[2018-10-19 06:48] LABS: BASOPHILS % (AUTO) 0.6 % (0.0-2.0); EOSINOPHILS % (AUTO) 0.1 % (0.0-3.0); HEMATOCRIT 44.3 % (42.0-52.0); HEMOGLOBIN 14.9 G/DL (14.2-18.0); LYMPHOCYTES % (AUTO) 9.4 % (20.0-45.0); MEAN CORPUSCULAR VOLUME 85 FL (80-99); MONOCYTES % (AUTO) 5.3 % (1.0-10.0); NEUTROPHILS % (AUTO) 84.6 % (45.0-75.0); PLATELET COUNT 216 K/UL (150-450); RED BLOOD COUNT 5.22 M/UL (4.70-6.10); RED CELL DISTRIBUTION WIDTH 12.6 % (11.6-14.8); WHITE BLOOD COUNT 17.2 K/UL (4.8-10.8)
[2018-10-19] MEDS ORDERED: Levemir Flexpen SUBQ SCH ×2 (09:00→21:00)
--- NOTE | 2018-10-19 09:27 | Pulmonolgy Critical Care Note ---
Critical Care - Asmt/Plan Problems: (1) DKA (diabetic ketoacidoses) (2) Dehydration (3) Diabetes mellitus (4) Cystitis Respiratory: monitor respiratory rate Cardiac: continue to monitor HR/BP Renal: keep IV fluid Infectious Disease: check cultures, continue antibiotics Gastrointestinal: other - ADA diet Endocrine: monitor blood sugar, d/c insulin drip - one hour after starting SQ, continue sliding scale insulin, other - Levemir 28 SQ qHS Neurologic: keep patient comfortable Affect: PRN ativan Prophylaxis: Heparin - SQ Disposition: transfer to - later today if stable off of insulin gtt Time Spent (Minutes): 40 Notes Reviewed: information technology associate Discussed with: nurses, consultants Critical Care - Objective Last 24 Hour Vital Signs Date Time Temp Pulse Resp B/P (MAP) Pulse Ox O2 Delivery O2 Flow Rate FiO2 10/19/18 08:00 Room Air 10/19/18 07:00 90 13 113/59 (77) 100 10/19/18 06:00 92 13 138/68 (91) 100 10/19/18 05:00 96 13 107/53 (71) 99 10/19/18 04:12 100 10/19/18 04:00 Room Air 10/19/18 04:00 99.0 96 13 116/59 (78) 100 10/19/18 03:00 92 14 107/52 (70) 100 10/19/18 02:00 98 19 137/63 (87) 100 10/19/18 01:00 101 14 136/62 (86) 99 10/19/18 00:00 98.9 113 15 122/63 (82) 99 10/19/18 00:00 Room Air 10/18/18 23:45 132 10/18/18 23:00 111 16 140/60 (86) 100 10/18/18 22:00 114 16 119/63 (81) 100 10/18/18 21:00 116 10/18/18 21:00 100.0 107 16 135/62 (86) 100 10/18/18 20:45 Room Air 10/18/18 20:30 97.8 104 15 148/74 100 Room Air 10/18/18 20:03 97.8 104 15 148/74 100 Room Air 10/18/18 18:45 97.8 103 18 133/85 100 Room Air 2/6/19 17:19 97.8 10/18/18 17:15 97.7 106 16 135/73 100 Room Air 10/18/18 16:10 97.5 115 20 127/100 98 Room Air 10/18/18 15:30 112 20 129/77 99 Room Air 10/18/18 15:21 97.9 10/18/18 15:12 97.9 111 18 135/82 97 Room Air 10/18/18 14:19 97.9 111 16 156/93 97 Room Air Status: awake Condition: improving HEENT: atraumatic, normocephalic Neck: full ROM Lungs: clear Heart: HR/BP stable Abdomen: soft, non-tender, active bowel sounds Extremities: no C/C/E Accucheck: 186 Blood Sugars: BS controlled Critical Care - Subjective ROS Limited/Unobtainable: Yes ICU Day: 2 Interval Events: AFVSS, gap closed, HCO3- 20, glu 206, WCt better Condition: improving IV Access: peripheral EKG Rhythm: Sinus Rhythm Fluids: [id number]@125 Drips: Insulin gtt - started overlap with SQ I&O: Intake and Output 10/18/18 10/19/18 19:00 07:00 Intake Total 2000 ml 1536.79 ml Output Total 1950 ml Balance 2000 ml -413.21 ml Intake Oral 0 ml IV Total 2000 ml 1536.79 ml Output Urine Total 1250 ml Emesis 700 ml # Voids 1 2 Subjective: No F/C/CP/SOB/N/V/D/C/abd pain/urinary complaints Labs: Laboratory Tests Test 10/18/18 14:45 10/18/18 15:50 10/18/18 22:15 10/18/18 22:19 White Blood Count 25.6 K/UL (4.8-10.8) *H Red Blood Count 6.03 M/UL (4.70-6.10) Hemoglobin 17.0 G/DL (14.2-18.0) Hematocrit 53.3 % (42.0-52.0) H Mean Corpuscular Volume 88 FL (80-99) Mean Corpuscular Hemoglobin 28.2 PG (27.0-31.0) Mean Corpuscular Hemoglobin Concent 31.9 G/DL (32.0-36.0) L Red Cell Distribution Width 12.7 % (11.6-14.8) Platelet Count 266 K/UL (150-450) Mean Platelet Volume 9.8 FL (6.5-10.1) Neutrophils (%) (Auto) % (45.0-75.0) Lymphocytes (%) (Auto) % (20.0-45.0) Monocytes (%) (Auto) % (1.0-10.0) Eosinophils (%) (Auto) % (0.0-3.0) Basophils (%) (Auto) % (0.0-2.0) Differential Total Cells Counted 100 Neutrophils % (Manual) 87 % (45-75) H Lymphocytes % (Manual) 7 % (20-45) L Monocytes % (Manual) 3 % (1-10) Eosinophils % (Manual) 0 % (0-3) Basophils % (Manual) 0 % (0-2) Band Neutrophils 3 % (0-8) Platelet Estimate Adequate Platelet Morphology Normal Red Blood Cell Morphology Normal Sodium Level 133 MMOL/L (136-145) L 136 MMOL/L (136-145) Potassium Level 5.4 MMOL/L (3.5-5.1) H 4.5 MMOL/L (3.5-5.1) Chloride Level 93 MMOL/L (98-107) L 103 MMOL/L (98-107) Carbon Dioxide Level 11 MMOL/L (21-32) L 17 MMOL/L (21-32) L Anion Gap 29 mmol/L (5-15) H 16 mmol/L (5-15) H Blood Urea Nitrogen 12 mg/dL (7-18) 10 mg/dL (7-18) Creatinine 1.5 MG/DL (0.55-1.30) H 1.2 MG/DL (0.55-1.30) Estimat Glomerular Filtration Rate > 60 mL/min (>60) > 60 mL/min (>60) Glucose Level 518 MG/DL (74-106) *H 184 MG/DL (74-106) #H Calcium Level 9.8 MG/DL (8.5-10.1) 8.7 MG/DL (8.5-10.1) Total Bilirubin 1.4 MG/DL (0.2-1.0) H Direct Bilirubin 0.2 MG/DL (0.0-0.3) Aspartate Amino Transf (AST/SGOT) 18 U/L (15-37) Alanine Aminotransferase (ALT/SGPT) 24 U/L (12-78) Alkaline Phosphatase 158 U/L (46-116) H Total Protein 9.2 G/DL (6.4-8.2) H Albumin 5.0 G/DL (3.4-5.0) Globulin 4.2 g/dL Albumin/Globulin Ratio 1.2 (1.0-2.7) Lipase 42 U/L (73-393) L Urine Color Pale yellow Urine Appearance Clear Urine pH 5 (4.5-8.0) Urine Specific [place] 1.020 (1.005-1.035) Urine Protein 2+ (NEGATIVE) H Urine Glucose (UA) 4+ (NEGATIVE) H Urine Ketones 4+ (NEGATIVE) H Urine Blood 1+ (NEGATIVE) H Urine Nitrite Negative (NEGATIVE) Urine Bilirubin Negative (NEGATIVE) Urine Urobilinogen Normal MG/DL (0.0-1.0) Urine Leukocyte Esterase Negative (NEGATIVE) Urine RBC 2-4 /HPF (0 - 0) H Urine WBC 0-2 /HPF (0 - 0) Urine Squamous Epithelial Cells None /LPF (NONE/OCC) Urine Bacteria Few /HPF (NONE) Arterial Blood pH 7.252 (7.350-7.450) Arterial Blood Partial Pressure CO2 30.0 mmHg (35.0-45.0) L Arterial Blood Partial Pressure O2 101.2 mmHg (75.0-100.0) H Arterial Blood HCO3 12.9 mmol/L (22.0-26.0) *L Arterial Blood Oxygen Saturation 97.6 % (95-100) Arterial Blood Base Excess -12.8 (-2-2) *L Avel Test Positive Test 10/19/18 02:00 10/19/18 06:01 Sodium Level 136 MMOL/L (136-145) 135 MMOL/L (136-145) L Potassium Level 4.6 MMOL/L (3.5-5.1) 4.2 MMOL/L (3.5-5.1) Chloride Level 102 MMOL/L (98-107) 102 MMOL/L (98-107) Carbon Dioxide Level 15 MMOL/L (21-32) L 20 MMOL/L (21-32) L Anion Gap 19 mmol/L (5-15) H 13 mmol/L (5-15) Blood Urea Nitrogen 10 mg/dL (7-18) 7 mg/dL (7-18) Creatinine 1.2 MG/DL (0.55-1.30) 1.2 MG/DL (0.55-1.30) Estimat Glomerular Filtration Rate > 60 mL/min (>60) > 60 mL/min (>60) Glucose Level 180 MG/DL (74-106) H 206 MG/DL (74-106) H Calcium Level 8.8 MG/DL (8.5-10.1) 7.8 MG/DL (8.5-10.1) L White Blood Count 17.2 K/UL (4.8-10.8) H Red Blood Count 5.22 M/UL (4.70-6.10) Hemoglobin 14.9 G/DL (14.2-18.0) Hematocrit 44.3 % (42.0-52.0) Mean Corpuscular Volume 85 FL (80-99) Mean Corpuscular Hemoglobin 28.6 PG (27.0-31.0) Mean Corpuscular Hemoglobin Concent 33.6 G/DL (32.0-36.0) Red Cell Distribution Width 12.6 % (11.6-14.8) Platelet Count 216 K/UL (150-450) Mean Platelet Volume 9.0 FL (6.5-10.1) Neutrophils (%) (Auto) 84.6 % (45.0-75.0) H Lymphocytes (%) (Auto) 9.4 % (20.0-45.0) L Monocytes (%) (Auto) 5.3 % (1.0-10.0) Eosinophils (%) (Auto) 0.1 % (0.0-3.0) Basophils (%) (Auto) 0.6 % (0.0-2.0) Hemoglobin A1c 9.8 % (4.3-6.0) H Jose Waldron MD Oct 19, 2018 09:27
[2018-10-19 11:36] LABS: ANION GAP 10 mmol/L (5-15); BLOOD UREA NITROGEN 7 mg/dL (7-18); CALCIUM 8.4 MG/DL (8.5-10.1); CARBON DIOXIDE 23 MMOL/L (21-32); CHLORIDE 104 MMOL/L (98-107); CREATININE 1.1 MG/DL (0.55-1.30); POTASSIUM 3.8 MMOL/L (3.5-5.1); SODIUM 137 MMOL/L (136-145)
[2018-10-19] MEDS: NovoLOG Insulin Flexpen SUBQ SCH ×2 (12:15→16:49)
[2018-10-19 14:46] LABS: ANION GAP 9 mmol/L (5-15); BLOOD UREA NITROGEN 7 mg/dL (7-18); CALCIUM 8.6 MG/DL (8.5-10.1); CARBON DIOXIDE 25 MMOL/L (21-32); CHLORIDE 104 MMOL/L (98-107); POTASSIUM 3.6 MMOL/L (3.5-5.1); SODIUM 138 MMOL/L (136-145)
--- NOTE | 2018-10-19 15:22 | General Progress Note ---
Assessment/Plan Assessment/Plan DKA, resolving -AG closed -transfer out of ICU -started on Levemir -continue IV fluids -check BMP in AM -likely DC home tomorrow Full Code Ambulation for VTE Prophylaxis Subjective Date patient seen: Oct 19, 2018 Time patient seen: 08:12 ROS Limited/Unobtainable: No Constitutional: Denies: chills, fever Cardiovascular: Denies: chest pain Respiratory: Denies: cough Gastrointestinal/Abdominal: Denies: abdomen distended, abdominal pain, diarrhea Neurologic/Psychiatric: Denies: anxiety Hematologic/Lymphatic: Denies: anemia Allergies: Coded Allergies: No Known Allergies (Unverified , 03/27/14) Subjective Medicine follow up for DKA, feels much better today. AG closed. Objective Last 24 Hour Vital Signs Date Time Temp Pulse Resp B/P (MAP) Pulse Ox O2 Delivery O2 Flow Rate FiO2 10/19/18 14:00 85 14 125/68 (87) 100 10/19/18 13:00 87 14 121/62 (81) 100 10/19/18 12:00 86 10/19/18 12:00 98.0 87 14 118/53 (74) 100 10/19/18 12:00 Room Air 10/19/18 11:00 91 14 109/49 (69) 100 10/19/18 10:00 86 14 115/53 (73) 100 10/19/18 09:00 99 14 117/50 (72) 100 10/19/18 08:00 Room Air 10/19/18 08:00 97.9 93 13 122/64 (83) 99 10/19/18 08:00 93 10/19/18 07:00 90 13 113/59 (77) 100 10/19/18 06:00 92 13 138/68 (91) 100 10/19/18 05:00 96 13 107/53 (71) 99 10/19/18 04:12 100 10/19/18 04:00 Room Air 10/19/18 04:00 99.0 96 13 116/59 (78) 100 10/19/18 03:00 92 14 107/52 (70) 100 10/19/18 02:00 98 19 137/63 (87) 100 10/19/18 01:00 101 14 136/62 (86) 99 10/19/18 00:00 98.9 113 15 122/63 (82) 99 10/19/18 00:00 Room Air 10/18/18 23:45 132 10/18/18 23:00 111 16 140/60 (86) 100 10/18/18 22:00 114 16 119/63 (81) 100 10/18/18 21:00 116 10/18/18 21:00 100.0 107 16 135/62 (86) 100 10/18/18 20:45 Room Air 10/18/18 20:30 97.8 104 15 148/74 100 Room Air 10/18/18 20:03 97.8 104 15 148/74 100 Room Air 10/18/18 18:45 97.8 103 18 133/85 100 Room Air 10/18/18 17:19 97.8 10/18/18 17:15 97.7 106 16 135/73 100 Room Air 10/18/18 16:10 97.5 115 20 127/100 98 Room Air 10/18/18 15:30 112 20 129/77 99 Room Air 10/18/18 15:21 97.9 Intake and Output 10/18/18 10/19/18 19:00 07:00 Intake Total 2000 ml 1536.79 ml Output Total 1950 ml Balance 2000 ml -413.21 ml Intake Oral 0 ml IV Total 2000 ml 1536.79 ml Output Urine Total 1250 ml Emesis 700 ml # Voids 1 2 Laboratory Tests 10/18/18 15:50: Urine Color Pale yellow, Urine Appearance Clear, Urine pH 5, Urine Specific [place] 1.020, Urine Protein 2+H, Urine Glucose (UA) 4+H, Urine Ketones 4+H, Urine Blood 1+H, Urine Nitrite Negative, Urine Bilirubin Negative, Urine Urobilinogen Normal, Urine Leukocyte Esterase Negative, Urine RBC 2-4H, Urine WBC 0-2, Urine Squamous Epithelial Cells None, Urine Bacteria Few 10/18/18 22:15: Sodium Level 136, Potassium Level 4.5, Chloride Level 103, Carbon Dioxide Level 17L, Anion Gap 16H, Blood Urea Nitrogen 10, Creatinine 1.2, Estimat Glomerular Filtration Rate > 60, Glucose Level 184#H, Calcium Level 8.7 10/18/18 22:19: Arterial Blood pH 7.252L, Arterial Blood Partial Pressure CO2 30.0L, Arterial Blood Partial Pressure O2 101.2H, Arterial Blood HCO3 12.9*L, Arterial Blood Oxygen Saturation 97.6, Arterial Blood Base Excess -12.8*L, Avel Test Positive 10/19/18 02:00: Sodium Level 136, Potassium Level 4.6, Chloride Level 102, Carbon Dioxide Level 15L, Anion Gap 19H, Blood Urea Nitrogen 10, Creatinine 1.2, Estimat Glomerular Filtration Rate > 60, Glucose Level 180H, Calcium Level 8.8 10/19/18 06:01: White Blood Count 17.2H, Red Blood Count 5.22, Hemoglobin 14.9, Hematocrit 44.3 , Mean Corpuscular Volume 85, Mean Corpuscular Hemoglobin 28.6, Mean Corpuscular Hemoglobin Concent 33.6, Red Cell Distribution Width 12.6, Platelet Count 216, Mean Platelet Volume 9.0, Neutrophils (%) (Auto) 84.6H, Lymphocytes ( %) (Auto) 9.4L, Monocytes (%) (Auto) 5.3, Eosinophils (%) (Auto) 0.1, Basophils (%) (Auto) 0.6, Sodium Level 135L, Potassium Level 4.2, Chloride Level 102, Carbon Dioxide Level 20L, Anion Gap 13, Blood Urea Nitrogen 7, Creatinine 1.2, Estimat Glomerular Filtration Rate > 60, Glucose Level 206H, Hemoglobin A1c 9.8H , Calcium Level 7.8L 10/19/18 10:15: Sodium Level 137, Potassium Level 3.8, Chloride Level 104, Carbon Dioxide Level 23, Anion Gap 10, Blood Urea Nitrogen 7, Creatinine 1.1, Estimat Glomerular Filtration Rate > 60, Glucose Level 194H, Calcium Level 8.4L 10/19/18 14:20: Sodium Level 138, Potassium Level 3.6, Chloride Level 104, Carbon Dioxide Level 25, Anion Gap 9, Blood Urea Nitrogen 7, Creatinine 1.0, Estimat Glomerular Filtration Rate > 60, Glucose Level 168H, Calcium Level 8.6 Height (Feet): 5 Height (Inches): 10.00 Weight (Pounds): 131 General Appearance: no apparent distress, alert EENT: normal ENT inspection Neck: non-tender, normal alignment Cardiovascular: normal peripheral pulses Respiratory/Chest: chest wall non-tender, lungs clear Abdomen: normal bowel sounds, non tender, soft Extremities: normal range of motion, non-tender Neurologic: men's designer II-XII grossly normal, no motor/sensory deficits, alert, oriented x 3 Judson Dick MD Oct 19, 2018 15:22
[2018-10-19] MEDS ORDERED: Tubing IV Secondary IV ONE ×2 (15:43→20:34)
[2018-10-19] MEDS ORDERED: NS 275ml ONE ×2 (15:43→20:34)
[2018-10-19] MEDS ORDERED: traMADol 50mg tab ORAL PRN (19:00)
[2018-10-19] MEDS ORDERED: D5 1/2NS w/KCl 20mEq 1,000 ML IV SCH (19:00)
[2018-10-19] MEDS ORDERED: Morphine Sulfate 4mg/ml Inj (IV/IM USE ONLY) IVP PRN (19:00)
[2018-10-19] MEDS ORDERED: Morphine Sulfate 2mg/ml Inj IVP PRN (19:00)
[2018-10-19] MEDS ORDERED: Heparin 5000 units/ml inj SUBQ SCH ×2 (21:00)
[2018-10-19] MEDS ORDERED: NovoLOG Insulin Flexpen SUBQ SCH (21:00)
[2018-10-19] MEDS ORDERED: Piperacillin/Tazobactam 3.375 GM in NS 110 ML IVPB SCH (22:00)
--- NOTE | 2018-10-20 09:42 | Discharge Summary ---
Discharge Summary Discharge Summary _ DATE OF ADMISSION: 10/18/2018 DATE OF DISCHARGE: 10/19/2018 CONSULTANTS: Dr. Jose Waldron BRIEF HOSPITAL COURSE: Patient is a 22-year-old male, with history of diabetes x 3 years, presented with 1 day of intractable nausea, vomiting and diarrhea. He reported missing dose of Lantus the night prior. He denied any fever, chills, or any urinary symptoms. On evaluation at ED, blood work showed WBC of 25.6. Hemoglobin and hematocrit were stable. Glucose was elevated to 518. Anion gap of 29. CO2 15. Urinalysis showed 2+ protein, 4+ glucose, 4+ ketone, 1+ blood, negative for nitrites and leukocyte esterase. LFTs and lipase were normal. Abdominal x-ray did not show any acute findings. Abdominal and pelvic CT showed mild cystitis, otherwise, negative. He was started on insulin drip. He was admitted to ICU for DKA. He was given IV hydration. Patient was continued on insulin drip overnight. marketing specialist was consulted. Anion gap closed. HCO3 20, glucose 206. He was started on Levemir subcutaneous injections. He was eventually taken off insulin drip. He was transferred to [facility] floor. Full treatment was not carried out as patient left against medical advise. FINAL DIAGNOSES: Acute DKA, resolving Noncompliance with medical treatment as patient left AGAINST MEDICAL ADVICE DISPOSITION: Patient left against medical advise. I have been assigned to complete a discharge summary on this account, I was not involved with the patient's management. Erika Rai NP Oct 20, 2018 09:42
--- NOTE | 2018-10-20 23:37 | Cardiology Report ---
APPROVED REPORT EKG Measurement Heart [id number] Sinus tachycardia Right atrial enlargement Possible Lateral infarct, age undetermined Abnormal ECG
== END 2018-10-19 20:35 | disposition left against medical advice (07) | DRG 420 ==
LOC: EDBD 14:18 → EMR 14:54 → EDBEDREQ 15:44 → EDBEDREQSVC 15:44 → ICU 16:20 → EDBEDREQ 17:50 → 3E 10-19 19:13
DX: E10.10 Type 1 diabetes mellitus with ketoacidosis without coma (principal); E86.0 Dehydration; Z53.21 Procedure and treatment not carried out due to patient leaving prior to being seen by health care provider; Z79.4 Long term (current) use of insulin; Z91.14 Patient's other noncompliance with medication regimen
CPT/HCPCS: 36415; 36600; 74018; 74176; 80048; 80053; 81003; 82248; 82803; 82962; 83036; 83690; 85007; 85025; 87040; 87081; 87086; 93005; 96361; 96365; 96366; 96375; 96376; 99291; J1815; J2405; S5561

== ENCOUNTER 2018-12-27 06:53 | Inpatient (IN) | payer OTHER ==
[2018-12-27] VITALS (18 sets, daily range): BP systolic 94–141; BP diastolic 44–92
[~2018-12-27] VITALS: Ht 172.7 cm; Wt 63.5 kg
[~2018-12-27 06:53] MED LIST changes: +[UNRECOGNIZED DRUG - OTHER] SUBQ
[2018-12-27] MEDS ORDERED: Capsaicin 0.075% Cream TOPIC ONE (07:15)
[2018-12-27] MEDS ORDERED: Morphine Sulfate 4mg/ml Inj (IV USE ONLY) IVP ONE ×2 (07:15→10:15)
--- NOTE | 2018-12-27 07:18 | Emergency Room Report ---
History of Present Illness General Chief Complaint: Abdominal Pain Source: Patient Present Illness HPI This patient is well-known to [facility]. He has a history of medication noncompliance. He has a history of type 1 diabetes and is regularly in DKA. He presents today with nausea, vomiting and upper abdominal pain. He states that the refrigerator stopped working at his mom's home, however, after discussion with the mom she states this is false. He denies recent illness. He denies fever or chills. He denies chest pain or shortness of breath. He denies dysuria or hematuria. He has no other complaints. Allergies: Coded Allergies: No Known Allergies (Unverified , 03/27/14) Patient History Past Medical History: see triage record, DM, asthma Reviewed Nursing Documentation: PMH: Agreed; PSxH: Agreed Nursing Documentation-PMH Hx Cardiac Problems: No Hx Asthma: Yes Hx Diabetes: Yes - DM Type 1 Hx Cancer: No Hx Neurological Problems: No Review of Systems All Other Systems: negative except mentioned in HPI Physical Exam Vital Signs Date Time Temp Pulse Resp B/P (MAP) Pulse Ox O2 Delivery O2 Flow Rate FiO2 12/27/18 06:59 97.2 106 30 143/94 98 Room Air Sp02 EP Interpretation: reviewed, normal General Appearance: no apparent distress, alert, GCS 15, non-toxic Head: normocephalic, atraumatic Eyes: bilateral eye normal inspection, bilateral eye PERRL ENT: hearing grossly normal, normal pharynx, no angioedema, normal voice Neck: full range of motion, supple/symm/no masses Respiratory: chest non-tender, lungs clear, normal breath sounds, no respiratory distress, no retraction, no accessory muscle use, speaking full sentences Cardiovascular #1: no edema, tachycardia Gastrointestinal: normal bowel sounds, soft, non-distended, no guarding, no rebound, tenderness - TTP in the epigastrium Rectal: deferred Musculoskeletal: back normal, gait/station normal, normal range of motion, non- tender Neurologic: alert, oriented x3, responsive, motor strength/tone normal, sensory intact, speech normal Psychiatric: judgement/insight normal, memory normal, mood/affect normal, no suicidal/homicidal ideation Skin: normal color, no rash, warm/dry, well hydrated Medical Decision Making Diagnostic Impression: Primary Impression: Diabetic ketoacidosis Additional Impressions: Dehydration ANA (acute kidney injury) ER Course This patient presents with DKA. He also has findings consistent with dehydration hydration and acute kidney injury. This patient has a history of medication noncompliance. Ears no evidence of infection. The patient was hydrated aggressively and started on an insulin drip and admitted to the ICU. This patient is critically ill. This patient required complex medical decision- making, aggressive intervention, extensive laboratory workup and monitoring. Critical care time: 40 minutes. Laboratory Tests Test 12/27/18 07:14 White Blood Count 18.7 K/UL (4.8-10.8) H Red Blood Count 6.43 M/UL (4.70-6.10) H Hemoglobin 18.1 G/DL (14.2-18.0) *H Hematocrit 56.4 % (42.0-52.0) H Mean Corpuscular Volume 88 FL (80-99) Mean Corpuscular Hemoglobin 28.1 PG (27.0-31.0) Mean Corpuscular Hemoglobin Concent 32.0 G/DL (32.0-36.0) Red Cell Distribution Width 13.2 % (11.6-14.8) Platelet Count 284 K/UL (150-450) Mean Platelet Volume 9.7 FL (6.5-10.1) Neutrophils (%) (Auto) % (45.0-75.0) Lymphocytes (%) (Auto) % (20.0-45.0) Monocytes (%) (Auto) % (1.0-10.0) Eosinophils (%) (Auto) % (0.0-3.0) Basophils (%) (Auto) % (0.0-2.0) Neutrophils % (Manual) Pending Lymphocytes % (Manual) Pending Platelet Estimate Pending Platelet Morphology Pending Sodium Level 135 MMOL/L (136-145) L Potassium Level 4.7 MMOL/L (3.5-5.1) Chloride Level 91 MMOL/L (98-107) L Carbon Dioxide Level 15 MMOL/L (21-32) L Anion Gap 29 mmol/L (5-15) H Blood Urea Nitrogen 14 mg/dL (7-18) Creatinine 1.6 MG/DL (0.55-1.30) H Estimate Glomerular Filtration Rate > 60 mL/min (>60) Glucose Level 417 MG/DL (74-106) H Calcium Level 10.3 MG/DL (8.5-10.1) H Magnesium Level 1.8 MG/DL (1.8-2.4) Total Bilirubin 1.5 MG/DL (0.2-1.0) H Direct Bilirubin 0.2 MG/DL (0.0-0.3) Aspartate Amino Transferase (AST) 33 U/L (15-37) Alanine Aminotransferase (ALT) 38 U/L (12-78) Alkaline Phosphatase 177 U/L (46-116) H Total Protein 10.1 G/DL (6.4-8.2) H Albumin 5.2 G/DL (3.4-5.0) H Globulin 4.9 g/dL Albumin/Globulin Ratio 1.1 (1.0-2.7) Lipase 40 U/L (73-393) L Acetone Level Positive-small (NEGATIVE) EKG Diagnostic Results Rate: normal Rhythm: NSR ST Segments: no acute changes Rhythm Strip Diag. Results EP Interpretation: yes Rate: 90's Rhythm: NSR, no PVC's, no ectopy Last Vital Signs Date Time Temp Pulse Resp B/P (MAP) Pulse Ox O2 Delivery O2 Flow Rate FiO2 12/27/18 06:59 97.2 106 30 143/94 98 Room Air Disposition: ADMITTED INPATIENT Condition: Critical Nelsy Heard DO Dec 27, 2018 07:18
[2018-12-27 07:22] LABS: HEMATOCRIT 56.4 % (42.0-52.0); MEAN CORPUSCULAR VOLUME 88 FL (80-99); PLATELET COUNT 284 K/UL (150-450); RED BLOOD COUNT 6.43 M/UL (4.70-6.10); RED CELL DISTRIBUTION WIDTH 13.2 % (11.6-14.8); WHITE BLOOD COUNT 18.7 K/UL (4.8-10.8)
[2018-12-27 07:29] LABS: HEMOGLOBIN 18.1 G/DL (14.2-18.0)
[2018-12-27 07:33] LABS: ANION GAP 29 mmol/L (5-15); BLOOD UREA NITROGEN 14 mg/dL (7-18); CALCIUM 10.3 MG/DL (8.5-10.1); CARBON DIOXIDE 15 MMOL/L (21-32); CHLORIDE 91 MMOL/L (98-107); CREATININE 1.6 MG/DL (0.55-1.30); POTASSIUM 4.7 MMOL/L (3.5-5.1); SODIUM 135 MMOL/L (136-145)
[2018-12-27 07:43] LABS: ALANINE AMINOTRANSFERASE 38 U/L (12-78); ALBUMIN 5.2 G/DL (3.4-5.0); ALBUMIN/GLOBULIN RATIO 1.1 (1.0-2.7); ALKALINE PHOSPHATASE 177 U/L (46-116); ASPARTATE AMINO TRANSFERASE 33 U/L (15-37); BILIRUBIN,TOTAL 1.5 MG/DL (0.2-1.0)
[2018-12-27 07:45] LABS: BILIRUBIN,DIRECT 0.2 MG/DL (0.0-0.3)
[2018-12-27 08:31] LABS: APPEARANCE,URINE CLEAR; BILIRUBIN, URINE NEGATIVE (NEGATIVE); COLOR,URINE PALE YELLOW; GLUCOSE, URINE (UA) 4+ (NEGATIVE); KETONES,URINE 4+ (NEGATIVE); LEUKOCYTE ESTERASE ,URINE NEGATIVE (NEGATIVE); NITRITE,URINE NEGATIVE (NEGATIVE); PH,URINE 5 (4.5-8.0); PROTEIN,URINE 2+ (NEGATIVE); UROBILINOGEN,URINE NORMAL MG/DL (0.0-1.0)
[2018-12-27 09:21] LABS: ANION GAP 24 mmol/L (5-15); BLOOD UREA NITROGEN 13 mg/dL (7-18); CALCIUM 7.6 MG/DL (8.5-10.1); CARBON DIOXIDE 12 MMOL/L (21-32); CHLORIDE 104 MMOL/L (98-107); CREATININE 1.2 MG/DL (0.55-1.30); POTASSIUM 5.4 MMOL/L (3.5-5.1); SODIUM 140 MMOL/L (136-145)
--- NOTE | 2018-12-27 10:59 | History and Physical ---
History of Present Illness General Date patient seen: Dec 27, 2018 Time patient seen: 10:30 Reason for Hospitalization: Abdominal Pain Present Illness HPI 23 year old man with insulin dependent diabetes mellitus, history of noncompliance with medications, frequent admissions for DKA. He presented today with nausea, vomiting and upper abdominal pain. He states that the refrigerator stopped working at his mom's home, however, the mother states this is false. He denies recent illness. He denies fever or chills. He denies chest pain or shortness of breath. He denies dysuria or hematuria. He has no other complaints. Patient was found to be in DKA, given 4 liters of NS and started on insulin drip. Patient is being admitted to the ICU for further management of DKA. PMHx: IDDM Social Hx: No alcohol or tobacco Family Hx: No CAD, stroke Allergies: Coded Allergies: No Known Allergies (Unverified , 03/27/14) Medication History Scheduled Insulin Glargine (Lantus), 28 UNITS SUBQ BEDTIME Insulin Lispro (Humalog), 8 UNITS SUBQ TID Scheduled PRN Albuterol Sulfate* (Albuterol Sulfate Mdi*), 2 PUFF INH Q4H PRN for For Cough Ondansetron (Zofran), 4 MG ORAL Q6H PRN for Nausea & Vomiting Miscellaneous Medications [insluin], SUBQ, (Reported) Patient History Healthcare decision maker Resuscitation status Advanced Directive on File Review of Systems Constitutional: Reports: malaise; Denies: fever Eye: Denies: eye pain, blurred vision ENT: Denies: ear pain Respiratory: Denies: cough Cardiovascular: Denies: chest pain Gastrointestinal: Reports: abdominal pain, nausea, vomiting; Denies: constipation, diarrhea Genitourinary: Denies: dysuria Musculoskeletal: Denies: back pain Skin: Denies: rash Neurological: Denies: headache Physical Exam General Appearance: no apparent distress, alert HEENT: normocephalic, atraumatic, anicteric Neck: normal alignment, supple Respiratory/Chest: chest wall non-tender, lungs clear, normal breath sounds Cardiovascular/Chest: normal rate, regular rhythm Abdomen: non tender, soft, no organomegaly, no mass Extremities: non-tender, normal inspection Skin Exam: normal pigmentation, warm/dry 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, no motor/sensory deficits Last 24 Hour Vital Signs Date Time Temp Pulse Resp B/P (MAP) Pulse Ox O2 Delivery O2 Flow Rate FiO2 12/27/18 08:31 97.1 99 17 126/72 100 Room Air 21 12/27/18 08:11 97.2 98 18 119/81 100 Room Air 21 12/27/18 07:44 97.2 99 18 117/82 100 Room Air 21 12/27/18 07:41 97.2 12/27/18 07:33 97.2 99 17 141/92 100 Room Air 21 12/27/18 07:32 99 17 Room Air 21 12/27/18 06:59 97.2 106 30 143/94 98 Room Air Laboratory Tests Test 12/27/18 07:14 12/27/18 08:12 12/27/18 08:54 White Blood Count 18.7 K/UL (4.8-10.8) H Red Blood Count 6.43 M/UL (4.70-6.10) H Hemoglobin 18.1 G/DL (14.2-18.0) *H Hematocrit 56.4 % (42.0-52.0) H Mean Corpuscular Volume 88 FL (80-99) Mean Corpuscular Hemoglobin 28.1 PG (27.0-31.0) Mean Corpuscular Hemoglobin Concent 32.0 G/DL (32.0-36.0) Red Cell Distribution Width 13.2 % (11.6-14.8) Platelet Count 284 K/UL (150-450) Mean Platelet Volume 9.7 FL (6.5-10.1) Neutrophils (%) (Auto) % (45.0-75.0) Lymphocytes (%) (Auto) % (20.0-45.0) Monocytes (%) (Auto) % (1.0-10.0) Eosinophils (%) (Auto) % (0.0-3.0) Basophils (%) (Auto) % (0.0-2.0) Differential Total Cells Counted 100 Neutrophils % (Manual) 92 % (45-75) H Lymphocytes % (Manual) 4 % (20-45) L Monocytes % (Manual) 4 % (1-10) Eosinophils % (Manual) 0 % (0-3) Basophils % (Manual) 0 % (0-2) Band Neutrophils 0 % (0-8) Platelet Estimate Adequate Platelet Morphology Normal Sodium Level 135 MMOL/L (136-145) L 140 MMOL/L (136-145) Potassium Level 4.7 MMOL/L (3.5-5.1) 5.4 MMOL/L (3.5-5.1) H Chloride Level 91 MMOL/L (98-107) L 104 MMOL/L (98-107) Carbon Dioxide Level 15 MMOL/L (21-32) L 12 MMOL/L (21-32) L Anion Gap 29 mmol/L (5-15) H 24 mmol/L (5-15) H Blood Urea Nitrogen 14 mg/dL (7-18) 13 mg/dL (7-18) Creatinine 1.6 MG/DL (0.55-1.30) H 1.2 MG/DL (0.55-1.30) Estimat Glomerular Filtration Rate > 60 mL/min (>60) > 60 mL/min (>60) Glucose Level 417 MG/DL (74-106) H 356 MG/DL (74-106) H Calcium Level 10.3 MG/DL (8.5-10.1) H 7.6 MG/DL (8.5-10.1) #L Magnesium Level 1.8 MG/DL (1.8-2.4) Total Bilirubin 1.5 MG/DL (0.2-1.0) H Direct Bilirubin 0.2 MG/DL (0.0-0.3) Aspartate Amino Transf (AST/SGOT) 33 U/L (15-37) Alanine Aminotransferase (ALT/SGPT) 38 U/L (12-78) Alkaline Phosphatase 177 U/L (46-116) H Total Protein 10.1 G/DL (6.4-8.2) H Albumin 5.2 G/DL (3.4-5.0) H Globulin 4.9 g/dL Albumin/Globulin Ratio 1.1 (1.0-2.7) Lipase 40 U/L (73-393) L Acetone Level Positive-small (NEGATIVE) Urine Color Pale yellow Urine Appearance Clear Urine pH 5 (4.5-8.0) Urine Specific Hubert 1.020 (1.005-1.035) Urine Protein 2+ (NEGATIVE) H Urine Glucose (UA) 4+ (NEGATIVE) H Urine Ketones 4+ (NEGATIVE) H Urine Blood Negative (NEGATIVE) Urine Nitrite Negative (NEGATIVE) Urine Bilirubin Negative (NEGATIVE) Urine Urobilinogen Normal MG/DL (0.0-1.0) Urine Leukocyte Esterase Negative (NEGATIVE) Urine RBC 0-2 /HPF (0 - 0) H Urine WBC 0-2 /HPF (0 - 0) Urine Squamous Epithelial Cells Occasional /LPF Urine Bacteria Occasional /HPF (NONE) Urine Opiates Screen Negative (NEGATIVE) Urine Barbiturates Screen Negative (NEGATIVE) Phencyclidine (PCP) Screen Negative (NEGATIVE) Urine Amphetamines Screen Negative (NEGATIVE) Urine Benzodiazepines Screen Negative (NEGATIVE) Urine Cocaine Screen Negative (NEGATIVE) Urine Marijuana (THC) Screen Positive (NEGATIVE) H Height (Feet): 5 Height (Inches): 8.00 Weight (Pounds): 140 Medications Current Medications Medications (Trade) Dose Ordered Sig/Arianne Route PRN Reason Start Time Stop Time Status Last Admin Dose Admin Dextrose (Dextrose 50%) 25 ml Q30M PRN IV Hypoglycemia 12/27/18 10:25 01/26/19 10:24 Dextrose (Dextrose 50%) 50 ml Q30M PRN IV Hypoglycemia 12/27/18 10:25 01/26/19 10:24 Heparin Sodium (Porcine) (Heparin 5000 units/ml) 5,000 units EVERY 12 HOURS SUBQ 12/27/18 21:00 01/26/19 20:59 Hydromorphone HCl (Dilaudid) 2 mg Q4H PRN IVP Severe Pain (Pain Scale 7-10) 12/27/18 10:26 01/03/19 10:25 Ondansetron HCl (Zofran) 4 mg Q6H PRN IVP Nausea & Vomiting 12/27/18 10:25 01/26/19 10:24 Pantoprazole (Protonix) 40 mg DAILY IV 12/28/18 09:00 01/27/19 08:59 Sodium Chloride 1,000 ml @ 15 mls/hr Q24H IV 12/27/18 10:25 01/26/19 10:24 Assessment/Plan Assessment: #Abdominal pain #Intractable nausea and vomiting #Diabetic ketoacidosis -admit to ICU -continue insulin drip and check finger sticks q1h -continue IV fluids -IV Zofran and morphine as needed -check q4h BMP -monitor K levels closely, started potassium replacement in IV fluids once potassium is < 5.4 -start home Lantus once able to eat and overlap with insulin drip -Endocrinology eval Judson Alfredo MD Dec 27, 2018 10:59
[2018-12-27 11:39] LABS: ANION GAP 24 mmol/L (5-15); BLOOD UREA NITROGEN 11 mg/dL (7-18); CALCIUM 8.1 MG/DL (8.5-10.1); CARBON DIOXIDE 13 MMOL/L (21-32); CHLORIDE 104 MMOL/L (98-107); CREATININE 1.3 MG/DL (0.55-1.30); POTASSIUM 4.9 MMOL/L (3.5-5.1); SODIUM 140 MMOL/L (136-145)
[2018-12-27] MEDS: Insulin Rate Change 1 Each MISC PRN ×9 (11:42→22:17)
[2018-12-27] MEDS ORDERED: Insulin Human Regular 100units/ml 3ml IV PRN ×2 (11:45)
[2018-12-27 15:37] LABS: ANION GAP 18 mmol/L (5-15); BLOOD UREA NITROGEN 9 mg/dL (7-18); CALCIUM 8.2 MG/DL (8.5-10.1); CARBON DIOXIDE 16 MMOL/L (21-32); CHLORIDE 103 MMOL/L (98-107); POTASSIUM 4.5 MMOL/L (3.5-5.1); SODIUM 137 MMOL/L (136-145)
[2018-12-27] MEDS ORDERED: D5 1/2NS w/KCl 20mEq 1,000 ML IV SCH (17:15)
[2018-12-27 19:41] LABS: ANION GAP 15 mmol/L (5-15); BLOOD UREA NITROGEN 8 mg/dL (7-18); CALCIUM 8.2 MG/DL (8.5-10.1); CARBON DIOXIDE 20 MMOL/L (21-32); CHLORIDE 103 MMOL/L (98-107); POTASSIUM 3.8 MMOL/L (3.5-5.1); SODIUM 138 MMOL/L (136-145)
[2018-12-27] MEDS: Heparin 5000 units/ml inj SUBQ SCH (21:06)
[2018-12-27 23:33] LABS: ANION GAP 14 mmol/L (5-15); BLOOD UREA NITROGEN 8 mg/dL (7-18); CALCIUM 8.5 MG/DL (8.5-10.1); CARBON DIOXIDE 22 MMOL/L (21-32); CHLORIDE 103 MMOL/L (98-107); POTASSIUM 3.4 MMOL/L (3.5-5.1); SODIUM 138 MMOL/L (136-145)
[2018-12-28] VITALS (14 sets, daily range): BP systolic 95–137; BP diastolic 46–78
[2018-12-28] MEDS: Insulin Rate Change 1 Each MISC PRN ×3 (00:10→05:33)
[2018-12-28] MEDS ORDERED: D5 1/2NS w/KCl 40meq 1000ml 1,000 ML IV SCH (00:15)
[2018-12-28 05:08] LABS: BASOPHILS % (AUTO) 0.6 % (0.0-2.0); EOSINOPHILS % (AUTO) 0.4 % (0.0-3.0); HEMATOCRIT 40.5 % (42.0-52.0); HEMOGLOBIN 13.5 G/DL (14.2-18.0); LYMPHOCYTES % (AUTO) 23.8 % (20.0-45.0); MEAN CORPUSCULAR VOLUME 86 FL (80-99); MONOCYTES % (AUTO) 6.7 % (1.0-10.0); NEUTROPHILS % (AUTO) 68.5 % (45.0-75.0); PLATELET COUNT 221 K/UL (150-450); RED BLOOD COUNT 4.73 M/UL (4.70-6.10); RED CELL DISTRIBUTION WIDTH 12.8 % (11.6-14.8)
[2018-12-28 05:16] LABS: ANION GAP 8 mmol/L (5-15); BLOOD UREA NITROGEN 6 mg/dL (7-18); CALCIUM 8.1 MG/DL (8.5-10.1); CARBON DIOXIDE 24 MMOL/L (21-32); CHLORIDE 107 MMOL/L (98-107); CREATININE 0.9 MG/DL (0.55-1.30); POTASSIUM 3.5 MMOL/L (3.5-5.1); SODIUM 139 MMOL/L (136-145)
[2018-12-28 05:53] LABS: ALANINE AMINOTRANSFERASE 26 U/L (12-78); ALBUMIN 3.2 G/DL (3.4-5.0); ALKALINE PHOSPHATASE 106 U/L (46-116); ASPARTATE AMINO TRANSFERASE 20 U/L (15-37); BILIRUBIN,DIRECT 0.1 MG/DL (0.0-0.3); BILIRUBIN,TOTAL 0.8 MG/DL (0.2-1.0)
[2018-12-28] MEDS: NovoLOG Insulin Flexpen SUBQ SCH ×4 (07:00→11:30)
[2018-12-28 07:35] LABS: ANION GAP 9 mmol/L (5-15); BLOOD UREA NITROGEN 5 mg/dL (7-18); CALCIUM 8.2 MG/DL (8.5-10.1); CARBON DIOXIDE 24 MMOL/L (21-32); CHLORIDE 106 MMOL/L (98-107); CREATININE 0.9 MG/DL (0.55-1.30); POTASSIUM 3.8 MMOL/L (3.5-5.1); SODIUM 139 MMOL/L (136-145)
[2018-12-28] MEDS ORDERED: NS w/KCl 20mEq 1000ml 1,000 ML IV SCH (08:00)
[2018-12-28] MEDS: Heparin 5000 units/ml inj SUBQ SCH (08:19)
[2018-12-28] MEDS ORDERED: Levemir Flexpen SUBQ SCH (09:00)
[2018-12-28] MEDS ORDERED: Pantoprazole Inj IV SCH (09:00)
--- NOTE | 2018-12-28 12:48 | Discharge Summary ---
Discharge Summary Hospital Course Date of Admission Dec 27, 2018 at 08:13 Date of Discharge Admitting Diagnosis diabetic keto acidosis DANIA Weinstein is a 23 year old male who was admitted on Dec 27, 2018 at 08:13 for Diabetic Keto Acidosis Hospital Course #Abdominal pain, resolved #Intractable nausea and vomiting, resolved #Diabetic ketoacidosis, resolved #ANA due to dehydration, present on admission, resolved -admited to ICU -treated with insulin drip and IV fluids with resolution of DKA and ANA -Patient tolerating regular diet -Will discharge home with script for rea, importance of compliance discussed with the patient Time spent in preparing discharge was 35 minutes Discharge Discharge Disposition Patient was discharged to Home Discharge Diagnoses: (1) DKA (diabetic ketoacidoses) (2) ANA (acute kidney injury) Judson Dick MD Dec 28, 2018 12:48
[2018-12-28] MEDS ORDERED: Tubing IV Secondary IV ONE (13:39)
[2018-12-28] MEDS ORDERED: 1/2 NS 1000ml IV ONE (13:39)
--- NOTE | 2018-12-28 18:30 | Consultation ---
DATE OF CONSULTATION: 12/28/2018 ENDOCRINOLOGY CONSULTATION CONSULTING PHYSICIAN: Ronnie Yuen M.D. REFERRING PHYSICIAN: Dr Judson Reed REASON FOR CONSULTATION: Diabetic ketoacidosis. HISTORY OF PRESENT ILLNESS: This is a 23-year-old male with numerous previous admissions to [facility] with history of type 1 diabetic with noncompliance with medication, presented with nausea, vomiting, and abdominal pain, worsening DKA, admitted to the ICU, and treated with IV fluids and IV insulin this morning was started yesterday. PAST MEDICAL HISTORY: Significant for diabetes. PAST SURGICAL HISTORY: None. MEDICATIONS OUTPATIENT: Reviewed and reconciled. ALLERGIES TO MEDICATION: None. SOCIAL HISTORY: No smoking, alcohol, or drug use. FAMILY HISTORY: Noncontributory. LABORATORY VALUES: Sodium 139, potassium 3.5, chloride 104, bicarb 24, BUN 6, and creatinine 0.9. PHYSICAL EXAMINATION: VITAL SIGNS: Blood pressure 102/46, pulse 99, temperature 98 degrees, and respiratory rate 16. HEENT: Pupils are equal and reactive to light. Sclerae anicteric. NECK: No JVD. No thyromegaly. LUNGS: Clear. HEART: Regular rate and rhythm. ABDOMEN: Positive bowel sounds. EXTREMITIES: No clubbing, cyanosis, or edema. DIAGNOSES: 1. Diabetic ketoacidosis, resolved. 2. Type 1 diabetes. 3. Noncompliance. PLAN: 1. Discontinue intravenous insulin. 2. We will start Levemir 24 units daily. 3. Start NovoLog 8 units before each meal. 4. Insulin scale at bedtime. 5. Change intravenous fluid to NS at 100 mL/h. 6. Follow up electrolytes. Thank you, Dr. Reed for the courtesy of this consultation. I will follow along the patient with you during this stay. Ronnie Yuen M.D. DR: ART JOB#: [id number] CC: SCOTT
--- NOTE | 2019-01-01 12:09 | Cardiology Report ---
APPROVED REPORT EKG Measurement Heart [id number] ID [id number] Normal sinus rhythm Biatrial enlargement Possible Lateral infarct, age undetermined Abnormal ECG
== END 2018-12-28 13:40 | disposition home or self-care (01) | DRG 420 ==
LOC: EMR 07:05 → ICU 08:13 → EDBEDREQ 08:57
DX: E10.10 Type 1 diabetes mellitus with ketoacidosis without coma (principal); N17.9 Acute kidney failure, unspecified; E86.0 Dehydration; Z91.14 Patient's other noncompliance with medication regimen; Z79.4 Long term (current) use of insulin
CPT/HCPCS: 36415; 80048; 80053; 80076; 80307; 81003; 82009; 82248; 82962; 83690; 83735; 85007; 85025; 87081; 93005; 96361; 96365; 96375; 96376; 99291; J1815; J2405; S5561

== ENCOUNTER 2019-04-12 09:19 | Inpatient (IN) | payer OTHER ==
[2019-04-12] VITALS (14 sets, daily range): BP systolic 90–133; BP diastolic 52–101
[~2019-04-12] VITALS: Ht 172.7 cm; Wt 62.6 kg
--- NOTE | 2019-04-12 09:25 | NUR ---
ED Nurse Note: Pt came in from home due to lower abdominal pain with nausea/vomiting since yesterday. Pt stated he has hx of DM type 1 but has not taken his Insulin night dose x 2 days. Pain 10 chriss. AOx4, VSS chriss. Will cont to monitor.
--- NOTE | 2019-04-12 09:39 | Emergency Room Report ---
History of Present Illness General Chief Complaint: Abdominal Pain Source: Patient Present Illness HPI 23-year-old male history of type 1 diabetes presents with diffuse abdominal pain moderate severity, no aggravating or alleviating factors started 2 days ago , nausea, vomiting x2 days, patient has been skipping his nighttime insulin, he was pending refills, he denies any diarrhea, he does endorse using marijuana over the weekend, no chest pain no shortness of breath, no fever no chills, no cough no congestion, patient presents for evaluation Allergies: Coded Allergies: No Known Allergies (Unverified , 03/27/14) Patient History Past Medical History: see triage record Social History: Reports: drug use - Marijuana Reviewed Nursing Documentation: PMH: Agreed; PSxH: Agreed Nursing Documentation-PMH Past Medical History: No History, Except For Hx Asthma: Yes Hx Diabetes: Yes Hx Cancer: No Hx Neurological Problems: No Review of Systems Constitutional: Denies: chills, fever Eye: Denies: blurred vision, double vision ENT: Denies: throat pain, nasal discharge Respiratory: Denies: cough, shortness of breath Cardiovascular: Denies: chest pain, palpitations Gastrointestinal: Reports: abdominal pain, nausea, vomiting; Denies: diarrhea Genitourinary: Denies: dysuria, pain Musculoskeletal: Denies: back pain, muscle pain Skin: Denies: rash, lesions Neurological: Denies: headache, focal weakness Hematologic/Lymphatic: Denies: easy bleeding, easy bruising All Other Systems: negative except mentioned in HPI Physical Exam Vital Signs Date Time Temp Pulse Resp B/P (MAP) Pulse Ox O2 Delivery O2 Flow Rate FiO2 04/12/19 09:21 98.8 78 22 148/72 (97) 94 Room Air Sp02 EP Interpretation: reviewed, normal General Appearance: well appearing, alert, mild distress Head: normocephalic, atraumatic Eyes: bilateral eye PERRL, bilateral eye EOMI ENT: uvula midline, moist mucus membranes Neck: supple, thyroid normal, supple/symm/no masses Respiratory: lungs clear, no respiratory distress, no retraction, no accessory muscle use Cardiovascular #1: normal peripheral pulses, regular rate, rhythm, no edema, no gallop, no murmur Gastrointestinal: non tender, soft, no guarding, no rebound, other - Patient's abdomen is completely soft, nontender, however on slight palpation patient is endorsing pain however is not flexing Musculoskeletal: normal inspection Neurologic: alert, oriented x3 Psychiatric: anxious Skin: no rash, warm/dry Procedures Critical Care Time Critical Care Time Given the critical condition in which the patient arrived, the patient was immediately assessed by myself and the nurse, and cardiac monitoring initiated due to the potential for rapid decompensation of the patient's clinical condition. During the course of the patient's stay, I spent a considerable amount of time at the bedside performing serial re-evaluations of the patient's hemodynamic and clinical status because of the recognized potential threat to life or limb in this condition. I then had a chance to review not only all of the available current laboratory and radiographic studies obtained today, but I also reviewed old records available to me at the time. Additionally, any ancillary information available including camera engineer records were reviewed. Sequential vital signs were obtained. Critical Care time of 36 minutes was performed exclusive of billable procedures. He required insulin drip, fluid resuscitation, potassium supplementation, patient will be admitted to the ICU Medical Decision Making Diagnostic Impression: Primary Impression: DKA (diabetic ketoacidoses) Additional Impressions: High anion gap metabolic acidosis Dehydration ER Course 23-year-old male history of DKA presents with diffuse abdominal pain, patient has been off his nighttime insulin for 2 days, will obtain labs, EKG, chest x- ray, patient is also requesting to know what medications he is receiving by IV Patient most likely in DKA. Reglan improve motility, and for nausea, patient resuscitated with 2 L of fluid , insulin drip was started, reevaluation at 10:35 AM, patient improving significantly, reevaluation at 1105, patient remains stable. Spoke with Dr. Tang at 11:06AM patient unstable for transfer due to high anion gap Patient admitted to hospitalist Shannan Harper at 11:24AM Laboratory Tests Test 04/12/19 09:31 04/12/19 09:50 White Blood Count 14.0 K/UL (4.8-10.8) H Red Blood Count 5.93 M/UL (4.70-6.10) Hemoglobin 16.5 G/DL (14.2-18.0) Hematocrit 51.6 % (42.0-52.0) Mean Corpuscular Volume 87 FL (80-99) Mean Corpuscular Hemoglobin 27.8 PG (27.0-31.0) Mean Corpuscular Hemoglobin Concent 31.9 G/DL (32.0-36.0) L Red Cell Distribution Width 11.9 % (11.6-14.8) Platelet Count 290 K/UL (150-450) Mean Platelet Volume 8.6 FL (6.5-10.1) Neutrophils (%) (Auto) % (45.0-75.0) Lymphocytes (%) (Auto) % (20.0-45.0) Monocytes (%) (Auto) % (1.0-10.0) Eosinophils (%) (Auto) % (0.0-3.0) Basophils (%) (Auto) % (0.0-2.0) Differential Total Cells Counted 100 Neutrophils % (Manual) 91 % (45-75) H Lymphocytes % (Manual) 5 % (20-45) L Monocytes % (Manual) 2 % (1-10) Eosinophils % (Manual) 0 % (0-3) Basophils % (Manual) 1 % (0-2) Band Neutrophils 1 % (0-8) Platelet Estimate Adequate Platelet Morphology Normal Anisocytosis 1+ Sodium Level 136 MMOL/L (136-145) Potassium Level 4.1 MMOL/L (3.5-5.1) Chloride Level 91 MMOL/L (98-107) L Carbon Dioxide Level 15 MMOL/L (21-32) L Anion Gap 30 mmol/L (5-15) H Blood Urea Nitrogen 11 mg/dL (7-18) Creatinine 1.2 MG/DL (0.55-1.30) Estimate Glomerular Filtration Rate > 60 mL/min (>60) Glucose Level 329 MG/DL (74-106) H Calcium Level 10.6 MG/DL (8.5-10.1) H Magnesium Level 1.8 MG/DL (1.8-2.4) Total Bilirubin 1.3 MG/DL (0.2-1.0) H Direct Bilirubin 0.2 MG/DL (0.0-0.3) Aspartate Amino Transferase (AST) 19 U/L (15-37) Alanine Aminotransferase (ALT) 17 U/L (12-78) Alkaline Phosphatase 128 U/L (46-116) H Troponin I 0.000 ng/mL (0.000-0.056) Total Protein 9.5 G/DL (6.4-8.2) H Albumin 5.1 G/DL (3.4-5.0) H Globulin 4.4 g/dL Albumin/Globulin Ratio 1.2 (1.0-2.7) Lipase 28 U/L (73-393) L Acetone Level Positive-moderate (NEGATIVE) Venous Blood pH 7.227 Venous Blood Partial Pressure CO2 32.1 Venous Blood Partial Pressure O2 32.4 Venous Blood HCO3 13.1 Venous Blood Total Carbon Dioxide Pending Venous Bld O2 Saturation (Measured) Pending Venous Blood Oxygen Saturation 56.9 Venous Blood Base Excess -13.2 Methemoglobin Pending Sodium (Blood Gas) Pending EKG Diagnostic Results EKG Time: 09:46 EP Interpretation: SR, rate 81, QTc 464, diffuse ST elevation with TX depression Rate: normal Rhythm: NSR ST Segments: other - ST elevation with TX depression Other Impression Possible pericarditis versus early repolarization Chest X-Ray Diagnostic Results Chest X-Ray Diagnostic Results : Chest X-Ray Ordered: Yes # of Views/Limited/Complete: 1 View Indication: Other - epigastric pain EP Interpretation: Yes Interpretation: no consolidation, no effusion, no pneumothorax, no acute cardiopulmonary disease Impression: No acute disease Electronically Signed by: Noble Starks MD Last Vital Signs Date Time Temp Pulse Resp B/P (MAP) Pulse Ox O2 Delivery O2 Flow Rate FiO2 04/12/19 09:21 98.8 78 22 148/72 (97) 94 Room Air Disposition: ADMITTED INPATIENT Condition: Serious Noble Starks MD Apr 12, 2019 09:39
[2019-04-12] MEDS ORDERED: Metoclopramide 10mg/2ml Inj IVP ONE (09:45)
[2019-04-12] MEDS ORDERED: Levemir Flexpen SUBQ ONE (09:45)
[2019-04-12] MEDS ORDERED: DiphenhydrAMINE 50mg/ml Inj IVP ONE (09:45)
[2019-04-12 09:55] LABS: HEMATOCRIT 51.6 % (42.0-52.0); HEMOGLOBIN 16.5 G/DL (14.2-18.0); MEAN CORPUSCULAR VOLUME 87 FL (80-99); PLATELET COUNT 290 K/UL (150-450); RED BLOOD COUNT 5.93 M/UL (4.70-6.10); RED CELL DISTRIBUTION WIDTH 11.9 % (11.6-14.8)
[2019-04-12 10:29] LABS: ANION GAP 30 mmol/L (5-15); BLOOD UREA NITROGEN 11 mg/dL (7-18); CALCIUM 10.6 MG/DL (8.5-10.1); CARBON DIOXIDE 15 MMOL/L (21-32); CHLORIDE 91 MMOL/L (98-107); CREATININE 1.2 MG/DL (0.55-1.30); POTASSIUM 4.1 MMOL/L (3.5-5.1); SODIUM 136 MMOL/L (136-145)
[2019-04-12 10:39] LABS: ALANINE AMINOTRANSFERASE 17 U/L (12-78); ALBUMIN 5.1 G/DL (3.4-5.0); ALBUMIN/GLOBULIN RATIO 1.2 (1.0-2.7); ALKALINE PHOSPHATASE 128 U/L (46-116); ASPARTATE AMINO TRANSFERASE 19 U/L (15-37); BILIRUBIN,TOTAL 1.3 MG/DL (0.2-1.0)
[2019-04-12 10:40] LABS: BILIRUBIN,DIRECT 0.2 MG/DL (0.0-0.3)
--- NOTE | 2019-04-12 11:19 | NUR ---
ED Nurse Note: Novolin R 100Unit was started at 8.54 mls/hr at this time @ R forearm IV 20G. Pt tolerates well at this time.
--- NOTE | 2019-04-12 11:25 | NUR ---
ED Nurse Note: Pt cannot urinate at this time, RN will remind patient again.
[2019-04-12] MEDS ORDERED: Mylanta II UD 30ml ORAL PRN (12:45)
[2019-04-12] MEDS ORDERED: Insulin Human Regular 100units/ml 3ml IV PRN (12:45)
[2019-04-12] MEDS ORDERED: Albuterol/Ipratropium 3ml neb HHN PRN (12:45)
[2019-04-12] MEDS ORDERED: Dextrose 5%/Lactated Ringer's 1,000 ML IV SCH (13:00)
[2019-04-12 13:04] LABS: APPEARANCE,URINE CLEAR; BILIRUBIN, URINE NEGATIVE (NEGATIVE); COLOR,URINE PALE YELLOW; GLUCOSE, URINE (UA) 4+ (NEGATIVE); KETONES,URINE 4+ (NEGATIVE); LEUKOCYTE ESTERASE ,URINE NEGATIVE (NEGATIVE); NITRITE,URINE NEGATIVE (NEGATIVE); PH,URINE 6 (4.5-8.0); PROTEIN,URINE 2+ (NEGATIVE); UROBILINOGEN,URINE NORMAL MG/DL (0.0-1.0)
--- NOTE | 2019-04-12 13:45 | NUR ---
NURSE NOTES: Received the patient from VIKAS Campbell. Patient is awake, alert and orientedx4. SR noted on the monitor. Patient on room air, O2 sat 100%. No acute distress noted. Left forearm 20G and right AC 20G intact, running D5LR at 100ml/hr and insulin gtt at 8.54ml/hr. skin intact. Bed in lowest position, locked, side rails upx2. bed alarm on. call light within reach. Will continue to monitor.
[2019-04-12] MEDS: Insulin Human Regular 100units/ml 3ml IV PRN ×2 (14:10→17:17)
--- NOTE | 2019-04-12 14:10 | NUR ---
NURSE NOTES: BS 216 noted. On Insulin drip, Algorithm 1, running at 2ml/hr. 5 units regular insulin IVP given.
--- NOTE | 2019-04-12 14:39 | Pulmonolgy Critical Care Note ---
Critical Care - Asmt/Plan Problems: (1) High anion gap metabolic acidosis (2) DKA (diabetic ketoacidoses) (3) Dehydration (4) Nausea, vomiting, and diarrhea (5) Non-compliance (6) Leukocytosis (7) Abnormal LFTs Assessment/Plan: Continue insulin gtt until gap closed Change IVF to D51/2NSc20 KCl @ 150 q2 hour BMP, q1 hour accucheck Start SQ when gap closed, overlap for 1 hour with gtt Monitor volumes and renal function Observe off Abx, monitor WCt Serial abdominal exam, monitor LFT's, abd US ordered DVT Px: Hep SQ SW evaluation The importance of medication compliance d/w patient Disposition: keep in ICU Time Spent (Minutes): 40 Notes Reviewed: other - ER MD Discussed with: nurses Critical Care - Objective Last 24 Hour Vital Signs Date Time Temp Pulse Resp B/P (MAP) Pulse Ox O2 Delivery O2 Flow Rate FiO2 04/12/19 12:51 98.8 86 19 109/71 100 Room Air 04/12/19 11:39 98.8 88 18 109/70 98 Room Air 04/12/19 09:41 85 20 Room Air 04/12/19 09:40 98.8 85 20 133/101 97 Room Air 04/12/19 09:21 98.8 78 22 148/72 (97) 94 Room Air Status: awake Condition: critical HEENT: atraumatic, normocephalic Lungs: clear Heart: HR/BP stable Abdomen: soft, non-tender, active bowel sounds Extremities: no C/C/E Micro: Microbiology Date/Time Source Procedure Growth Status 04/12/19 12:45 Rectum Received Accucheck: 216 Blood Sugars: BS not controlled Critical Care - Subjective ROS Limited/Unobtainable: Yes ICU Day: 1 Intubation Day: N/A Interval Events: 23 M h/o DM and med non compliance p/w abd pain after running out of insulin x 2 days. W/U c/w DKA + MJ no EtOH No FC no CP/SOB no DOAN/dizzines + N no V + abd pain no DC no urinary complaints. Condition: critical IV Access: peripheral EKG Rhythm: Sinus Rhythm Fluids: D5LR@100 Drips: Insulin Subjective: As above Labs: Laboratory Tests Test 04/12/19 09:31 04/12/19 09:50 04/12/19 12:45 White Blood Count 14.0 K/UL (4.8-10.8) H Red Blood Count 5.93 M/UL (4.70-6.10) Hemoglobin 16.5 G/DL (14.2-18.0) Hematocrit 51.6 % (42.0-52.0) Mean Corpuscular Volume 87 FL (80-99) Mean Corpuscular Hemoglobin 27.8 PG (27.0-31.0) Mean Corpuscular Hemoglobin Concent 31.9 G/DL (32.0-36.0) L Red Cell Distribution Width 11.9 % (11.6-14.8) Platelet Count 290 K/UL (150-450) Mean Platelet Volume 8.6 FL (6.5-10.1) Neutrophils (%) (Auto) % (45.0-75.0) Lymphocytes (%) (Auto) % (20.0-45.0) Monocytes (%) (Auto) % (1.0-10.0) Eosinophils (%) (Auto) % (0.0-3.0) Basophils (%) (Auto) % (0.0-2.0) Differential Total Cells Counted 100 Neutrophils % (Manual) 91 % (45-75) H Lymphocytes % (Manual) 5 % (20-45) L Monocytes % (Manual) 2 % (1-10) Eosinophils % (Manual) 0 % (0-3) Basophils % (Manual) 1 % (0-2) Band Neutrophils 1 % (0-8) Platelet Estimate Adequate Platelet Morphology Normal Anisocytosis 1+ Sodium Level 136 MMOL/L (136-145) Potassium Level 4.1 MMOL/L (3.5-5.1) Chloride Level 91 MMOL/L (98-107) L Carbon Dioxide Level 15 MMOL/L (21-32) L Anion Gap 30 mmol/L (5-15) H Blood Urea Nitrogen 11 mg/dL (7-18) Creatinine 1.2 MG/DL (0.55-1.30) Estimat Glomerular Filtration Rate > 60 mL/min (>60) Glucose Level 329 MG/DL (74-106) H Calcium Level 10.6 MG/DL (8.5-10.1) H Magnesium Level 1.8 MG/DL (1.8-2.4) Total Bilirubin 1.3 MG/DL (0.2-1.0) H Direct Bilirubin 0.2 MG/DL (0.0-0.3) Aspartate Amino Transf (AST/SGOT) 19 U/L (15-37) Alanine Aminotransferase (ALT/SGPT) 17 U/L (12-78) Alkaline Phosphatase 128 U/L (46-116) H Troponin I 0.000 ng/mL (0.000-0.056) Total Protein 9.5 G/DL (6.4-8.2) H Albumin 5.1 G/DL (3.4-5.0) H Globulin 4.4 g/dL Albumin/Globulin Ratio 1.2 (1.0-2.7) Lipase 28 U/L (73-393) L Acetone Level Positive-moderate (NEGATIVE) Venous Blood pH 7.227 Venous Blood Partial Pressure CO2 32.1 Venous Blood Partial Pressure O2 32.4 Venous Blood HCO3 13.1 Venous Blood Total Carbon Dioxide Pending Venous Bld O2 Saturation (Measured) Pending Venous Blood Oxygen Saturation 56.9 Venous Blood Base Excess -13.2 Methemoglobin Pending Sodium (Blood Gas) Pending Urine Color Pale yellow Urine Appearance Clear Urine pH 6 (4.5-8.0) Urine Specific [place] 1.025 (1.005-1.035) Urine Protein 2+ (NEGATIVE) H Urine Glucose (UA) 4+ (NEGATIVE) H Urine Ketones 4+ (NEGATIVE) H Urine Blood Negative (NEGATIVE) Urine Nitrite Negative (NEGATIVE) Urine Bilirubin Negative (NEGATIVE) Urine Urobilinogen Normal MG/DL (0.0-1.0) Urine Leukocyte Esterase Negative (NEGATIVE) Urine RBC 0-2 /HPF (0 - 0) H Urine WBC 2-4 /HPF (0 - 0) Urine Squamous Epithelial Cells Occasional /LPF Urine Bacteria Occasional /HPF (NONE) Urine Fine Granular Casts 0-2 /LPF (NONE) H Urine Opiates Screen Negative (NEGATIVE) Urine Barbiturates Screen Negative (NEGATIVE) Phencyclidine (PCP) Screen Negative (NEGATIVE) Urine Amphetamines Screen Negative (NEGATIVE) Urine Benzodiazepines Screen Negative (NEGATIVE) Urine Cocaine Screen Negative (NEGATIVE) Urine Marijuana (THC) Screen Positive (NEGATIVE) H Jose Waldron MD Apr 12, 2019 14:39
--- NOTE | 2019-04-12 14:40 | NUR ---
ED Nurse Note: Report given to Roxanne Whyte RN at bedside. Pt is in room 246-G. No sign of acute distress.
--- NOTE | 2019-04-12 14:40 | NUR ---
NURSE NOTES: Dr. Waldron at bedside. updated MD on pt's condition. new orders noted and carried out.
--- NOTE | 2019-04-12 15:00 | NUR ---
NURSE NOTES: ABD USS ongoing, USS tech at bedside. No acute distress noted.
[2019-04-12] MEDS: Insulin Rate Change 1 Each MISC PRN ×3 (15:21→18:08)
[2019-04-12] MEDS: D5 1/2NS w/KCl 20mEq 1,000 ML IV SCH ×2 (15:53→22:02)
--- NOTE | 2019-04-12 16:40 | Diagnostic Imaging Report ---
Indication: Chest pain, shortness of breath Technique: One view of the chest Comparison: none Findings: Lungs and pleural spaces are clear. Heart size is normal. No significant interim change Impression: No acute process
[2019-04-12 16:41] LABS: ANION GAP 12 mmol/L (5-15); BLOOD UREA NITROGEN 8 mg/dL (7-18); CALCIUM 8.9 MG/DL (8.5-10.1); CARBON DIOXIDE 20 MMOL/L (21-32); CHLORIDE 104 MMOL/L (98-107); POTASSIUM 4.6 MMOL/L (3.5-5.1); SODIUM 136 MMOL/L (136-145)
--- NOTE | 2019-04-12 17:00 | NUR ---
NURSE NOTES: Mj BS 222. Anion gap 12. Notified Dr. Waldron. Per mary ALICIA to start subq average sliding scale and home regimen. overlap insulin gtt and sq for an hour and dc insulin gtt.
--- NOTE | 2019-04-12 17:07 | Diagnostic Imaging Report ---
Indication: Abdominal pain, abnormal liver function tests Technique: Wolf-scale and duplex images of the upper abdomen were obtained Comparison: No comparison sonograms. Reference made to abdomen pelvis CT 10/18/2018 Findings: Gallbladder is unremarkable, without stones, wall thickening, nor pericholecystic fluid. Sonographic Torres's sign is negative. Common bile duct measures 3 mm in diameter. No intrahepatic biliary ductal dilatation. Liver demonstrates normal echogenicity. Within the right hepatic lobe adjacent to the gallbladder fossa, probably in segment 8, there is an area of slightly increased echogenicity which measures 3.8 x 2.7 x 3 cm. This does not demonstrate distal acoustic enhancement or increased vascularity on Doppler imaging. No other focal abnormality Portal vein and hepatic veins are patent. Pancreas is unremarkable. Spleen is unremarkable. Left kidney measures 11.9 cm in length. Right kidney measures 11.9 cm length. Both kidneys demonstrate normal echogenicity. There is no hydronephrosis. No focal abnormality . Non-aneurysmal abdominal aorta . Unremarkable inferior vena cava. No free fluid Impression: 3.8 x 2.7 x 3 cm area of increased focal hepatic echogenicity adjacent to the gallbladder fossa. No corresponding findings inserted on prior CT studies This could represent an atypical hemangioma, an area of geographic focal fatty infiltration, or could represent neoplasm. Recommend further evaluation with dedicated hepatic contrast CT or MRI No other acute or significant abnormality. Negative for gallstones or dilated bile ducts
--- NOTE | 2019-04-12 17:10 | NUR ---
NURSE NOTES: on algorithm 2, insulin drip running at 4.5ml/hr, 5 units Regular insulin IVP given. Addendum: 04/12/19 at 1730 by STORMY MATOS RN will scan new patient label when delivered by pharmacy.
[2019-04-12] MEDS: NovoLOG Insulin Flexpen SUBQ SCH ×2 (17:49→20:40)
--- NOTE | 2019-04-12 18:16 | NUR ---
Social Service Note SW familiar with patient from previous admissions. Patient shows poor awareness into his medical condition. [facility] [address] [place] [address] Lyssa GARDINER [id number], . Patient last seen in clinic on January 31, 2019. Follow up appointment arranged April 17 at 9am. Follow up appointment should be indicated in discharge instructions. Patient positive for THC, THC is legal in the State of [place].
--- NOTE | 2019-04-12 19:00 | NUR ---
NURSE NOTES: accleyla BS 165. Insulin gtt was discontinued per Dr. Waldron.
--- NOTE | 2019-04-12 19:26 | NUR ---
HAND-OFF: Report given to VIKAS Leonard.
--- NOTE | 2019-04-12 19:27 | NUR ---
NURSE NOTES: Endorsement received from Roxanne Whyte RN. Patient asleep, arousable by name. Alert, oriented x 4. On room air. No shortness of breath. With left forearm g 20 and right AC g 20. Receiving D5 1/2 NS with KCl 20 meqs at 150ml/hr. Insulin drip discontinued at 1900H as per endorsement. Head of bed elevated. Call light within reach. Reminded regarding the use of call light. Bed alarm on.
[2019-04-12] MEDS: Heparin 5000 units/ml inj SUBQ SCH (20:41)
--- NOTE | 2019-04-12 20:52 | NUR ---
NURSE NOTES: Patient reported 8/[address] Waldron, awaiting for return call.
[2019-04-12] MEDS ORDERED: Levemir Flexpen SUBQ SCH (21:00)
--- NOTE | 2019-04-12 21:40 | NUR ---
NURSE NOTES: Still no response from Dr. Waldron, called Dr. Fowler on his emergency number. Awaiting for return call.
--- NOTE | 2019-04-12 21:50 | NUR ---
NURSE NOTES: Received a return call from Dr. Fowler, with new orders for PRN pain medication. Orders read back and verified by the doctor.
[2019-04-12] MEDS ORDERED: traMADol 50mg tab ORAL PRN (22:00)
[2019-04-12] MEDS ORDERED: HYDROcodone/Acetamin 10/325 tab ORAL PRN (22:00)
[2019-04-12] MEDS ORDERED: HYDROmorphone 1mg/ml Carpuject IVP PRN (22:00)
[2019-04-13] VITALS (12 sets, daily range): BP systolic 94–124; BP diastolic 50–73
--- NOTE | 2019-04-13 | NUR ---
NURSE NOTES: Patient asleep. Appears comfortable. Bed locked and in low position. Bed alarm on. Call light within reach.
--- NOTE | 2019-04-13 02:00 | NUR ---
NURSE NOTES: Patient asleep. Arousable per name. No complains of pain at this time.
--- NOTE | 2019-04-13 04:00 | NUR ---
NURSE NOTES: Patient asleep at this time. Vital signs stable.
[2019-04-13] MEDS: D5 1/2NS w/KCl 20mEq 1,000 ML IV SCH ×2 (04:45→11:15)
[2019-04-13 04:54] LABS: BASOPHILS % (AUTO) 1.1 % (0.0-2.0); EOSINOPHILS % (AUTO) 0.2 % (0.0-3.0); HEMATOCRIT 40.4 % (42.0-52.0); HEMOGLOBIN 13.4 G/DL (14.2-18.0); LYMPHOCYTES % (AUTO) 23.1 % (20.0-45.0); MEAN CORPUSCULAR VOLUME 85 FL (80-99); MONOCYTES % (AUTO) 6.9 % (1.0-10.0); NEUTROPHILS % (AUTO) 68.7 % (45.0-75.0); PLATELET COUNT 229 K/UL (150-450); RED BLOOD COUNT 4.76 M/UL (4.70-6.10); RED CELL DISTRIBUTION WIDTH 11.9 % (11.6-14.8); WHITE BLOOD COUNT 10.9 K/UL (4.8-10.8)
[2019-04-13 05:17] LABS: ANION GAP 9 mmol/L (5-15); BLOOD UREA NITROGEN 5 mg/dL (7-18); CALCIUM 8.2 MG/DL (8.5-10.1); CARBON DIOXIDE 24 MMOL/L (21-32); CHLORIDE 106 MMOL/L (98-107); CREATININE 0.9 MG/DL (0.55-1.30); POTASSIUM 3.7 MMOL/L (3.5-5.1); SODIUM 138 MMOL/L (136-145)
[2019-04-13] MEDS: NovoLOG Insulin Flexpen SUBQ SCH ×4 (06:15→11:50)
--- NOTE | 2019-04-13 06:30 | NUR ---
NURSE NOTES: Blood sugar checked, insulin given as per sliding scale with fioxed dose of 8 units as ordered. Patient awake, stated that he wishes to talk to the doctor if he can be discharged today. Informed him that the doctor will make rounds today but no definite time.
--- NOTE | 2019-04-13 07:13 | NUR ---
HAND-OFF: Report given to Roxanne Whyte RN.
--- NOTE | 2019-04-13 07:13 | NUR ---
NURSE NOTES: Received the patient from VIKAS Leonard. Patient is asleep, easily arousable, alert and oriented x4. SB HR 56 noted on the monitor. Patient on room air, O2 sat 100%. No acute distress noted. Left forearm 20G and right AC 20G intact, running D5 1/2NS with 20meq KCl at 150ml/hr. Bed in lowest position, locked, side rails upx2. bed alarm on. call light within reach. Will continue to monitor.
[2019-04-13] MEDS: Heparin 5000 units/ml inj SUBQ SCH (08:38)
--- NOTE | 2019-04-13 09:30 | NUR ---
NURSE NOTES: Patient is awake, resting in bed comfortably. No acute distress noted. VSS. Patient denies ABD pain, n/v. No SOB, CP.
--- NOTE | 2019-04-13 10:34 | NUR ---
*-* NO INSURANCE INFORMATION IN THE BAR UNABLE TO SEND CLINICALS OR REVIEWS *-*
--- NOTE | 2019-04-13 11:21 | Discharge Instructions ---
Discharge Instructions Discharge Instructions Follow up with: pcp Call MD/Return to Hospital if: nausea, vomting, intractable pain Diet: diabetic calorie control Resume Normal Activity?: Yes Activity: resume normal activities For Congestive Heart Failure Reminder Report to your physician any weight gain of 5 pounds or more in one week. Paula Solis MD Apr 13, 2019 11:21
--- NOTE | 2019-04-13 11:30 | NUR ---
NURSE NOTES: Patient seen by Dr. Harper. Per MD, patient is okay to be discharged to home.
--- NOTE | 2019-04-13 11:50 | NUR ---
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 98.7 HR 78 RR 22 B/P 148/72 WBC 14.0 GLU 329 AGAP 30 ALK PHOS 128 PH 7.34 PCO2 33.5 PO2 97.6 HCO3 17.7 O2 SAT 97.6 UA+ KETONES,PROTEIN CXR= NO ACUTE PROCESS ABD/US+ NO ACUTE FINDINGS IS: IV BOLUS NS X 2 LITERS REGLAN IV LEVEMIR K-DUR KCL IV REGULAR INSULIN GTT BENADRYL IV ADMITTED TO ICU @ 1440 ICU STATUS DCP RETURN HOME
--- NOTE | 2019-04-13 11:55 | NUR ---
NURSE NOTES: Patient discharged to home. Discharge instruction given to the patient. Patient verbalized understanding. All questions answered. IV lines are removed. Removed media monitor.
--- NOTE | 2019-04-14 14:36 | Cardiology Report ---
APPROVED REPORT EKG Measurement Heart [id number] Normal sinus rhythm Possible Left atrial enlargement ST elevation, consider early repolarization, pericarditis, or injury Nonspecific ST abnormality Abnormal ECG
--- NOTE | 2019-04-14 17:03 | History and Physical ---
History of Present Illness General Date patient seen: Apr 12, 2019 Reason for Hospitalization: Abdominal Pain Present Illness HPI 23 year old man with insulin dependent diabetes mellitus, history of noncompliance with medications, frequent admissions for DKA. He presented today with nausea, vomiting and upper abdominal pain. Pt states that he ran out of insulin and by the time he was able to pick it up he was already symptomatic. He denies recent illness. He denies fever or chills. He denies chest pain or shortness of breath. He denies dysuria or hematuria. He has no other complaints. Patient was found to be in DKA, given 4 liters of NS and started on insulin drip. Patient is being admitted to the ICU for further management of DKA. Allergies: Coded Allergies: No Known Allergies (Unverified , 03/27/14) Medication History Scheduled Insulin Glargine (Lantus), 28 UNITS SUBQ BEDTIME Insulin Lispro (Humalog), 8 UNITS SUBQ TID Scheduled PRN Albuterol Sulfate* (Albuterol Sulfate Mdi*), 2 PUFF INH Q4H PRN for For Cough Ondansetron (Zofran), 4 MG ORAL Q6H PRN for Nausea & Vomiting Miscellaneous Medications [insluin], SUBQ, (Reported) Patient History Healthcare decision maker Resuscitation status Advanced Directive on File Review of Systems ROS Narrative Constitutional: Reports: malaise; Denies: fever Eye: Denies: eye pain, blurred vision ENT: Denies: ear pain Respiratory: Denies: cough Cardiovascular: Denies: chest pain Gastrointestinal: Reports: abdominal pain, nausea, vomiting; Denies: constipation, diarrhea Genitourinary: Denies: dysuria Musculoskeletal: Denies: back pain Skin: Denies: rash Neurological: Denies: headache Physical Exam Intake and Output 04/13/19 04/14/19 19:00 07:00 Intake Total 650 ml Output Total 500 ml Balance 150 ml Intake Oral 50 ml IV Total 600 ml Output Urine Total 500 ml Height (Feet): 5 Height (Inches): 8.00 Weight (Pounds): 138 Objective Narrative General Appearance: no apparent distress, alert HEENT: normocephalic, atraumatic, anicteric Neck: normal alignment, supple Respiratory/Chest: chest wall non-tender, lungs clear, normal breath sounds Cardiovascular/Chest: normal rate, regular rhythm Abdomen: non tender, soft, no organomegaly, no mass Extremities: non-tender, normal inspection Skin Exam: normal pigmentation, warm/dry 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
--- NOTE | 2019-04-14 17:05 | Discharge Summary ---
Discharge Summary Hospital Course Date of Admission Apr 12, 2019 at 11:18 Date of Discharge Apr 13, 2019 at 12:00 Admitting Diagnosis DKA HPI Niels Weinstein is a 23 year old male who was admitted on Apr 12, 2019 at 11:18 for Diabetic Ketoacidosis Consultations pulmonary/Crit Hospital Course Hospital Course #Abdominal pain, resolved #Intractable nausea and vomiting, resolved #Diabetic ketoacidosis, resolved #ANA due to dehydration, present on admission, resolved -admited to ICU -treated with insulin drip and IV fluids with resolution of DKA and ANA -Patient tolerating regular diet -Will discharge home with script for rea, importance of compliance discussed with the patient Time spent in preparing discharge was 35 minutes Discharge Medications Continued Medications: Albuterol Sulfate* (Albuterol Sulfate Mdi*) 8.5 Gm Hfa.aer.ad 2 PUFF INH Q4H PRN for For Cough, #1 EA [insluin] () SUBQ (This prescription has been renewed) Insulin Glargine (Lantus) 100 Unit/1 Ml Insuln.pen 28 UNITS SUBQ BEDTIME, #1 VIAL 0 Refills Insulin Lispro (Humalog) 100 Unit/1 Ml Cartridge 8 UNITS SUBQ TID, #1 VIAL 0 Refills Ondansetron (Zofran) 4 Mg Tablet 4 MG ORAL Q6H PRN for Nausea & Vomiting, #30 TAB 0 Refills Discharge Condition Upon Discharge: stable Discharge Disposition Patient was discharged to home Discharge Instructions Discharge Instructions Follow up with: pcp Call MD/Return to Hospital if: nausea, vomting, intractable pain Activity: resume normal activities Paula Solis MD Apr 14, 2019 17:05
--- NOTE | 2019-04-15 09:47 | NUR ---
CASE MANAGEMENT: CM review and clinical information (face sheet/ ER MD notes/ H&P/DC summary) faxed to VERONICA @ [phone] and ABDIFATAH MENDOZA @ [phone].
== END 2019-04-13 12:00 | disposition home or self-care (01) | DRG 420 ==
LOC: EMR 09:39 → ICU 11:18 → EDBEDREQ 11:55
DX: E10.10 Type 1 diabetes mellitus with ketoacidosis without coma (principal); Z79.4 Long term (current) use of insulin; N17.9 Acute kidney failure, unspecified; E86.0 Dehydration; Z91.14 Patient's other noncompliance with medication regimen
CPT/HCPCS: 36415; 36600; 71045; 76700; 80048; 80053; 80307; 81003; 82009; 82248; 82803; 82962; 83036; 83690; 83735; 84484; 85007; 85025; 87081; 93005; 96361; 96365; 96372; 96375; 99291; J1815; J2405; J2765; J8499; S5561

== ENCOUNTER 2019-07-19 16:13 | Emergency (ER) | payer OTHER ==
[~2019-07-19] VITALS: Ht 172.7 cm; Wt 61.2 kg
--- NOTE | 2019-07-19 16:45 | NUR ---
ED Nurse Note: Patient arrive to ED by car from home. Patient is Type 1 diabetic. He has been taking Lantus and regular insulin as prescribed, but has been limited in eating due to wisdom tooth extraction. Patient has been nauseated, vomited x 3 at home. AxO x 4. Skin intact. Currently patient feels nauseated. Blood sent to lab, bed in lowest position.
--- NOTE | 2019-07-19 16:47 | Emergency Room Report ---
History of Present Illness General Chief Complaint: Abdominal Pain Source: Patient, Medical Record Present Illness HPI Disclaimer: Please note that this report is being documented using [employer] technology. This can lead to erroneous entry secondary to incorrect interpretation by the dictating instrument. HPI: 23-year-old male with recent extraction of left upper lip wisdom tooth presents for evaluation of nausea and lightheadedness. Patient is a type 1 insulin-dependent diabetic. He had his wisdom tooth extracted 2 days ago and states that since then has had significant nausea and not been eating anything. He was scared to take anything with sugar as he is a diabetic and did not want his blood sugar to spike. He has been drinking water and maintains adequate urine output. He feels fatigued and drained overall with intermittent nausea. He states he had one episode of emesis last night that was nonbloody and nonbilious. Coming in requesting evaluation for dehydration. Denies fever , chills. Does not smoke. No other complaints at this time. PMH: Insulin-dependent diabetes PSH: Gill tooth extraction Allergies: Denies Social Hx: Denies Allergies: Coded Allergies: No Known Allergies (Unverified , 03/27/14) Nursing Documentation-[facility] Past Medical History: No History, Except For Hx Cardiac Problems: No Hx Asthma: Yes Hx Diabetes: Yes - DM type I, DKA Hx Cancer: No Hx Gastrointestinal Problems: No Hx Neurological Problems: No Review of Systems All Other Systems: negative except mentioned in HPI Physical Exam Vital Signs Date Time Temp Pulse Resp B/P (MAP) Pulse Ox O2 Delivery O2 Flow Rate FiO2 07/19/19 16:29 98.4 97 18 138/88 (105) 98 Room Air General: Awake and alert, no acute distress HEENT: NC/AT. EOMI. socket of tooth #14 appears to be healing well. No evidence of alveolar osteitis. No gingival swelling, no purulent drainage. No trismus. Uvula midline. Neck: Supple, trachea midline Chest Wall: No tenderness, no deformity Cardiovascular: RRR. S1 and S2 normal. No murmur appreciated Resp: Normal work of breathing. No cough, wheezing or crackles appreciated Abdomen: Abdomen is soft, nondistended. Nontender Skin: Intact. No abrasions, laceration or rash over the exposed skin MSK: Normal tone and bulk. Moving all extremities. No obvious deformity. Neuro: Awake and alert. Mentating appropriately. Medical Decision Making Diagnostic Impression: Primary Impression: Dehydration Additional Impressions: Nausea Vomiting ER Course 23-year-old type I diabetic with recent dental extraction presents for evaluation of fatigue and nausea. He states he has been gagging since his operation and has not been eating anything over fear that he might spike his blood sugar. He appears fatigued but overall no acute distress. Will provide IV hydration and check screening labs. Will provide antiemetics and have the patient eat something in the emergency department. Laboratory Tests Test 07/19/19 17:03 White Blood Count 13.2 K/UL (4.8-10.8) H Red Blood Count 6.08 M/UL (4.70-6.10) Hemoglobin 17.0 G/DL (14.2-18.0) Hematocrit 50.3 % (42.0-52.0) Mean Corpuscular Volume 83 FL (80-99) Mean Corpuscular Hemoglobin 27.9 PG (27.0-31.0) Mean Corpuscular Hemoglobin Concent 33.7 G/DL (32.0-36.0) Red Cell Distribution Width 10.7 % (11.6-14.8) L Platelet Count 227 K/UL (150-450) Mean Platelet Volume 8.7 FL (6.5-10.1) Neutrophils (%) (Auto) 82.7 % (45.0-75.0) H Lymphocytes (%) (Auto) 11.0 % (20.0-45.0) L Monocytes (%) (Auto) 5.6 % (1.0-10.0) Eosinophils (%) (Auto) 0.0 % (0.0-3.0) Basophils (%) (Auto) 0.7 % (0.0-2.0) Sodium Level 137 MMOL/L (136-145) Potassium Level 3.5 MMOL/L (3.5-5.1) Chloride Level 95 MMOL/L (98-107) L Carbon Dioxide Level 23 MMOL/L (21-32) Anion Gap 19 mmol/L (5-15) H Blood Urea Nitrogen 14 mg/dL (7-18) Creatinine 0.9 MG/DL (0.55-1.30) Estimate Glomerular Filtration Rate > 60 mL/min (>60) Glucose Level 207 MG/DL (74-106) H Calcium Level 9.5 MG/DL (8.5-10.1) Reevaluation Time: 18:12 Last Vital Signs Date Time Temp Pulse Resp B/P (MAP) Pulse Ox O2 Delivery O2 Flow Rate FiO2 07/19/19 16:29 98.4 97 18 138/88 (105) 98 Room Air Reevaluation Impression Labs have returned within normal limits. The patient is reporting that he feels much better and would like to be discharged home. We will prescribe him ibuprofen and Zofran to treat his symptoms and quick follow-up with his dentist and his PMD. We discussed reasons to return to the emergency department. He understands and agrees with this treatment plan will be discharged home. Disposition: HOME, SELF-CARE Condition: Improved Scripts Ondansetron Odt* (ZOFRAN ODT*) 4 Mg Tab.rapdis 4 MG BC EVERY 6 HOURS PRN for Nausea & Vomiting, #20 TAB 0 Refills Prov: Trevon Nicholas MD 07/19/19 Ibuprofen* (MOTRIN*) 600 Mg Tablet 600 MG ORAL Q8H PRN for For Pain, #30 TAB 0 Refills Prov: Trevon Nicholas MD 07/19/19 Trevon Nicholas MD Jul 19, 2019 16:47
[2019-07-19 17:13] VITALS: BP 136/86
[2019-07-19 17:25] LABS: BASOPHILS % (AUTO) 0.7 % (0.0-2.0); HEMATOCRIT 50.3 % (42.0-52.0); MEAN CORPUSCULAR VOLUME 83 FL (80-99); MONOCYTES % (AUTO) 5.6 % (1.0-10.0); NEUTROPHILS % (AUTO) 82.7 % (45.0-75.0); PLATELET COUNT 227 K/UL (150-450); RED BLOOD COUNT 6.08 M/UL (4.70-6.10); RED CELL DISTRIBUTION WIDTH 10.7 % (11.6-14.8); WHITE BLOOD COUNT 13.2 K/UL (4.8-10.8)
[2019-07-19 17:31] LABS: ANION GAP 19 mmol/L (5-15); BLOOD UREA NITROGEN 14 mg/dL (7-18); CALCIUM 9.5 MG/DL (8.5-10.1); CARBON DIOXIDE 23 MMOL/L (21-32); CHLORIDE 95 MMOL/L (98-107); CREATININE 0.9 MG/DL (0.55-1.30); POTASSIUM 3.5 MMOL/L (3.5-5.1); SODIUM 137 MMOL/L (136-145)
[2019-07-19] MEDS ORDERED: IBUPROFEN600 MG ORAL (18:05)
[2019-07-19] MEDS ORDERED: ONDANSETRON ODT4 MG BC (18:05)
[2019-07-19 18:25] VITALS: BP 130/82
--- NOTE | 2019-07-19 18:25 | NUR ---
ER DISCHARGE NOTE: Patient is cleared to be discharged per ERMD, pt is aox4, on room air, with stable vital signs. pt was given dc and prescription instructions, pt was able to verbalize understanding, pt id band and iv site removed without complications. pt is able to ambulate with steady gait. pt took all belongings.
== END 2019-07-19 18:29 | disposition home or self-care (01) ==
LOC: EMR 17:15
DX: E86.0 Dehydration (principal); R11.2 Nausea with vomiting, unspecified; E10.9 Type 1 diabetes mellitus without complications; Z79.4 Long term (current) use of insulin; J45.909 Unspecified asthma, uncomplicated; K08.499 Partial loss of teeth due to other specified cause, unspecified class
CPT/HCPCS: 36415; 80048; 82962; 85025; 96361; 96374; J2405; Z7502; 99284; J7030

== ENCOUNTER 2019-07-22 22:13 | Emergency (ER) | payer OTHER ==
[~2019-07-22] VITALS: Ht 172.7 cm; Wt 61.2 kg
[~2019-07-22 22:13] MED LIST changes: +IBUPROFEN600 MG ORAL; +ONDANSETRON ODT4 MG BC
[2019-07-22 22:18] VITALS: BP 141/88
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
--- NOTE | 2019-07-22 22:39 | NUR ---
ED Nurse Note: Xray at bedside.
[2019-07-22] MEDS ORDERED: IBUPROFEN600 MG ORAL (23:22)
[2019-07-22 23:27] VITALS: BP 141/88
--- NOTE | 2019-07-22 23:27 | NUR ---
ED Nurse Note: Pt cleared by ERMD for discharge. DC instructions was given and explained to pt and verbalized understanding of teachings. Prescription was sent electronically. All medical deviecs such as ID band removed. Pt is AAO x4, ambulatory and left with all personal belongings.
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
--- NOTE | 2019-07-23 15:03 | Diagnostic Imaging Report ---
Indication: Right hand pain Findings: 3 views of the right hand were obtained. There is a fracture of the fifth metacarpal shaft. Fractures oblique and minimally distracted. Soft tissue swelling noted. IMPRESSION: Acute fracture of the fifth metacarpal
== END 2019-07-22 23:27 | disposition home or self-care (01) ==
LOC: EMR 22:47
DX: S62.336A Displaced fracture of neck of fifth metacarpal bone, right hand, initial encounter for closed fracture (principal); X58.XXXA Exposure to other specified factors, initial encounter; Y92.9 Unspecified place or not applicable; E11.9 Type 2 diabetes mellitus without complications
CPT/HCPCS: 29125; 73130; Z7502; 99283

== ENCOUNTER 2019-08-01 12:03 | Emergency (ER) | payer OTHER ==
[~2019-08-01] VITALS: Ht 172.7 cm; Wt 61.7 kg
[2019-08-01 12:20] VITALS: BP 130/85
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
--- NOTE | 2019-08-01 13:11 | Emergency Room Report ---
History of Present Illness General Chief Complaint: Wound Recheck/Suture Removal Source: Patient Present Illness HPI 23-year-old male with no symptom past medical history who was here at [facility] 1 week ago for fracture of right sided metacarpal bone and currently held in the splint requesting more management for his pain as well as changing of the bandage over the splint. Patient was unable to see renal medicine specialist his primary care notified him of change of insurance. Patient rating pain 10 out of 10 without radiation. Denies any compression feeling underneath the splint. No neurological or vascular changes noted. Denies tingling and numbness. Has not taken any other medication other than Motrin for pain relief. CURES was nonsignificant. Denies any recent injury. Allergies: Coded Allergies: No Known Allergies (Unverified , 03/27/14) Patient History Past Medical History: see triage record Past Surgical History: unable to obtain Pertinent Family History: none Immunizations: UTD Reviewed Nursing Documentation: PMH: Agreed; PSxH: Agreed Nursing Documentation-PMH Past Medical History: No History, Except For Hx Cardiac Problems: No Hx Asthma: Yes Hx Diabetes: Yes Hx Cancer: No Hx Gastrointestinal Problems: No Hx Neurological Problems: No Review of Systems All Other Systems: negative except mentioned in HPI Physical Exam Vital Signs Date Time Temp Pulse Resp B/P (MAP) Pulse Ox O2 Delivery O2 Flow Rate FiO2 08/01/19 12:12 98.4 103 17 124/80 (95) 98 Room Air Sp02 EP Interpretation: reviewed, normal General Appearance: no apparent distress, alert, GCS 15, non-toxic Head: normocephalic, atraumatic Eyes: bilateral eye normal inspection, bilateral eye PERRL ENT: hearing grossly normal, normal pharynx, no angioedema, normal voice Neck: full range of motion, supple/symm/no masses Respiratory: chest non-tender, lungs clear, normal breath sounds, speaking full sentences Cardiovascular #1: regular rate, rhythm, no edema, no murmur Cardiovascular #2: 2+ radial (R), 2+ radial (L) Gastrointestinal: normal bowel sounds, non tender, soft, non-distended, no guarding, no rebound Musculoskeletal: back normal, digits/nails normal, gait/station normal, other - Right hand in a splint and has full range of motion as well as no vascular or neurological deficits noted Neurologic: alert, oriented x3, responsive, motor strength/tone normal, sensory intact, speech normal Psychiatric: judgement/insight normal, memory normal, mood/affect normal, no suicidal/homicidal ideation Skin: no rash Lymphatic: no adenopathy Medical Decision Making PA Attestation All my diagnosis and treatment plans were reviewed ad discussed with my supervising physician Dr. Desai Diagnostic Impression: Primary Impression: Fractured hand ER Course 23-year-old male with no symptom past medical history who was here at [facility] 1 week ago for fracture of right sided metacarpal bone and currently held in the splint requesting more management for his pain as well as changing of the bandage over the splint. Patient was unable to see renal medicine specialist his primary care notified him of change of insurance. Patient rating pain 10 out of 10 without radiation. Denies any compression feeling underneath the splint. No neurological or vascular changes noted. Denies tingling and numbness. Has not taken any other medication other than Motrin for pain relief. CURES was nonsignificant. Denies any recent injury. Ddx considered but are not limited to: Hand sprain, hand sprain, hand fracture Vital signs: are WNL, pt. is afebrile H&PE are most consistent with : Hand fracture second encounter ORDERS: Tylenol 3, ibuprofen 800 ED INTERVENTIONS: Toradol, changing a bandage over the splint DISCHARGE: At this time pt. is stable for d/c to home. Will provide printed patient care instructions, and any necessary prescriptions. Care plan and follow up instructions have been discussed with the patient prior to discharge. I gave patient a list of renal medicine specialist and clinics that he could go into. Also very few number of Tylenol 3 was given in form of prescription. Follow-up with renal medicine specialist at this time not advised to change the splint altogether and do need casting. Last Vital Signs Date Time Temp Pulse Resp B/P (MAP) Pulse Ox O2 Delivery O2 Flow Rate FiO2 08/01/19 12:20 98.0 20 130/85 98 Room Air 08/01/19 12:12 103 Disposition: HOME, SELF-CARE Condition: Stable Scripts Ibuprofen (Ibu) 800 Mg Tablet 800 MG PO TID, #30 TAB Prov: Sabrina Romano 08/01/19 Acetaminophen With Codeine (T#3) (TYLENOL #3 TAB*) Y Tab 1 TAB ORAL Q8HR PRN for For Pain, #10 TAB Prov: Sabrina Romano 08/01/19 Referrals: NON PHYSICIAN (PCP) Patient Instructions: Metacarpal Fracture Additional Instructions: Follow-up with renal medicine specialist for casting at this time it has been too long posterior fracture and needs further evaluation by a hand renal medicine specialist. If worsening symptoms return to the emergency room Sabrina Romano Aug 01, 2019 13:11
[2019-08-01] MEDS ORDERED: ACETAMINOPHEN-1 EAC1 ORAL (13:12)
[2019-08-01] MEDS ORDERED: IBU800 MG PO (13:12)
[2019-08-01] MEDS ORDERED: Ketorolac 30mg Inj IM ONE (13:30)
[2019-08-01 14:00] VITALS: BP 130/85
--- NOTE | 2019-08-01 14:00 | NUR ---
ER DISCHARGE NOTE: Patient is cleared to be discharged per ERMD, pt is aox4, on room air, with stable vital signs. pt was given dc and prescription instructions, pt was able to verbalize understanding, pt id bandremoved without complications. pt is able to ambulate with steady gait. pt took all belongings. Pt bandage was changed to clean bandage and he stated pain was 0/10.
== END 2019-08-01 14:00 | disposition home or self-care (01) ==
LOC: EMR 12:45
DX: S62.309D Unspecified fracture of unspecified metacarpal bone, subsequent encounter for fracture with routine healing (principal); J45.909 Unspecified asthma, uncomplicated; E11.9 Type 2 diabetes mellitus without complications
CPT/HCPCS: 96372; J1885; Z7502; 99283

== ENCOUNTER 2019-10-31 20:15 | Emergency (ER) | payer OTHER ==
[~2019-10-31] VITALS: Ht 172.7 cm; Wt 59.0 kg
[~2019-10-31 20:15] MED LIST changes: +ACETAMINOPHEN-1 EAC1 ORAL; +IBU800 MG PO
--- NOTE | 2019-10-31 20:53 | Emergency Room Report ---
History of Present Illness General Chief Complaint: Abdominal Pain Source: Patient Present Illness HPI Patient is a 24-year-old male presents after increased abdominal discomfort. Patient had acute onset of periumbilical pain. Reports having multiple episodes of nausea and vomiting. Denies any hematemesis or bloody stools. Prior history of type 1 diabetes as well as recent hospitalization after some intestinal obstruction due to multiple intussusceptions. Reportedly these resolved spontaneously. He denies any fever.Patient reports having some recent alcohol use. He states he drank several alcoholic drinks yesterday. Denies any hematemesis or bloody stools. Allergies: Coded Allergies: No Known Allergies (Unverified , 03/27/14) Patient History Past Medical History: see triage record Reviewed Nursing Documentation: PMH: Agreed; PSxH: Agreed Nursing Documentation-PMH Hx Cardiac Problems: No Hx Asthma: Yes Hx Diabetes: Yes - TYPE I Hx Cancer: No Hx Gastrointestinal Problems: No Hx Neurological Problems: No Review of Systems All Other Systems: negative except mentioned in HPI Physical Exam Vital Signs Date Time Temp Pulse Resp B/P (MAP) Pulse Ox O2 Delivery O2 Flow Rate FiO2 10/31/19 20:25 99.7 102 24 118/77 (91) 100 Room Air Sp02 EP Interpretation: reviewed, normal General Appearance: alert, GCS 15, mild distress Head: atraumatic Eyes: bilateral eye PERRL ENT: normal ENT inspection, hearing grossly normal, normal voice Neck: normal inspection, full range of motion, supple, no bony tend Respiratory: normal inspection, lungs clear, normal breath sounds, no respiratory distress, no retraction, no wheezing Cardiovascular #1: regular rate, rhythm, no edema Gastrointestinal: normal inspection, normal bowel sounds, non tender, soft, no guarding, no hernia Genitourinary: no CVA tenderness Musculoskeletal: normal inspection, back normal, normal range of motion Neurologic: alert, motor strength/tone normal, naphthalene still operator III-XII nml as tested, responsive, speech normal, normal inspection Psychiatric: normal inspection, judgement/insight normal, mood/affect normal Skin: pallor Medical Decision Making Diagnostic Impression: Primary Impression: Diabetes mellitus Additional Impression: Dehydration ER Course Patient presented for abdominal pain. Differential diagnoses included ischemic bowel, appendicitis, perforated viscus, abdominal aortic aneurysm, inferior myocardial infarction, viral gastroenteritis among others.Because patient's complexity imaging studies, and laboratory testing ordered. Laboratory testing showed . Electrolytes were unremarkable Lipase was normal normal bicarbonate level, Patient was able to tolerate oral fluids and was given IV antiemetics. White blood count was 18,000 which is consistent with prior lab draws during episodes of vomiting. CT of the abdomen pelvis showed:Some small bowel fluid-filled loops without any evidence of obstruction See radiology report for full details Patient appears to be stable for close outpatient follow up. Patient does not appear to be in diabetic ketoacidosis. Patient was given IV fluids and stated he felt better. Patient was advised to follow-up with primary care physician for recheck. The patient is advised to follow up with primary care doctor in 1-2 days. Patient is advised to return if any worsening condition or if any changes in status that are concerning. This report is dictated with [employer] facsimile operator software which may occasionally lead to discrepancies related to use of this software. Labs Test 10/31/19 20:50 White Blood Count 18.8 K/UL (4.8-10.8) Red Blood Count 5.86 M/UL (4.70-6.10) Hemoglobin 16.6 G/DL (14.2-18.0) Hematocrit 49.9 % (42.0-52.0) Mean Corpuscular Volume 85 FL (80-99) Mean Corpuscular Hemoglobin 28.4 PG (27.0-31.0) Mean Corpuscular Hemoglobin Concent 33.3 G/DL (32.0-36.0) Red Cell Distribution Width 12.7 % (11.6-14.8) Platelet Count 239 K/UL (150-450) Mean Platelet Volume 8.6 FL (6.5-10.1) Neutrophils (%) (Auto) % (45.0-75.0) Lymphocytes (%) (Auto) % (20.0-45.0) Monocytes (%) (Auto) % (1.0-10.0) Eosinophils (%) (Auto) % (0.0-3.0) Basophils (%) (Auto) % (0.0-2.0) Differential Total Cells Counted 100 Neutrophils % (Manual) 92 % (45-75) Lymphocytes % (Manual) 3 % (20-45) Monocytes % (Manual) 1 % (1-10) Eosinophils % (Manual) 0 % (0-3) Basophils % (Manual) 0 % (0-2) Band Neutrophils 4 % (0-8) Platelet Estimate Adequate Platelet Morphology Normal Red Blood Cell Morphology Normal Sodium Level 143 MMOL/L (136-145) Potassium Level 3.5 MMOL/L (3.5-5.1) Chloride Level 100 MMOL/L (98-107) Carbon Dioxide Level 26 MMOL/L (21-32) Anion Gap 17 mmol/L (5-15) Blood Urea Nitrogen 12 mg/dL (7-18) Creatinine 0.9 MG/DL (0.55-1.30) Estimat Glomerular Filtration Rate > 60 mL/min (>60) Glucose Level 205 MG/DL (74-106) Osmolality 300 mOsm/kg (297-317) Calcium Level 9.6 MG/DL (8.5-10.1) Ionized Calcium (Measured) 1.09 mmol/L (1.10-1.35) Magnesium Level 1.6 MG/DL (1.8-2.4) Total Bilirubin 1.0 MG/DL (0.2-1.0) Aspartate Amino Transf (AST/SGOT) 18 U/L (15-37) Alanine Aminotransferase (ALT/SGPT) 23 U/L (12-78) Alkaline Phosphatase 134 U/L (46-116) Total Protein 8.6 G/DL (6.4-8.2) Albumin 4.5 G/DL (3.4-5.0) Globulin 4.1 g/dL Albumin/Globulin Ratio 1.1 (1.0-2.7) Lipase 42 U/L (73-393) Acetone Level Negative (NEGATIVE) Last Vital Signs Date Time Temp Pulse Resp B/P (MAP) Pulse Ox O2 Delivery O2 Flow Rate FiO2 10/31/19 20:25 99.7 102 24 118/77 (91) 100 Room Air Status: improved Disposition: HOME, SELF-CARE Condition: Stable Scripts Ondansetron Odt* (ZOFRAN ODT*) 4 Mg Tab.rapdis 4 MG BC EVERY 8 HOURS PRN for Nausea & Vomiting, #10 TAB 0 Refills Prov: William Nelson MD 10/31/19 William Nelson MD Oct 31, 2019 20:53
[2019-10-31 20:55] VITALS: BP 124/74
--- NOTE | 2019-10-31 20:55 | NUR ---
ED Nurse Note: Mother at bedside.
--- NOTE | 2019-10-31 20:55 | NUR ---
ED Nurse Note: Patient walked in from home d/t nausea/vomiting, patient stated he ate a bad sandwich and has vomited 10 times. Patient aao x 4 and ambulatory. Stomach pain 10/10 aching. Patient placed in gown and cord cutter. IV established on Right AC 20g, asymptomatic, patent, and intact. Blood sample collected and sent to lab. Patient in stable condition.
[2019-10-31 21:08] LABS: HEMATOCRIT 49.9 % (42.0-52.0); HEMOGLOBIN 16.6 G/DL (14.2-18.0); MEAN CORPUSCULAR VOLUME 85 FL (80-99); PLATELET COUNT 239 K/UL (150-450); RED BLOOD COUNT 5.86 M/UL (4.70-6.10); RED CELL DISTRIBUTION WIDTH 12.7 % (11.6-14.8); WHITE BLOOD COUNT 18.8 K/UL (4.8-10.8)
[2019-10-31 21:23] LABS: ANION GAP 17 mmol/L (5-15); BLOOD UREA NITROGEN 12 mg/dL (7-18); CALCIUM 9.6 MG/DL (8.5-10.1); CARBON DIOXIDE 26 MMOL/L (21-32); CHLORIDE 100 MMOL/L (98-107); CREATININE 0.9 MG/DL (0.55-1.30); POTASSIUM 3.5 MMOL/L (3.5-5.1); SODIUM 143 MMOL/L (136-145)
--- NOTE | 2019-10-31 21:23 | NUR ---
ED Nurse Note: Attempted to collect urine, patient unable to provide sample at this time, stated to check and re-try in 5 mins.
[2019-10-31 21:33] LABS: ALANINE AMINOTRANSFERASE 23 U/L (12-78); ALBUMIN 4.5 G/DL (3.4-5.0); ALBUMIN/GLOBULIN RATIO 1.1 (1.0-2.7); ALKALINE PHOSPHATASE 134 U/L (46-116)
[2019-10-31 21:42] LABS: ASPARTATE AMINO TRANSFERASE 18 U/L (15-37)
[2019-10-31] MEDS ORDERED: Omnipaque-300 100ml vial INJ PRN (22:00)
--- NOTE | 2019-10-31 22:28 | Diagnostic Imaging Report ---
Clinical Indication: Increase abdominal discomfort and periumbilical pain, multiple episodes of nausea and vomiting, history of recent hospitalization for intussusception causing bowel obstruction Technique: No oral contrast utilized, per emergency room physician request IV administration nonionic contrast. Venous phase spiral acquisition obtained through the abdomen and pelvis. Multiplanar reconstructions were generated. Total dose length product 488 mGycm. CTDIvol(s) 9 mGy. Dose reduction achieved using automated exposure control Comparison: 10/04/2019 Findings: Lack of enteric contrast limits evaluation. There is also some image degradation due to respiratory motion artifact. A single slightly prominent fluid-filled small bowel loop is seen in the upper abdomen. The small bowel is otherwise normal in caliber.. Previously demonstrated multiple small bowel intussusceptions are not evident currently. The appendix is probably visualized and normal. No evidence of colonic diverticulosis or diverticulitis. No free or loculated intraperitoneal gas or fluid is evident. The distal esophagus, stomach, duodenum are unremarkable. Previously demonstrated colonic mural enhancement is not evident currently. The liver appears somewhat enlarged. The gallbladder, bile ducts pancreas, spleen, adrenals, kidneys are unremarkable. No retroperitoneal or mesenteric mass or adenopathy. There is mild apparent bladder wall thickening. The included lung bases are clear. The bones are unremarkable. Impression: Mildly thick-walled bladder, probably artifact of under distention but the possibility of cystitis should be considered No acute process otherwise. Note that previously demonstrated small bowel intussusceptions are not currently evident Mild hepatomegaly This agrees with the preliminary interpretation provided overnight by [facility] teleradiology service. The CT scanner at [facility] is accredited by the [employer] and the scans are performed using protocols designed to limit radiation exposure to as low as reasonably achievable to attain images of sufficient resolution adequate for diagnostic evaluation.
--- NOTE | 2019-10-31 22:37 | NUR ---
ED Nurse Note: ERMD at bedside.
[2019-10-31 22:40] VITALS: BP 115/67
[2019-10-31] MEDS ORDERED: ONDANSETRON ODT4 MG BC (22:40)
[2019-10-31 22:58] VITALS: BP 114/66
--- NOTE | 2019-10-31 22:58 | NUR ---
ER DISCHARGE NOTE: Patient is cleared to be discharged per ERMD, pt is aox4, on room air, with stable vital signs. pt was given dc and prescription instructions, pt was able to verbalize understanding, pt id band and iv site removed intact without complications. pt is able to ambulate with steady gait. pt took all belongings. pt stable upon discharge.
== END 2019-10-31 22:58 | disposition other institution (70) ==
LOC: EMR 20:45
DX: E10.9 Type 1 diabetes mellitus without complications (principal); E86.0 Dehydration; J45.909 Unspecified asthma, uncomplicated
CPT/HCPCS: 36415; 74177; 80053; 82009; 82010; 82330; 82962; 83690; 83735; 83930; 85007; 85025; 93005; 96361; 96374; 96375; J2405; J7030; Q9967; S0028; Z7502; 99284

== ENCOUNTER 2020-02-10 16:02 | Emergency (ER) | payer OTHER ==
[~2020-02-10] VITALS: Ht 160 cm; Wt 61.2 kg
[2020-02-10] MEDS ORDERED: Tetanus/Diptheria/Pertussis IM ONE (16:15)
[2020-02-10 16:28] VITALS: BP 132/81
[2020-02-10] MEDS ORDERED: Morphine Sulfate 4mg/ml Inj (IV USE ONLY) IVP ONE ×3 (16:30→21:00)
[2020-02-10 16:42] LABS: HEMATOCRIT 49.8 % (42.0-52.0); HEMOGLOBIN 15.4 G/DL (14.2-18.0); MEAN CORPUSCULAR VOLUME 89 FL (80-99); PLATELET COUNT 248 K/UL (150-450); RED BLOOD COUNT 5.61 M/UL (4.70-6.10); WHITE BLOOD COUNT 19.5 K/UL (4.8-10.8)
--- NOTE | 2020-02-10 16:42 | Emergency Room Report ---
History of Present Illness General Chief Complaint: Abnormal Labs Source: Patient Present Illness HPI 24 YO male c/o " DKA". with 10/10 in severity abdominal pain with vomiting since last night. Also w. right hand laceration. not bleeding at this time. Right hand dominant. Last tetanus is unknown. PT. reports generalized abdominal pain. He denies constipation or diarrhea. He denies urinary frequency, urgency or hematuria. Patient denies low back pain. He denies paresthesias of the affected extremity with laceration. He denies DOAN. He denies recent head trauma or fall. Denies fevers or chills. Pt. reports he is unable to keep down food or water. He states he did not take his medications today. Reports THC use. 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: No Patient History Past Medical History: DM Past Surgical History: none Pertinent Family History: none Reviewed Nursing Documentation: PMH: Agreed; PSxH: Agreed Nursing Documentation-PMH Past Medical History: No History, Except For Hx Cardiac Problems: No - DKA Hx Asthma: Yes Hx Diabetes: Yes - TYPE I Hx Cancer: No Hx Gastrointestinal Problems: No Hx Neurological Problems: No Review of Systems All Other Systems: negative except mentioned in HPI Physical Exam Vital Signs Date Time Temp Pulse Resp B/P (MAP) Pulse Ox O2 Delivery O2 Flow Rate FiO2 02/10/20 16:17 99.1 84 18 132/81 (98) 100 Room Air Sp02 EP Interpretation: reviewed, normal General Appearance: alert, GCS 15, non-toxic, mild distress - Vomiting Head: normocephalic, atraumatic Eyes: bilateral eye normal inspection, bilateral eye PERRL ENT: hearing grossly normal, normal voice Neck: full range of motion Respiratory: lungs clear, normal breath sounds, no respiratory distress, no wheezing, speaking full sentences Cardiovascular #1: regular rate, rhythm Gastrointestinal: normal bowel sounds, soft, no peritonitis, non-distended, no guarding, tenderness - Diffuse tenderness Genitourinary: normal inspection, no CVA tenderness Musculoskeletal: normal range of motion, gait/station normal, non-tender Neurologic: alert, motor strength/tone normal, oriented x3, sensory intact, responsive, speech normal, grossly normal Psychiatric: judgement/insight normal Skin: no rash, normal color Medical Decision Making PA Attestation Dr. Abdullahi is my supervising Physician whom patient management has been discussed with. Diagnostic Impression: Primary Impression: Hyperglycemia Additional Impressions: Cystitis Colitis ER Course 24 YO male c/o " DKA". with 10/10 in severity abdominal pain with vomiting since last night. Also w. right hand laceration. not bleeding at this time. Right hand dominant. Last tetanus is unknown. PT. reports generalized abdominal pain. He denies constipation or diarrhea. He denies urinary frequency, urgency or hematuria. Patient denies low back pain. He denies paresthesias of the affected extremity with laceration. He denies DOAN. He denies recent head trauma or fall. Denies fevers or chills. Pt. reports he is unable to keep down food or water. He states he did not take his medications today. Reports THC use. Ddx considered but are not limited to laceration, Diverticulitis, acute appendicitis, diarrhea,UC, PUD, GE, pancreatitis, gallstones, UTI, DKA,or HONK just to name a few Vital signs: are WNL, pt. is afebrile H&PE are most consistent with right hand laceration & gastritis with need to rule out DKA/ pancreatitis. -- Pt. in mild distress, vomiting, and diffuse abdominal tenderness. - abdomen is soft. ORDERS: -CBC: Elevated WBC's 19.9 - CMP: Chloride 97, carbon dioxide 17, anion gap of 24. Leukos of 267 -Ketones: Positive-- moderate -Lipase: mildly elevated-- 38 - UA: 4+ glucose and 4+ ketones; Some bacteria with no squamous cells - UTI ED INTERVENTIONS: -- 1000ccNS IV x 2 - 4mg Morphine IVx 2 - IV Zofran 4mg x 2 Upon reevaluation patient still appears to be in mild distress he has persistent vomiting and continues to complain of abdominal pain. DISPOSITION: at this time pt. will be admitted for Hyperglycemia, Cystitis, and Colitis. PT. signed out to attending ED Physician pending transfer of care to admitting physician. Labs Test 02/10/20 16:21 02/10/20 17:35 White Blood Count 19.5 K/UL (4.8-10.8) Red Blood Count 5.61 M/UL (4.70-6.10) Hemoglobin 15.4 G/DL (14.2-18.0) Hematocrit 49.8 % (42.0-52.0) Mean Corpuscular Volume 89 FL (80-99) Mean Corpuscular Hemoglobin 27.5 PG (27.0-31.0) Mean Corpuscular Hemoglobin Concent 31.0 G/DL (32.0-36.0) Red Cell Distribution Width 13.0 % (11.6-14.8) Platelet Count 248 K/UL (150-450) Mean Platelet Volume 9.8 FL (6.5-10.1) Neutrophils (%) (Auto) % (45.0-75.0) Lymphocytes (%) (Auto) % (20.0-45.0) Monocytes (%) (Auto) % (1.0-10.0) Eosinophils (%) (Auto) % (0.0-3.0) Basophils (%) (Auto) % (0.0-2.0) Differential Total Cells Counted 100 Neutrophils % (Manual) 81 % (45-75) Lymphocytes % (Manual) 12 % (20-45) Monocytes % (Manual) 7 % (1-10) Eosinophils % (Manual) 0 % (0-3) Basophils % (Manual) 0 % (0-2) Band Neutrophils 0 % (0-8) Platelet Estimate Adequate Platelet Morphology Normal Polychromasia 1+ Hypochromasia 1+ Sodium Level 138 MMOL/L (136-145) Potassium Level 3.9 MMOL/L (3.5-5.1) Chloride Level 97 MMOL/L (98-107) Carbon Dioxide Level 17 MMOL/L (21-32) Anion Gap 24 mmol/L (5-15) Blood Urea Nitrogen 15 mg/dL (7-18) Creatinine 1.3 MG/DL (0.55-1.30) Estimat Glomerular Filtration Rate > 60 mL/min (>60) Glucose Level 267 MG/DL (74-106) Calcium Level 10.0 MG/DL (8.5-10.1) Magnesium Level 2.2 MG/DL (1.8-2.4) Total Bilirubin 1.8 MG/DL (0.2-1.0) Direct Bilirubin 0.2 MG/DL (0.0-0.3) Aspartate Amino Transf (AST/SGOT) 19 U/L (15-37) Alanine Aminotransferase (ALT/SGPT) 26 U/L (12-78) Alkaline Phosphatase 145 U/L (46-116) Total Protein 9.1 G/DL (6.4-8.2) Albumin 5.0 G/DL (3.4-5.0) Globulin 4.1 g/dL Albumin/Globulin Ratio 1.2 (1.0-2.7) Lipase 38 U/L (73-393) Acetone Level Positive-moderate (NEGATIVE) Urine Color Pale yellow Urine Appearance Clear Urine pH 5 (4.5-8.0) Urine Specific [place] 1.020 (1.005-1.035) Urine Protein 2+ (NEGATIVE) Urine Glucose (UA) 4+ (NEGATIVE) Urine Ketones 4+ (NEGATIVE) Urine Blood Negative (NEGATIVE) Urine Nitrite Negative (NEGATIVE) Urine Bilirubin Negative (NEGATIVE) Urine Urobilinogen Normal MG/DL (0.0-1.0) Urine Leukocyte Esterase Negative (NEGATIVE) Urine RBC 0-2 /HPF (0 - 0) Urine WBC 0-2 /HPF (0 - 0) Urine Squamous Epithelial Cells None /LPF (NONE/OCC) Urine Bacteria Occasional /HPF (NONE) EKG Diagnostic Results EP Interpretation: Dr. Abdullahi Rate: normal - 84 bpm Rhythm: NSR ST Segments: no acute changes - Old EKG from Oct 2019 was reviewed for comparison and determined to be similar. Other Impression Old EKG from Oct 2019 was reviewed for comparison and determined to be similar. ASA given to the pt in ED: No PA Scribe Text This Interpretation was scribed by THOMAS Canales. CT/MRI/US Diagnostic Results CT/MRI/US Diagnostic Results : Imaging Test Ordered: CT Abdomen and Pelvis w. IV contrast Impression "IMPRESSION: 1. Urinary bladder wall thickening. This could be incidental, correlate clinically to exclude infectious or inflammatory cystitis. 2. Diffuse segmental colonic wall thickening could be due to non-distention, although infectious or inflammatory colitis could also have this appearance. 3. Normal appendix. 4. Otherwise no acute abnormality definitively identified to account for patient presentation. " ---- Per official radiology report- Please see report for specific details. Last Vital Signs Date Time Temp Pulse Resp B/P (MAP) Pulse Ox O2 Delivery O2 Flow Rate FiO2 02/10/20 16:28 99.1 85 18 132/81 100 Room Air Disposition: ADMITTED INPATIENT Condition: Serious Signed Out To: Yael Mario February 10, 2020 16:42
[2020-02-10] MEDS ORDERED: Omnipaque-300 100ml vial INJ PRN (16:45)
[2020-02-10 17:02] LABS: ANION GAP 24 mmol/L (5-15); BLOOD UREA NITROGEN 15 mg/dL (7-18); CARBON DIOXIDE 17 MMOL/L (21-32); CHLORIDE 97 MMOL/L (98-107); CREATININE 1.3 MG/DL (0.55-1.30); POTASSIUM 3.9 MMOL/L (3.5-5.1); SODIUM 138 MMOL/L (136-145)
[2020-02-10 17:13] LABS: ALANINE AMINOTRANSFERASE 26 U/L (12-78); ALBUMIN/GLOBULIN RATIO 1.2 (1.0-2.7); ALKALINE PHOSPHATASE 145 U/L (46-116); ASPARTATE AMINO TRANSFERASE 19 U/L (15-37); BILIRUBIN,TOTAL 1.8 MG/DL (0.2-1.0)
[2020-02-10 17:17] LABS: BILIRUBIN,DIRECT 0.2 MG/DL (0.0-0.3)
[2020-02-10 17:52] LABS: APPEARANCE,URINE CLEAR; BILIRUBIN, URINE NEGATIVE (NEGATIVE); COLOR,URINE PALE YELLOW; GLUCOSE, URINE (UA) 4+ (NEGATIVE); KETONES,URINE 4+ (NEGATIVE); LEUKOCYTE ESTERASE ,URINE NEGATIVE (NEGATIVE); NITRITE,URINE NEGATIVE (NEGATIVE); PH,URINE 5 (4.5-8.0); PROTEIN,URINE 2+ (NEGATIVE); UROBILINOGEN,URINE NORMAL MG/DL (0.0-1.0)
--- NOTE | 2020-02-10 18:23 | Diagnostic Imaging Report ---
EXAM: CT Abdomen and Pelvis With Intravenous Contrast CLINICAL HISTORY: PAIN TECHNIQUE: Axial computed tomography images of the abdomen and pelvis with intravenous contrast. CTDI is 3.4 mGy and DLP is 171 mGy-cm. One or more of the following dose reduction techniques were used: automated exposure control, adjustment of the mA and/or kV according to patient size, use of iterative reconstruction technique. Coronal and sagittal reformatted images were created and reviewed. COMPARISON: 10/31/2019 FINDINGS: Lung bases: Unremarkable. No mass. No consolidation. ABDOMEN: Liver: Unremarkable. No mass. Gallbladder and bile ducts: Unremarkable. No calcified stones. No ductal dilation. Pancreas: Unremarkable. No mass. No ductal dilation. Spleen: Unremarkable. No splenomegaly. Adrenals: Unremarkable. No mass. Kidneys and ureters: Unremarkable. No solid mass. No hydronephrosis. Stomach and bowel: Diffuse segmental colonic wall thickening could be due to nondistention, although infectious or inflammatory colitis could also have this appearance. PELVIS: Appendix: Normal appendix. Bladder: Urinary bladder wall thickening. This could be incidental, correlate clinically to exclude infectious or inflammatory cystitis. Reproductive: Unremarkable as visualized. ABDOMEN and PELVIS: Intraperitoneal space: Unremarkable. No free air. No significant fluid collection. Bones/joints: No acute fracture. No dislocation. Soft tissues: Unremarkable. Vasculature: Unremarkable. No abdominal aortic aneurysm. Lymph nodes: Unremarkable. No enlarged lymph nodes. IMPRESSION: 1. Urinary bladder wall thickening. This could be incidental, correlate clinically to exclude infectious or inflammatory cystitis. 2. Diffuse segmental colonic wall thickening could be due to nondistention, although infectious or inflammatory colitis could also have this appearance. 3. Normal appendix. 4. Otherwise no acute abnormality definitively identified to account for patient presentation.
[2020-02-10 18:30] VITALS: BP 101/64
[2020-02-10] MEDS ORDERED: cefTRIAXone 1 GM in NS 55 ML IVPB ONE (19:00)
[2020-02-10 20:15] VITALS: BP 110/59
[2020-02-10] MEDS ORDERED: Insulin Human Regular 100units/ml 3ml IV ONE (20:30)
[2020-02-10 21:10] VITALS: BP 110/59
== END 2020-02-10 21:10 | disposition short-term general hospital (02) ==
LOC: EMR 17:09
DX: E10.65 Type 1 diabetes mellitus with hyperglycemia (principal); N30.91 Cystitis, unspecified with hematuria; K52.9 Noninfective gastroenteritis and colitis, unspecified; S61.411A Laceration without foreign body of right hand, initial encounter; X58.XXXA Exposure to other specified factors, initial encounter; Y92.9 Unspecified place or not applicable; Z23 Encounter for immunization
CPT/HCPCS: 36415; 74177; 80053; 81003; 82009; 82248; 82962; 83690; 83735; 85007; 85025; 90471; 90715; 93005; 96361; 96365; 96375; 96376; J0696; J1815; J2270; J2405; J7030; Q9967; Z7502; 99285